=== PATIENT | male | born 1950 | race Caucasian/White ===

== ENCOUNTER 2017-04-21 19:14 | Emergency (ER) | payer MEDICARE, OTHER ==
[~2017-04-21] VITALS: Ht 160 cm; Wt 86.2 kg
[~2017-04-21 19:14] MED LIST: ABILIFY5 MG ORAL; AMLODIPINE BESY10 MG ORAL; ASPIRIN81 MG ORAL; ATORVASTATIN CA20 MG ORAL; CHLORPROPAMIDE250 MG PO; CITALOPRAM HBR20 M1 ORAL; HYTRIN2 MG PO; LEVOTHYROXINE100 MCG ORAL; LEXAPRO20 MG ORAL; METOPROLOL SUCC25 MG ORAL; METOPROLOL TART50 M1 ORAL; MIRTAZAPINE15 M3 ORAL; NITROSTAT0.4 M2 SL
[2017-04-21 19:30] VITALS: BP 133/63
--- NOTE | 2017-04-21 19:37 | Emergency Room Report ---
History of Present Illness General Chief Complaint: Male Urogenital Problems Source: Patient Present Illness HPI Patient present with complaints of burning with urination he also feels that he has not been able to control his urine over the past one to 2 days Denies any retention denies any bloating or fullness sensation Denies any back or flank pain denies any change in medications denies any fevers or chills Allergies: Coded Allergies: CODEINE (Verified Allergy, Unknown, 06/19/13) Patient History Past Medical History: see triage record Pertinent Family History: none Reviewed Nursing Documentation: PMH: Agreed, PSxH: Agreed Nursing Documentation-PMH Hx Hypertension: Yes Hx Diabetes: Yes - Insipidus Review of Systems All Other Systems: negative except mentioned in HPI Physical Exam Vital Signs Date Time Temp Pulse Resp B/P (MAP) Pulse Ox O2 Delivery O2 Flow Rate FiO2 04/21/17 19:20 99.5 100 16 133/63 99 Room Air Sp02 EP Interpretation: reviewed, normal General Appearance: well appearing, no apparent distress Head: normocephalic, atraumatic Eyes: bilateral eye PERRL, bilateral eye EOMI ENT: hearing grossly normal, normal pharynx, TMs + canals normal, uvula midline Neck: full range of motion, supple, no meningismus, no bony tend Respiratory: lungs clear, normal breath sounds, no rhonchi, no respiratory distress, no retraction, no accessory muscle use Cardiovascular #1: normal peripheral pulses, regular rate, rhythm, no edema, no gallop, no JVD, no murmur Gastrointestinal: normal bowel sounds, non tender, soft, no mass, no organomegaly, non-distended, no guarding, no hernia, no pulsatile mass, no rebound Genitourinary: no CVA tenderness Musculoskeletal: normal inspection Neurologic: oriented x3, responsive, blasting entryman III-XII nml as tested, motor strength/ tone normal, sensory intact Psychiatric: mood/affect normal Skin: normal color, no rash, warm/dry, palpation normal Lymphatic: normal inspection, no adenopathy Medical Decision Making Diagnostic Impression: Primary Impression: UTI (urinary tract infection) ER Course Given the patient's history examined presentation urine sample was obtained There is clear signs of significant infection given this finding patient was given IM injection of Rocephin Requires antibiotic coverage close followup with primary physician for reevaluation As this infection could progress to pyelonephritis and sepsis patient is time not showing any signs of that and is appropriate for initial conservative outpatient trial Labs Test 04/21/17 19:50 Urine Color Yellow Urine Appearance Cloudy Urine pH 5 (4.5-8.0) Urine Specific [place] 1.020 (1.005-1.035) Urine Protein 3+ (NEGATIVE) Urine Glucose (UA) Negative (NEGATIVE) Urine Ketones Negative (NEGATIVE) Urine Occult Blood 5+ (NEGATIVE) Urine Nitrite Positive (NEGATIVE) Urine Bilirubin Negative (NEGATIVE) Urine Urobilinogen Normal MG/DL (0.0-1.0) Urine Leukocyte Esterase 3+ (NEGATIVE) Urine RBC 5-10 /HPF (0 - 0) Urine WBC Tntc /HPF (0 - 0) Urine Squamous Epithelial Cells None /LPF (NONE/OCC) Urine Bacteria Many /HPF (NONE) Last Vital Signs Date Time Temp Pulse Resp B/P (MAP) Pulse Ox O2 Delivery O2 Flow Rate FiO2 04/21/17 19:20 99.5 100 16 133/63 99 Room Air Status: improved Disposition: HOME, SELF-CARE Condition: Improved Additional Instructions: Patient is provided with the discharge instructions notified to follow up with primary doctor in the next 2-3 days otherwise return to the er with any worsening symptoms. Please note that this report is being documented using Curbside technology. This can lead to erroneous entry secondary to incorrect interpretation by the dictating instrument. SHERINE SAUL D.O. Apr 21, 2017 19:37
[2017-04-21 20:23] LABS: APPEARANCE,URINE CLOUDY; KETONES,URINE NEGATIVE (NEGATIVE); LEUKOCYTE ESTERASE ,URINE 3+ (NEGATIVE); NITRITE,URINE POSITIVE (NEGATIVE); PH,URINE 5 (4.5-8.0); PROTEIN,URINE 3+ (NEGATIVE); UROBILINOGEN,URINE NORMAL MG/DL (0.0-1.0)
[2017-04-21 20:40] LABS: BACTERIA,URINE MANY /HPF; WBC,URINE TNTC /HPF (0 - 0)
[2017-04-21] MEDS ORDERED: KEFLEX500 MG ORAL (20:57)
[2017-04-21] MEDS ORDERED: Lidocaine 1% MPF 10mg/ml 5ml IM ONE (21:00)
[2017-04-21 21:25] VITALS: BP 128/59
== END 2017-04-21 21:25 | disposition home or self-care (01) ==
LOC: EMR 19:47
DX: N39.0 Urinary tract infection, site not specified (principal); I10 Essential (primary) hypertension; E23.2 Diabetes insipidus; Z88.6 Allergy status to analgesic agent
CPT/HCPCS: 81003; 87086; 87181; 96372; 99284; J0696

== ENCOUNTER 2017-05-10 09:37 | Inpatient (IN) | payer MEDICARE, OTHER ==
[~2017-05-10] VITALS: Ht 160 cm; Wt 85.7 kg
[~2017-05-10 09:37] MED LIST changes: +KEFLEX500 MG ORAL
[2017-05-10 10:00] VITALS: BP 147/54
[2017-05-10 10:53] LABS: BASOPHILS % (AUTO) 0.4 % (0.0-2.0); EOSINOPHILS % (AUTO) 0.4 % (0.0-3.0); LYMPHOCYTES % (AUTO) 11.1 % (20.0-45.0); MEAN CORPUSCULAR HEMOGLOBIN 28.1 PG (27.0-31.0); MEAN CORPUSCULAR HGB CONC 32.2 G/DL (32.0-36.0); MEAN CORPUSCULAR VOLUME 87 FL (80-99); MEAN PLATELET VOLUME 5.7 FL (6.5-10.1); MONOCYTES % (AUTO) 3.6 % (1.0-10.0); NEUTROPHILS % (AUTO) 84.5 % (45.0-75.0); PLATELET COUNT 250 K/UL (150-450); RED BLOOD COUNT 4.65 M/UL (4.70-6.10); WHITE BLOOD COUNT 10.6 K/UL (4.8-10.8)
[2017-05-10 10:58] VITALS: BP 138/53
[2017-05-10 10:59] LABS: ANION GAP 8 mmol/L (5-15); CALCIUM 8.9 MG/DL (8.5-10.1); CARBON DIOXIDE 26 MMOL/L (21-32); CHLORIDE 96 MMOL/L (98-107); CREATININE 1.2 MG/DL (0.55-1.30); GLOMERULAR FILTRATION RATE > 60 mL/min (>60); POTASSIUM 3.9 MMOL/L (3.5-5.1); SODIUM 130 MMOL/L (136-145)
[2017-05-10 11:06] LABS: APPEARANCE,URINE CLOUDY; KETONES,URINE NEGATIVE (NEGATIVE); LEUKOCYTE ESTERASE ,URINE 3+ (NEGATIVE); NITRITE,URINE POSITIVE (NEGATIVE); PH,URINE 5 (4.5-8.0); PROTEIN,URINE 3+ (NEGATIVE); UROBILINOGEN,URINE NORMAL MG/DL (0.0-1.0)
[2017-05-10 11:10] LABS: REFLEX LACTIC ACID YES OR NO YES
[2017-05-10 11:18] LABS: BACTERIA,URINE MANY /HPF; RBC,URINE 15-20 /HPF (0 - 0); SQUAMOUS EPITHELIAL CELL,UR OCCASIONAL /LPF (NONE/OCC); WBC,URINE TNTC /HPF (0 - 0)
[2017-05-10 11:21] LABS: ALANINE AMINOTRANSFERASE 29 U/L (12-78); ALBUMIN/GLOBULIN RATIO 0.9 (1.0-2.7); ASPARTATE AMINO TRANSFERASE 18 U/L (15-37); CKMB 1.6 NG/ML (0.0-3.6); TOTAL PROTEIN 7.4 G/DL (6.4-8.2)
[2017-05-10 11:48] LABS: ICTOTEST NEGATIVE
[2017-05-10] MEDS ORDERED: cefTRIAXone 1 GM in NS 55 ML IVPB ONE (12:30)
[2017-05-10 13:53] VITALS: BP 117/72
[2017-05-10] MEDS ORDERED: Albuterol/Ipratropium 3ml neb HHN PRN (14:15)
[2017-05-10] MEDS ORDERED: Miralax 17gm pkt ORAL PRN (14:15)
--- NOTE | 2017-05-10 14:16 | Consultation ---
History of Present Illness General Date patient seen: May 10, 2017 Chief Complaint: Male Urogenital Problems Reason for Consultation: inpatient management Present Illness HPI 66 year old male with hx of Depression, DM, HTN, Hypothyroid present to ER with CC of burning pain with urination and unable to empty my bladder x 1 day; patient is admitted ofr UTI and intractable pain. Allergies: Coded Allergies: CODEINE (Verified Allergy, Unknown, 06/19/13) GRAPEFRUIT (Verified Allergy, Unknown, 05/10/17) Medication History Scheduled Amlodipine Besylate* (Amlodipine Besylate*), 5 MG ORAL DAILY, (Reported) Aripiprazole* (Abilify*), 5 MG ORAL DAILY Aspirin* (Aspirin*), 81 MG ORAL DAILY, (Reported) Atorvastatin Calcium* (Atorvastatin Calcium*), 20 MG ORAL BEDTIME, (Reported) Cephalexin* (Keflex*), 500 MG ORAL Q6H Chlorpropamide (Chlorpropamide), 250 MG PO every other day, (Reported) Citalopram Hydrobromide* (Citalopram Hbr*), 10 MG ORAL DAILY, (Reported) Levothyroxine Sodium* (Levothyroxine Sodium*), 100 MCG ORAL DAILY, (Reported) Metoprolol Succinate* (Metoprolol Succinate*), 25 MG ORAL DAILY, (Reported) Mirtazapine* (Mirtazapine*), 15 MG ORAL BEDTIME, (Reported) Terazosin HCl (Terazosin HCl), 2 MG PO QHS, (Reported) Scheduled PRN Nitroglycerin (Nitrostat), 0.4 MG SL unknown PRN for chest pain, (Reported) Patient History Healthcare decision maker Resuscitation status Full Code Advanced Directive on File Past Medical/Surgical History Past Medical/Surgical History: (1) Diabetes (2) Hypothyroid Review of Systems Constitutional: Reports: no symptoms Eye: Reports: no symptoms ENT: Reports: no symptoms Physical Exam General Appearance: WD/WN Lines, tubes and drains: peripheral, PICC HEENT: normocephalic, anicteric Neck: non-tender, normal alignment, limited range of motion Respiratory/Chest: lungs clear Cardiovascular/Chest: normal peripheral pulses, normal rate Abdomen: normal bowel sounds, non tender Genitourinary/Rectal: normal genital exam Last 24 Hour Vital Signs Date Time Temp Pulse Resp B/P (MAP) Pulse Ox O2 Delivery O2 Flow Rate FiO2 05/10/17 13:53 97.2 98 20 117/72 99 Room Air 05/10/17 13:03 98.1 70 16 132/60 98 Room Air 05/10/17 10:58 98.1 69 14 138/53 97 Room Air 05/10/17 10:00 98.1 14 147/54 97 Room Air 05/10/17 09:44 98.1 78 14 147/54 97 Room Air Laboratory Tests Test 05/10/17 10:27 White Blood Count 10.6 K/UL (4.8-10.8) Red Blood Count 4.65 M/UL (4.70-6.10) L Hemoglobin 13.1 G/DL (14.2-18.0) L Hematocrit 40.6 % (42.0-52.0) L Mean Corpuscular Volume 87 FL (80-99) Mean Corpuscular Hemoglobin 28.1 PG (27.0-31.0) Mean Corpuscular Hemoglobin Concent 32.2 G/DL (32.0-36.0) Red Cell Distribution Width 12.0 % (11.6-14.8) Platelet Count 250 K/UL (150-450) Mean Platelet Volume 5.7 FL (6.5-10.1) L Neutrophils (%) (Auto) 84.5 % (45.0-75.0) H Lymphocytes (%) (Auto) 11.1 % (20.0-45.0) L Monocytes (%) (Auto) 3.6 % (1.0-10.0) Eosinophils (%) (Auto) 0.4 % (0.0-3.0) Basophils (%) (Auto) 0.4 % (0.0-2.0) Urine Color Jewell Urine Appearance Cloudy Urine pH 5 (4.5-8.0) Urine Specific [place] 1.025 (1.005-1.035) Urine Protein 3+ (NEGATIVE) H Urine Glucose (UA) Negative (NEGATIVE) Urine Ketones Negative (NEGATIVE) Urine Occult Blood 5+ (NEGATIVE) H Urine Nitrite Positive (NEGATIVE) H Urine Bilirubin Negative (NEGATIVE) Urine Ictotest Negative Urine Urobilinogen Normal MG/DL (0.0-1.0) Urine Leukocyte Esterase 3+ (NEGATIVE) H Urine RBC 15-20 /HPF (0 - 0) H Urine WBC Tntc /HPF (0 - 0) H Urine Squamous Epithelial Cells Occasional /LPF Urine Bacteria Many /HPF (NONE) H Sodium Level 130 MMOL/L (136-145) L Potassium Level 3.9 MMOL/L (3.5-5.1) Chloride Level 96 MMOL/L (98-107) L Carbon Dioxide Level 26 MMOL/L (21-32) Anion Gap 8 mmol/L (5-15) Blood Urea Nitrogen 18 mg/dL (7-18) Creatinine 1.2 MG/DL (0.55-1.30) Estimat Glomerular Filtration Rate > 60 mL/min (>60) Glucose Level 194 MG/DL (74-106) H Lactic Acid Level 2.10 mmol/L (0.66-2.22) Calcium Level 8.9 MG/DL (8.5-10.1) Total Bilirubin 0.9 MG/DL (0.2-1.0) Aspartate Amino Transf (AST/SGOT) 18 U/L (15-37) Alanine Aminotransferase (ALT/SGPT) 29 U/L (12-78) Alkaline Phosphatase 99 U/L (46-116) Total Creatine Kinase 60 U/L (26-308) Creatine Kinase MB 1.6 NG/ML (0.0-3.6) Creatine Kinase MB Relative Index 2.6 Total Protein 7.4 G/DL (6.4-8.2) Albumin 3.4 G/DL (3.4-5.0) Globulin 4.0 g/dL Albumin/Globulin Ratio 0.9 (1.0-2.7) L Height (Feet): 5 Height (Inches): 3.00 Weight (Pounds): 189 Assessment/Plan Problem List: (1) Sepsis ICD Codes: A41.9 - Sepsis, unspecified organism SNOMED: 95630031 (2) UTI (urinary tract infection) ICD Codes: N39.0 - Urinary tract infection, site not specified SNOMED: 73507747 (3) Hyponatremia ICD Codes: E87.1 - Hypo-osmolality and hyponatremia SNOMED: 97322621 (4) Diabetes ICD Codes: E11.9 - Type 2 diabetes mellitus without complications SNOMED: 59775311 Assessment/Plan urine cultures IV abx sliding scale check T3, T4 diabetic diet dvt prophylaxis ZARRABI,MIRALI May 10, 2017 14:16
[2017-05-10 17:20] VITALS: BP 150/63
[2017-05-10] MEDS: Cefepime HCl 2 GM in NS 110 ML IV SCH (17:25)
[2017-05-10 21:00] VITALS: BP 132/63
[2017-05-10] MEDS: Heparin 5000 units/ml inj SUBQ SCH (21:00)
[2017-05-10] MEDS: Terazosin 2mg cap ORAL SCH (22:03)
[2017-05-11] VITALS: BP 131/63
--- NOTE | 2017-05-11 00:30 | History and Physical Report ---
DATE OF ADMISSION: 05/10/2017 TIME SEEN: At 1 p.m. CONSULTANTS: 1. Chelsea Quigley M.D. 2. Kendall Duncan M.D. 3. Dr. Rodarte. CHIEF COMPLAINT: Fever, weakness, UTI, resistant to treatment, hyponatremia. BRIEF HISTORY: A 66-year-old male from home presents to [facility] today with refractory treatment to UTI. He was here about a week ago. He was given cephalexin without improvement. The patient continued to be tired and have fever, diagnosed with UTI, sepsis, and hyponatremia and admitted to medical floor for further treatment. Currently, calm in bed. No complaint. No chest pain or shortness of breath. No nausea, vomiting, or diarrhea. PAST MEDICAL HISTORY: Include diabetes insipidus, hypertension, hypothyroid, prostate issue. PAST SURGICAL HISTORY: Bypass. MEDICATIONS: Include Ceftriaxone and IV fluids. We will obtain other list of medications shortly. ALLERGIES: Codeine. SOCIAL HISTORY: No smoking or alcohol. No intravenous drug abuse. FAMILY HISTORY: Noncontributory. PHYSICAL EXAMINATION: GENERAL: Calm in bed, oriented x3, in no acute distress. VITAL SIGNS: Show temperature is 98 degrees, pulse 70, respirations 16, and blood pressure 132/60. CARDIOVASCULAR: No murmur. LUNGS: Distant and clear. ABDOMEN: Bowel sounds are positive. Nontender and nondistended. EXTREMITIES: No cyanosis, clubbing, or edema. NEUROLOGICAL: The patient moves all extremities slightly weak. LABORATORY DATA: Laboratory exam show hemoglobin 13.1, otherwise CBC is normal. BMP show sodium 130, chloride is 96, glucose 194. Urinalysis show 5+ occult blood, positive nitrite, and 3+ leukocyte esterase. ASSESSMENT: 1. Urinary tract infection. 2. Sepsis. 3. Hyponatremia. 4. Anemia. 5. Diabetes. 6. Hypertension. 7. Hypothyroid. 8. Prostate issue. PLAN: 1. Continue premedications. 2. OT, PT, and dietary evaluation. 3. CBC and BMP in the morning. 4. Antibiotics per Infectious Disease. 5. Resume home medications. 6. Dr. Quigley, Dr. Duncan, and Dr. Rodarte to consult. Garth Madrigal D.O. DR: Mulugeta JOB#: [id number] CC:
[2017-05-11 04:00] VITALS: BP 132/73
[2017-05-11 07:44] LABS: BASOPHILS % (AUTO) 0.3 % (0.0-2.0); EOSINOPHILS % (AUTO) 0.7 % (0.0-3.0); LYMPHOCYTES % (AUTO) 15.2 % (20.0-45.0); MEAN CORPUSCULAR HEMOGLOBIN 29.5 PG (27.0-31.0); MEAN CORPUSCULAR HGB CONC 34.5 G/DL (32.0-36.0); MEAN CORPUSCULAR VOLUME 85 FL (80-99); MEAN PLATELET VOLUME 6.6 FL (6.5-10.1); NEUTROPHILS % (AUTO) 77.8 % (45.0-75.0); PLATELET COUNT 251 K/UL (150-450); RED BLOOD COUNT 4.17 M/UL (4.70-6.10); RED CELL DISTRIBUTION WIDTH 12.1 % (11.6-14.8); WHITE BLOOD COUNT 9.4 K/UL (4.8-10.8)
[2017-05-11 07:58] LABS: ALANINE AMINOTRANSFERASE 26 U/L (12-78); ALBUMIN/GLOBULIN RATIO 0.8 (1.0-2.7); ANION GAP 7 mmol/L (5-15); ASPARTATE AMINO TRANSFERASE 18 U/L (15-37); CALCIUM 8.8 MG/DL (8.5-10.1); CARBON DIOXIDE 27 MMOL/L (21-32); CHLORIDE 98 MMOL/L (98-107); CREATININE 1.1 MG/DL (0.55-1.30); GLOMERULAR FILTRATION RATE > 60 mL/min (>60); POTASSIUM 3.9 MMOL/L (3.5-5.1); SODIUM 132 MMOL/L (136-145); TOTAL PROTEIN 6.8 G/DL (6.4-8.2)
[2017-05-11 08:00] VITALS: BP 107/54
[2017-05-11 08:06] LABS: BILIRUBIN,DIRECT 0.2 MG/DL (0.0-0.3)
--- NOTE | 2017-05-11 08:22 | General Progress Note ---
Assessment/Plan Problem List: (1) Sepsis ICD Codes: A41.9 - Sepsis, unspecified organism SNOMED: 28766493 (2) Hyponatremia ICD Codes: E87.1 - Hypo-osmolality and hyponatremia SNOMED: 89367398 (3) Diabetes ICD Codes: E11.9 - Type 2 diabetes mellitus without complications SNOMED: 83103282 (4) HTN (hypertension) ICD Codes: I10 - Essential (primary) hypertension SNOMED: 29828804 (5) Hypothyroid ICD Codes: E03.9 - Hypothyroidism, unspecified SNOMED: 31849242 (6) Anemia ICD Codes: D64.9 - Anemia, unspecified SNOMED: 418349597 (7) UTI (urinary tract infection) ICD Codes: N39.0 - Urinary tract infection, site not specified SNOMED: 01625869 Status: stable, progressing, tolerating diet Assessment/Plan ot pt diet bs control abx cbc bmp am Subjective Constitutional: Reports: weakness Allergies: Coded Allergies: CODEINE (Verified Allergy, Unknown, 06/19/13) GRAPEFRUIT (Verified Allergy, Unknown, 05/10/17) All Systems: reviewed and negative except above Subjective calm in bed Objective Last 24 Hour Vital Signs Date Time Temp Pulse Resp B/P (MAP) Pulse Ox O2 Delivery O2 Flow Rate FiO2 05/11/17 04:00 98.4 62 18 132/73 96 Room Air 05/11/17 00:00 99.1 72 18 131/63 96 Room Air 05/10/17 21:00 99.2 73 18 132/63 96 Room Air 05/10/17 19:49 71 20 Room Air 05/10/17 17:20 98.0 68 20 150/63 98 Room Air 05/10/17 13:53 97.2 98 20 117/72 99 Room Air 05/10/17 13:03 98.1 70 16 132/60 98 Room Air 05/10/17 10:58 98.1 69 14 138/53 97 Room Air 05/10/17 10:00 98.1 14 147/54 97 Room Air 05/10/17 09:44 98.1 78 14 147/54 97 Room Air Laboratory Tests 05/10/17 10:27: White Blood Count 10.6, Red Blood Count 4.65L, Hemoglobin 13.1L, Hematocrit 40.6L, Mean Corpuscular Volume 87, Mean Corpuscular Hemoglobin 28.1, Mean Corpuscular Hemoglobin Concent 32.2, Red Cell Distribution Width 12.0, Platelet Count 250, Mean Platelet Volume 5.7L, Neutrophils (%) (Auto) 84.5H, Lymphocytes (%) (Auto) 11.1L, Monocytes (%) (Auto) 3.6, Eosinophils (%) (Auto) 0.4, Basophils (%) (Auto) 0.4, Urine Color Jewell, Urine Appearance Cloudy, Urine pH 5 , Urine Specific [place] 1.025, Urine Protein 3+H, Urine Glucose (UA) Negative, Urine Ketones Negative, Urine Occult Blood 5+H, Urine Nitrite PositiveH, Urine Bilirubin Negative, Urine Ictotest Negative, Urine Urobilinogen Normal, Urine Leukocyte Esterase 3+H, Urine RBC 15-20H, Urine WBC TntcH, Urine Squamous Epithelial Cells Occasional, Urine Bacteria ManyH, Sodium Level 130L, Potassium Level 3.9, Chloride Level 96L, Carbon Dioxide Level 26, Anion Gap 8, Blood Urea Nitrogen 18, Creatinine 1.2, Estimat Glomerular Filtration Rate > 60, Glucose Level 194H, Lactic Acid Level 2.10, Calcium Level 8.9, Total Bilirubin 0.9, Aspartate Amino Transf (AST/SGOT) 18, Alanine Aminotransferase (ALT/SGPT) 29, Alkaline Phosphatase 99, Total Creatine Kinase 60, Creatine Kinase MB 1.6, Creatine Kinase MB Relative Index 2.6, Total Protein 7.4, Albumin 3.4, Globulin 4.0, Albumin/Globulin Ratio 0.9L 05/11/17 06:31: White Blood Count 9.4, Red Blood Count 4.17L, Hemoglobin 12.3L, Hematocrit 35.6L , Mean Corpuscular Volume 85, Mean Corpuscular Hemoglobin 29.5, Mean Corpuscular Hemoglobin Concent 34.5, Red Cell Distribution Width 12.1, Platelet Count 251, Mean Platelet Volume 6.6, Neutrophils (%) (Auto) 77.8H, Lymphocytes ( %) (Auto) 15.2L, Monocytes (%) (Auto) 6.0, Eosinophils (%) (Auto) 0.7, Basophils (%) (Auto) 0.3, Sodium Level 132L, Potassium Level 3.9, Chloride Level 98, Carbon Dioxide Level 27, Anion Gap 7, Blood Urea Nitrogen 10, Creatinine 1.1, Estimat Glomerular Filtration Rate > 60, Glucose Level 142H, Calcium Level 8.8, Total Bilirubin 1.3H, Aspartate Amino Transf (AST/SGOT) 18, Alanine Aminotransferase (ALT/SGPT) 26, Alkaline Phosphatase 84, Total Protein 6.8, Albumin 3.1L, Globulin 3.7, Albumin/Globulin Ratio 0.8L, Direct Bilirubin 0.2 Height (Feet): 5 Height (Inches): 3.00 Weight (Pounds): 189 General Appearance: lethargic EENT: normal ENT inspection Neck: normal alignment Cardiovascular: normal peripheral pulses, normal rate, regular rhythm Respiratory/Chest: chest wall non-tender, lungs clear, normal breath sounds Abdomen: normal bowel sounds, non tender, soft Extremities: normal inspection Edema: no edema noted Arm (L), no edema noted Arm (R), no edema noted Leg (L), no edema noted Leg (R), no edema noted Pedal (L), no edema noted Pedal (R), no edema noted Generalized Neurologic: motor weakness Skin: normal pigmentation, warm/dry BRANT HAZEL May 11, 2017 08:22
--- NOTE | 2017-05-11 08:43 | Pulmonology Progress Note ---
Assessment/Plan Problems: (1) Sepsis (2) UTI (urinary tract infection) (3) Hyponatremia (4) Diabetes Assessment/Plan asymptomatic check urine culture anemia w/u check Na in am dc planning soon. Subjective ROS Limited/Unobtainable: No Constitutional: Reports: no symptoms Respiratory: Reports: no symptoms Cardiovascular: Reports: no symptoms Allergies: Coded Allergies: CODEINE (Verified Allergy, Unknown, 06/19/13) GRAPEFRUIT (Verified Allergy, Unknown, 05/10/17) Objective Last 24 Hour Vital Signs Date Time Temp Pulse Resp B/P (MAP) Pulse Ox O2 Delivery O2 Flow Rate FiO2 05/11/17 08:15 71 20 Room Air 05/11/17 04:00 98.4 62 18 132/73 96 Room Air 05/11/17 00:00 99.1 72 18 131/63 96 Room Air 05/10/17 21:00 99.2 73 18 132/63 96 Room Air 05/10/17 19:49 71 20 Room Air 05/10/17 17:20 98.0 68 20 150/63 98 Room Air 05/10/17 13:53 97.2 98 20 117/72 99 Room Air 05/10/17 13:03 98.1 70 16 132/60 98 Room Air 05/10/17 10:58 98.1 69 14 138/53 97 Room Air 05/10/17 10:00 98.1 14 147/54 97 Room Air 05/10/17 09:44 98.1 78 14 147/54 97 Room Air General Appearance: WD/WN HEENT: normocephalic, anicteric Respiratory/Chest: chest wall non-tender, lungs clear Cardiovascular: normal peripheral pulses, regular rhythm Abdomen: normal bowel sounds, no organomegaly Extremities: no cyanosis Skin: no rash Laboratory Tests 05/10/17 10:27: White Blood Count 10.6, Red Blood Count 4.65L, Hemoglobin 13.1L, Hematocrit 40.6L, Mean Corpuscular Volume 87, Mean Corpuscular Hemoglobin 28.1, Mean Corpuscular Hemoglobin Concent 32.2, Red Cell Distribution Width 12.0, Platelet Count 250, Mean Platelet Volume 5.7L, Neutrophils (%) (Auto) 84.5H, Lymphocytes (%) (Auto) 11.1L, Monocytes (%) (Auto) 3.6, Eosinophils (%) (Auto) 0.4, Basophils (%) (Auto) 0.4, Urine Color Jewell, Urine Appearance Cloudy, Urine pH 5 , Urine Specific [place] 1.025, Urine Protein 3+H, Urine Glucose (UA) Negative, Urine Ketones Negative, Urine Occult Blood 5+H, Urine Nitrite PositiveH, Urine Bilirubin Negative, Urine Ictotest Negative, Urine Urobilinogen Normal, Urine Leukocyte Esterase 3+H, Urine RBC 15-20H, Urine WBC TntcH, Urine Squamous Epithelial Cells Occasional, Urine Bacteria ManyH, Sodium Level 130L, Potassium Level 3.9, Chloride Level 96L, Carbon Dioxide Level 26, Anion Gap 8, Blood Urea Nitrogen 18, Creatinine 1.2, Estimat Glomerular Filtration Rate > 60, Glucose Level 194H, Lactic Acid Level 2.10, Calcium Level 8.9, Total Bilirubin 0.9, Aspartate Amino Transf (AST/SGOT) 18, Alanine Aminotransferase (ALT/SGPT) 29, Alkaline Phosphatase 99, Total Creatine Kinase 60, Creatine Kinase MB 1.6, Creatine Kinase MB Relative Index 2.6, Total Protein 7.4, Albumin 3.4, Globulin 4.0, Albumin/Globulin Ratio 0.9L 05/11/17 06:31: White Blood Count 9.4, Red Blood Count 4.17L, Hemoglobin 12.3L, Hematocrit 35.6L , Mean Corpuscular Volume 85, Mean Corpuscular Hemoglobin 29.5, Mean Corpuscular Hemoglobin Concent 34.5, Red Cell Distribution Width 12.1, Platelet Count 251, Mean Platelet Volume 6.6, Neutrophils (%) (Auto) 77.8H, Lymphocytes ( %) (Auto) 15.2L, Monocytes (%) (Auto) 6.0, Eosinophils (%) (Auto) 0.7, Basophils (%) (Auto) 0.3, Sodium Level 132L, Potassium Level 3.9, Chloride Level 98, Carbon Dioxide Level 27, Anion Gap 7, Blood Urea Nitrogen 10, Creatinine 1.1, Estimat Glomerular Filtration Rate > 60, Glucose Level 142H, Calcium Level 8.8, Total Bilirubin 1.3H, Aspartate Amino Transf (AST/SGOT) 18, Alanine Aminotransferase (ALT/SGPT) 26, Alkaline Phosphatase 84, Total Protein 6.8, Albumin 3.1L, Globulin 3.7, Albumin/Globulin Ratio 0.8L, Direct Bilirubin 0.2 Current Medications Medications (Trade) Dose Ordered Sig/Tez Route PRN Reason Start Time Stop Time Status Last Admin Dose Admin Acetaminophen (Tylenol) 650 mg Q4H PRN ORAL fever 05/10/17 14:15 06/09/17 14:14 Albuterol/ Ipratropium (Albuterol/ Ipratropium) 3 ml Q4H PRN HHN Shortness of Breath 05/10/17 14:15 05/15/17 14:14 Amlodipine Besylate (Norvasc) 5 mg DAILY ORAL 05/11/17 09:00 06/10/17 08:59 Atorvastatin Calcium (Lipitor) 20 mg BEDTIME ORAL 05/10/17 21:00 06/09/17 20:59 05/10/17 22:03 Cefepime HCl 2 gm/ Sodium Chloride 110 ml @ 220 mls/hr DAILY@1700 IV 05/10/17 17:01 05/17/17 17:00 05/10/17 17:25 Heparin Sodium (Porcine) (Heparin 5000 units/ml) 5,000 units EVERY 12 HOURS SUBQ 05/10/17 21:00 06/09/17 20:59 Levothyroxine Sodium (Synthroid) 100 mcg ACBREAKFAST ORAL 05/11/17 06:30 06/10/17 06:29 05/11/17 05:44 Metoprolol Succinate (Toprol XL) 25 mg DAILY ORAL 05/11/17 09:00 06/10/17 08:59 Mirtazapine (Remeron) 15 mg BEDTIME ORAL 05/10/17 21:00 06/09/17 20:59 05/10/17 22:03 Ondansetron HCl (Zofran) 4 mg Q6H PRN IVP Nausea & Vomiting 05/10/17 14:15 06/09/17 14:14 Phenazopyridine HCl (Pyridium) 100 mg DAILYPRN PRN ORAL dysuria 05/10/17 14:15 06/09/17 14:14 05/10/17 17:23 Polyethylene Glycol (Miralax) 17 gm DAILYPRN PRN ORAL Constipation 05/10/17 14:15 06/09/17 14:14 Temazepam (Restoril) 15 mg HSPRN PRN ORAL Insomnia 05/10/17 14:15 05/17/17 14:14 Terazosin HCl (Hytrin) 2 mg QHS ORAL 05/10/17 21:00 06/09/17 20:59 05/10/17 22:03 Vancomycin HCl (Vanco rx to dose) 1 ea DAILY PRN MISC PRN RX TO DOSE PROTOCOL 05/10/17 15:45 06/09/17 15:44 Vancomycin HCl 1 gm/Dextrose 250 ml @ 166.636 mls/hr Q12HR@0600,1800 IVPB 05/10/17 18:00 05/15/17 17:59 05/11/17 05:44 AYSUH COUGHLIN May 11, 2017 08:43
[2017-05-11] MEDS: Metoprolol Succinate XL 25mg tab ORAL SCH (09:00)
[2017-05-11] MEDS ORDERED: NS 275ml ONE (09:39)
[2017-05-11] MEDS ORDERED: Tubing IV Secondary IV ONE (09:39)
[2017-05-11] MEDS: Heparin 5000 units/ml inj SUBQ SCH ×2 (09:44→20:41)
[2017-05-11 12:00] VITALS: BP 126/74
[2017-05-11 16:00] VITALS: BP 130/72
--- NOTE | 2017-05-11 16:54 | Emergency Room Report ---
History of Present Illness General Chief Complaint: Male Urogenital Problems Source: Patient Present Illness HPI Patient presents with complaints of suprapubic discomfort Painful urination Feels generally weak and malaise Patient was here recently with UTI Appears to have failed outpatient therapy he reports that he felt initially somewhat better However now the symptoms are coming back Denies any flank pain denies any neck pain or photophobia Allergies: Coded Allergies: CODEINE (Verified Allergy, Unknown, 06/19/13) GRAPEFRUIT (Verified Allergy, Unknown, 05/10/17) Patient History Past Medical History: see triage record Pertinent Family History: none Reviewed Nursing Documentation: PMH: Agreed, PSxH: Agreed Nursing Documentation-PMH Past Medical History: No History, Except For Hx Cardiac Problems: Yes Hx Hypertension: Yes Hx Pacemaker: No Hx Asthma: No Hx COPD: No Hx Diabetes: Yes - DIABETIC INSIPIDUS Hx Cancer: No Hx Gastrointestinal Problems: No Hx Dialysis: No History Of Psychiatric Problem: Yes - Depression Hx Neurological Problems: No Hx Cerebrovascular Accident: No Hx Seizures: No Review of Systems All Other Systems: negative except mentioned in HPI Physical Exam Vital Signs Date Time Temp Pulse Resp B/P (MAP) Pulse Ox O2 Delivery O2 Flow Rate FiO2 05/10/17 09:44 98.1 78 14 147/54 97 Room Air Sp02 EP Interpretation: reviewed, normal General Appearance: well appearing, no apparent distress Head: normocephalic, atraumatic Eyes: bilateral eye PERRL, bilateral eye EOMI ENT: hearing grossly normal, normal pharynx, TMs + canals normal, uvula midline Neck: full range of motion, supple, no meningismus, no bony tend Respiratory: lungs clear, normal breath sounds, no rhonchi, no respiratory distress, no retraction, no accessory muscle use Cardiovascular #1: normal peripheral pulses, regular rate, rhythm, no edema, no gallop, no JVD, no murmur Gastrointestinal: normal bowel sounds, soft, no mass, no organomegaly, non- distended, no guarding, no hernia, no pulsatile mass, no rebound, tenderness - Uncomfortable on palpation over the suprapubic and mid abdominal region Genitourinary: no CVA tenderness Musculoskeletal: normal inspection Neurologic: oriented x3, responsive, 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, motor strength/ tone normal, sensory intact Psychiatric: mood/affect normal Skin: normal color, no rash, warm/dry, palpation normal Lymphatic: normal inspection, no adenopathy Medical Decision Making Diagnostic Impression: Primary Impression: UTI (urinary tract infection) Additional Impression: sepsis ER Course Multiple differentials considered Included but not limited to sepsis, severe sepsis, UTI, pyelonephritis Patient's a urine sample shows significant infection Given the patient's failed outpatient therapy and general malaise patient will be initiated on IV antibiotics and admitted for further care Labs Test 05/10/17 10:27 05/11/17 06:31 White Blood Count 10.6 K/UL (4.8-10.8) 9.4 K/UL (4.8-10.8) Red Blood Count 4.65 M/UL (4.70-6.10) 4.17 M/UL (4.70-6.10) Hemoglobin 13.1 G/DL (14.2-18.0) 12.3 G/DL (14.2-18.0) Hematocrit 40.6 % (42.0-52.0) 35.6 % (42.0-52.0) Mean Corpuscular Volume 87 FL (80-99) 85 FL (80-99) Mean Corpuscular Hemoglobin 28.1 PG (27.0-31.0) 29.5 PG (27.0-31.0) Mean Corpuscular Hemoglobin Concent 32.2 G/DL (32.0-36.0) 34.5 G/DL (32.0-36.0) Red Cell Distribution Width 12.0 % (11.6-14.8) 12.1 % (11.6-14.8) Platelet Count 250 K/UL (150-450) 251 K/UL (150-450) Mean Platelet Volume 5.7 FL (6.5-10.1) 6.6 FL (6.5-10.1) Neutrophils (%) (Auto) 84.5 % (45.0-75.0) 77.8 % (45.0-75.0) Lymphocytes (%) (Auto) 11.1 % (20.0-45.0) 15.2 % (20.0-45.0) Monocytes (%) (Auto) 3.6 % (1.0-10.0) 6.0 % (1.0-10.0) Eosinophils (%) (Auto) 0.4 % (0.0-3.0) 0.7 % (0.0-3.0) Basophils (%) (Auto) 0.4 % (0.0-2.0) 0.3 % (0.0-2.0) Urine Color [place] Urine Appearance Cloudy Urine pH 5 (4.5-8.0) Urine Specific [place] 1.025 (1.005-1.035) Urine Protein 3+ (NEGATIVE) Urine Glucose (UA) Negative (NEGATIVE) Urine Ketones Negative (NEGATIVE) Urine Occult Blood 5+ (NEGATIVE) Urine Nitrite Positive (NEGATIVE) Urine Bilirubin Negative (NEGATIVE) Urine Ictotest Negative Urine Urobilinogen Normal MG/DL (0.0-1.0) Urine Leukocyte Esterase 3+ (NEGATIVE) Urine RBC 15-20 /HPF (0 - 0) Urine WBC Tntc /HPF (0 - 0) Urine Squamous Epithelial Cells Occasional /LPF Urine Bacteria Many /HPF (NONE) Sodium Level 130 MMOL/L (136-145) 132 MMOL/L (136-145) Potassium Level 3.9 MMOL/L (3.5-5.1) 3.9 MMOL/L (3.5-5.1) Chloride Level 96 MMOL/L (98-107) 98 MMOL/L (98-107) Carbon Dioxide Level 26 MMOL/L (21-32) 27 MMOL/L (21-32) Anion Gap 8 mmol/L (5-15) 7 mmol/L (5-15) Blood Urea Nitrogen 18 mg/dL (7-18) 10 mg/dL (7-18) Creatinine 1.2 MG/DL (0.55-1.30) 1.1 MG/DL (0.55-1.30) Estimat Glomerular Filtration Rate > 60 mL/min (>60) > 60 mL/min (>60) Glucose Level 194 MG/DL (74-106) 142 MG/DL (74-106) Lactic Acid Level 2.10 mmol/L (0.66-2.22) Calcium Level 8.9 MG/DL (8.5-10.1) 8.8 MG/DL (8.5-10.1) Total Bilirubin 0.9 MG/DL (0.2-1.0) 1.3 MG/DL (0.2-1.0) Aspartate Amino Transf (AST/SGOT) 18 U/L (15-37) 18 U/L (15-37) Alanine Aminotransferase (ALT/SGPT) 29 U/L (12-78) 26 U/L (12-78) Alkaline Phosphatase 99 U/L (46-116) 84 U/L (46-116) Total Creatine Kinase 60 U/L (26-308) Creatine Kinase MB 1.6 NG/ML (0.0-3.6) Creatine Kinase MB Relative Index 2.6 Total Protein 7.4 G/DL (6.4-8.2) 6.8 G/DL (6.4-8.2) Albumin 3.4 G/DL (3.4-5.0) 3.1 G/DL (3.4-5.0) Globulin 4.0 g/dL 3.7 g/dL Albumin/Globulin Ratio 0.9 (1.0-2.7) 0.8 (1.0-2.7) Osmolality 278 mOsm/kg (297-317) Direct Bilirubin 0.2 MG/DL (0.0-0.3) Rhythm Strip Diag. Results EP Interpretation: yes Rate: 77 Rhythm: NSR, no PVC's, no ectopy Last Vital Signs Date Time Temp Pulse Resp B/P (MAP) Pulse Ox O2 Delivery O2 Flow Rate FiO2 05/11/17 12:00 98.4 77 18 126/74 98 Room Air Status: improved Disposition: ADMITTED INPATIENT Condition: Serious Referrals: NON PHYSICIAN (PCP) SHERINE SAUL D.O. May 11, 2017 16:54
[2017-05-11] MEDS: Cefepime HCl 2 GM in NS 110 ML IV SCH (17:17)
[2017-05-11] MEDS: Terazosin 2mg cap ORAL SCH (20:35)
[2017-05-11 20:50] VITALS: BP 145/72
--- NOTE | 2017-05-11 21:00 | Consultation ---
DATE OF CONSULTATION: 05/11/2017 INFECTIOUS DISEASES CONSULTATION CONSULTING PHYSICIAN: Do French M.D. REFERRING PHYSICIAN: This consultation has been done on behalf of Dr. Jhonny Hodges. REASON FOR CONSULTATION: Urinary tract infection. HISTORY OF PRESENTING ILLNESS: This is a 66-year-old gentleman with history of diabetes, hypertension, hypothyroidism, coronary artery disease, status post coronary artery bypass graft, who came in because of burning in the urine as well as blood in the urine. He states that it has improved now and Infectious Diseases consultation has been obtained for urinary tract infection. PAST MEDICAL HISTORY: 1. History of diabetes. 2. History of hypertension. 3. History of hypothyroidism. 4. History of prostate problem. 5. Coronary artery disease, status post coronary artery bypass graft. MEDICATIONS: As an inpatient, he is on amlodipine, metoprolol, levothyroxine, atorvastatin, Remeron, Hytrin, subcutaneous heparin, vancomycin, cefepime, albuterol, Tylenol, MiraLAX, Zofran, Restoril, and Pyridium. ALLERGIES: 1. Codeine noted. 2. Grape fruit. SOCIAL HISTORY: No history of smoking, alcohol, or drug use. FAMILY HISTORY: Noncontributory. REVIEW OF SYSTEMS: RESPIRATORY: The patient denies any fever, chills, cough, shortness of breath or chest pain. CARDIAC: No chest pain. No palpitations. No dizziness. No syncope. GASTROINTESTINAL: No nausea, no vomiting, no abdominal pain or diarrhea. GENITOURINARY: He did complain of dysuria and hematuria, which is improving. PHYSICAL EXAMINATION: VITAL SIGNS: Temperature of 98.6, T-max of 99.2, pulse of 71, respiratory rate 20, blood pressure 107/54, and O2 saturation of 99%. HEENT: Pupils are equally reactive to light and accommodation. Mouth appears clean without thrush. NECK: Supple. No adenopathy. No JVD. CARDIOVASCULAR: Regular rate and rhythm. No murmurs. LUNGS: Clear to auscultation bilaterally. No crackles. No wheezes. ABDOMEN: Soft and nontender. No organomegaly. EXTREMITIES: No cyanosis, no clubbing, no edema. LABORATORY DATA: White count of 9.4, hemoglobin 12.3, hematocrit 35.6, MCV 85, and platelet count of 251,000 with neutrophils of 77%. Sodium 132, potassium 3.9, chloride 98, bicarbonate 27, BUN 10, creatinine 1.1, glucose 142, and calcium 8.8. Total bilirubin 1.3, direct bilirubin 0.2. AST 18, ALT 26, and alkaline phosphatase 84. Total protein 6.8 and albumin 3.1. CK of 60 and CK-MB 1.6. UA is showing too numerous to count white cells, LE 3+, and nitrite positive. Urine culture is showing gram-negative rods more than 100,000 colonies. ASSESSMENT: 1. This is a 66-year-old gentleman with history of diabetes and hypertension, who comes in with dysuria and hematuria and is found to have urinary tract infection with gram-negative rods. 2. Diabetes. 3. Hypertension. 4. Coronary artery disease, status post coronary artery bypass graft. PLAN: 1. Continue IV vancomycin and cefepime for now. 2. We will follow up cultures and adjust antibiotics accordingly. I would like to thank, Dr. Garth Madrigal for this consultation. Do French M.D. DR: Elva JOB#: [id number] CC: Garth Madrigal D.O.
[2017-05-12 00:35] VITALS: BP 117/72
[2017-05-12 04:44] VITALS: BP 135/66
[2017-05-12 05:04] LABS: BASOPHILS % (AUTO) 0.4 % (0.0-2.0); EOSINOPHILS % (AUTO) 0.7 % (0.0-3.0); LYMPHOCYTES % (AUTO) 16.3 % (20.0-45.0); MEAN CORPUSCULAR HEMOGLOBIN 29.2 PG (27.0-31.0); MEAN CORPUSCULAR HGB CONC 33.5 G/DL (32.0-36.0); MEAN CORPUSCULAR VOLUME 87 FL (80-99); MEAN PLATELET VOLUME 6.2 FL (6.5-10.1); MONOCYTES % (AUTO) 6.7 % (1.0-10.0); NEUTROPHILS % (AUTO) 75.8 % (45.0-75.0); PLATELET COUNT 288 K/UL (150-450); RED BLOOD COUNT 4.81 M/UL (4.70-6.10); RED CELL DISTRIBUTION WIDTH 12.3 % (11.6-14.8); WHITE BLOOD COUNT 9.6 K/UL (4.8-10.8)
[2017-05-12 05:40] LABS: INR 0.9 (0.9-1.1); PROTHROMBIN TIME 9.7 SEC (9.30-11.50)
[2017-05-12 05:58] LABS: ANION GAP 11 mmol/L (5-15); CALCIUM 9.7 MG/DL (8.5-10.1); CARBON DIOXIDE 24 MMOL/L (21-32); CHLORIDE 104 MMOL/L (98-107); CREATININE 1.2 MG/DL (0.55-1.30); GLOMERULAR FILTRATION RATE > 60 mL/min (>60); POTASSIUM 4.3 MMOL/L (3.5-5.1); SODIUM 139 MMOL/L (136-145)
[2017-05-12 06:45] LABS: FREE T3 2.1 pg/mL (2.3-4.2); THYROID STIMULATING HORMONE 3.273 uiU/mL (0.360-3.740)
[2017-05-12 07:30] LABS: IRON 50 ug/dL (50-175); TOTAL IRON BINDING CAPACITY 336 ug/dL (250-450)
[2017-05-12 07:36] LABS: LACTATE DEHYDROGENASE 210 U/L (81-234); URIC ACID 3.9 MG/DL (2.6-7.2)
[2017-05-12 08:00] VITALS: BP 141/60
[2017-05-12 08:06] LABS: ERYTHROCYTE SEDIMENTATION RATE 61 MM/HR (0-20)
--- NOTE | 2017-05-12 08:46 | General Progress Note ---
Assessment/Plan Problem List: (1) Sepsis ICD Codes: A41.9 - Sepsis, unspecified organism SNOMED: 53818070 (2) Hyponatremia ICD Codes: E87.1 - Hypo-osmolality and hyponatremia SNOMED: 83585787 (3) Diabetes ICD Codes: E11.9 - Type 2 diabetes mellitus without complications SNOMED: 07599964 (4) HTN (hypertension) ICD Codes: I10 - Essential (primary) hypertension SNOMED: 82043101 (5) Hypothyroid ICD Codes: E03.9 - Hypothyroidism, unspecified SNOMED: 19903344 (6) Anemia ICD Codes: D64.9 - Anemia, unspecified SNOMED: 905008176 (7) UTI (urinary tract infection) ICD Codes: N39.0 - Urinary tract infection, site not specified SNOMED: 97787628 Status: stable, progressing, tolerating diet Assessment/Plan ot pt diet bs control abx cbc bmp am dc plan w hh Subjective Constitutional: Reports: weakness Allergies: Coded Allergies: CODEINE (Verified Allergy, Unknown, 06/19/13) GRAPEFRUIT (Verified Allergy, Unknown, 05/10/17) All Systems: reviewed and negative except above Subjective calm in bed Objective Last 24 Hour Vital Signs Date Time Temp Pulse Resp B/P (MAP) Pulse Ox O2 Delivery O2 Flow Rate FiO2 05/12/17 07:30 86 20 Room Air 05/12/17 04:44 98.0 80 19 135/66 96 Room Air 05/12/17 00:35 97.6 65 19 117/72 98 Room Air 05/11/17 22:06 72 20 Room Air 05/11/17 20:50 97.4 70 21 145/72 99 Room Air 05/11/17 16:00 98.9 76 20 130/72 99 Room Air 05/11/17 12:00 98.4 77 18 126/74 98 Room Air 05/11/17 09:00 71 107/54 05/11/17 09:00 71 107/54 Laboratory Tests 05/12/17 04:00: White Blood Count 9.6, Red Blood Count 4.81, Hemoglobin 14.0L, Hematocrit 41.8L , Mean Corpuscular Volume 87, Mean Corpuscular Hemoglobin 29.2, Mean Corpuscular Hemoglobin Concent 33.5, Red Cell Distribution Width 12.3, Platelet Count 288, Mean Platelet Volume 6.2L, Neutrophils (%) (Auto) 75.8H, Lymphocytes (%) (Auto) 16.3L, Monocytes (%) (Auto) 6.7, Eosinophils (%) (Auto) 0.7, Basophils (%) (Auto) 0.4, Erythrocyte Sedimentation Rate 61H, Reticulocyte Count [Pending], Prothrombin Time 9.7, Prothromb Time International Ratio 0.9, Activated Partial Thromboplast Time 30, Sodium Level 139, Potassium Level 4.3, Chloride Level 104, Carbon Dioxide Level 24, Anion Gap 11, Blood Urea Nitrogen 15, Creatinine 1.2, Estimat Glomerular Filtration Rate > 60, Glucose Level 134H , Uric Acid 3.9, Calcium Level 9.7, Iron Level 50, Total Iron Binding Capacity 336, Percent Iron Saturation 15, Unsaturated Iron Binding 286, Lactate Dehydrogenase 210, Vitamin B12 Level 186L, Folate 19.0H, Thyroid Stimulating Hormone (TSH) 3.273, Free Thyroxine 1.50H, Free Triiodothyronine 2.1L, Vancomycin Level Trough 11.9 Height (Feet): 5 Height (Inches): 3.00 Weight (Pounds): 189 General Appearance: alert EENT: normal ENT inspection Neck: normal alignment Cardiovascular: normal peripheral pulses, normal rate, regular rhythm Respiratory/Chest: chest wall non-tender, lungs clear, normal breath sounds Abdomen: normal bowel sounds, non tender, soft Extremities: normal inspection Edema: no edema noted Arm (L), no edema noted Arm (R), no edema noted Leg (L), no edema noted Leg (R), no edema noted Pedal (L), no edema noted Pedal (R), no edema noted Generalized Neurologic: responsive, motor weakness Skin: normal pigmentation, warm/dry BRANT HAZEL May 12, 2017 08:46
[2017-05-12] MEDS: Metoprolol Succinate XL 25mg tab ORAL SCH (09:08)
[2017-05-12] MEDS: Heparin 5000 units/ml inj SUBQ SCH ×2 (09:09→20:34)
--- NOTE | 2017-05-12 10:43 | Pulmonology Progress Note ---
Assessment/Plan Problems: (1) Sepsis (2) UTI (urinary tract infection) (3) Hyponatremia (4) Diabetes Assessment/Plan asymptomatic check urine culture anemia w/u Na better Urine has Ecoli dc planning soon. Subjective ROS Limited/Unobtainable: No Constitutional: Reports: no symptoms HEENT: Repors: no symptoms Respiratory: Reports: no symptoms Allergies: Coded Allergies: CODEINE (Verified Allergy, Unknown, 06/19/13) GRAPEFRUIT (Verified Allergy, Unknown, 05/10/17) Objective Last 24 Hour Vital Signs Date Time Temp Pulse Resp B/P (MAP) Pulse Ox O2 Delivery O2 Flow Rate FiO2 05/12/17 09:08 83 141/60 05/12/17 09:07 83 141/60 05/12/17 08:00 97.0 83 20 141/60 98 Room Air 05/12/17 07:30 86 20 Room Air 05/12/17 04:44 98.0 80 19 135/66 96 Room Air 05/12/17 00:35 97.6 65 19 117/72 98 Room Air 05/11/17 22:06 72 20 Room Air 05/11/17 20:50 97.4 70 21 145/72 99 Room Air 05/11/17 16:00 98.9 76 20 130/72 99 Room Air 05/11/17 12:00 98.4 77 18 126/74 98 Room Air Intake and Output 05/12/17 05/13/17 19:00 07:00 Intake Total 240 ml Balance 240 ml Intake Oral 240 ml General Appearance: WD/WN HEENT: normocephalic, atraumatic Respiratory/Chest: chest wall non-tender, lungs clear Cardiovascular: normal peripheral pulses, regular rhythm Abdomen: soft, non tender, no organomegaly Extremities: no cyanosis, no clubbing Skin: no rash Microbiology Date/Time Source Procedure Growth Status 05/10/17 16:25 Blood Blood Culture - Preliminary NO GROWTH AFTER 24 HOURS Resulted 05/10/17 16:10 Blood Blood Culture - Preliminary NO GROWTH AFTER 24 HOURS Resulted 05/10/17 10:27 Blood Blood Culture - Preliminary NO GROWTH AFTER 24 HOURS Resulted 05/10/17 10:27 Blood Blood Culture - Preliminary NO GROWTH AFTER 24 HOURS Resulted 05/10/17 10:27 Urine,Clean Catch Urine Culture - Final Escherichia Coli Complete Laboratory Tests 05/12/17 04:00: White Blood Count 9.6, Red Blood Count 4.81, Hemoglobin 14.0L, Hematocrit 41.8L , Mean Corpuscular Volume 87, Mean Corpuscular Hemoglobin 29.2, Mean Corpuscular Hemoglobin Concent 33.5, Red Cell Distribution Width 12.3, Platelet Count 288, Mean Platelet Volume 6.2L, Neutrophils (%) (Auto) 75.8H, Lymphocytes (%) (Auto) 16.3L, Monocytes (%) (Auto) 6.7, Eosinophils (%) (Auto) 0.7, Basophils (%) (Auto) 0.4, Erythrocyte Sedimentation Rate 61H, Reticulocyte Count [Pending], Prothrombin Time 9.7, Prothromb Time International Ratio 0.9, Activated Partial Thromboplast Time 30, Sodium Level 139, Potassium Level 4.3, Chloride Level 104, Carbon Dioxide Level 24, Anion Gap 11, Blood Urea Nitrogen 15, Creatinine 1.2, Estimat Glomerular Filtration Rate > 60, Glucose Level 134H , Uric Acid 3.9, Calcium Level 9.7, Iron Level 50, Total Iron Binding Capacity 336, Percent Iron Saturation 15, Unsaturated Iron Binding 286, Lactate Dehydrogenase 210, Vitamin B12 Level 186L, Folate 19.0H, Thyroid Stimulating Hormone (TSH) 3.273, Free Thyroxine 1.50H, Free Triiodothyronine 2.1L, Vancomycin Level Trough 11.9 Current Medications Medications (Trade) Dose Ordered Sig/Tez Route PRN Reason Start Time Stop Time Status Last Admin Dose Admin Acetaminophen (Tylenol) 650 mg Q4H PRN ORAL fever 05/10/17 14:15 06/09/17 14:14 Albuterol/ Ipratropium (Albuterol/ Ipratropium) 3 ml Q4H PRN HHN Shortness of Breath 05/10/17 14:15 05/15/17 14:14 Amlodipine Besylate (Norvasc) 5 mg DAILY ORAL 05/11/17 09:00 06/10/17 08:59 05/12/17 09:07 Atorvastatin Calcium (Lipitor) 20 mg BEDTIME ORAL 05/10/17 21:00 06/09/17 20:59 05/11/17 20:35 Cefepime HCl 2 gm/ Sodium Chloride 110 ml @ 220 mls/hr DAILY@1700 IV 05/10/17 17:01 05/17/17 17:00 05/11/17 17:17 Heparin Sodium (Porcine) (Heparin 5000 units/ml) 5,000 units EVERY 12 HOURS SUBQ 05/10/17 21:00 06/09/17 20:59 05/12/17 09:09 Levothyroxine Sodium (Synthroid) 100 mcg ACBREAKFAST ORAL 05/11/17 06:30 06/10/17 06:29 05/12/17 06:11 Metoprolol Succinate (Toprol XL) 25 mg DAILY ORAL 05/11/17 09:00 06/10/17 08:59 05/12/17 09:08 Mirtazapine (Remeron) 15 mg BEDTIME ORAL 05/10/17 21:00 06/09/17 20:59 05/11/17 20:35 Ondansetron HCl (Zofran) 4 mg Q6H PRN IVP Nausea & Vomiting 05/10/17 14:15 06/09/17 14:14 Phenazopyridine HCl (Pyridium) 100 mg DAILYPRN PRN ORAL dysuria 05/10/17 14:15 06/09/17 14:14 05/10/17 17:23 Polyethylene Glycol (Miralax) 17 gm DAILYPRN PRN ORAL Constipation 05/10/17 14:15 06/09/17 14:14 Temazepam (Restoril) 15 mg HSPRN PRN ORAL Insomnia 05/10/17 14:15 05/17/17 14:14 Terazosin HCl (Hytrin) 2 mg QHS ORAL 05/10/17 21:00 06/09/17 20:59 05/11/17 20:35 Vancomycin HCl (Vanco rx to dose) 1 ea DAILY PRN MISC PRN RX TO DOSE PROTOCOL 05/10/17 15:45 06/09/17 15:44 Vancomycin HCl 1 gm/Dextrose 250 ml @ 166.636 mls/hr Q12HR@0600,1800 IVPB 05/10/17 18:00 05/15/17 17:59 05/12/17 06:38 AYUSH COUGHLIN May 12, 2017 10:43
--- NOTE | 2017-05-12 10:53 | Infectious Diseases Prog Note ---
Assessment/Plan Assessment/Plan A: E. coli UTI Diabetes insipidus Hyponatremia corrected Hypothyroidism P: change antibiotic to Rocephin Subjective ROS Limited/Unobtainable: No Constitutional: Reports: no symptoms Respiratory: Reports: no symptoms Cardiovascular: Reports: no symptoms Gastrointestinal/Abdominal: Reports: no symptoms Genitourinary: Reports: frequency Musculoskeletal: Reports: no symptoms Allergies: Coded Allergies: CODEINE (Verified Allergy, Unknown, 06/19/13) GRAPEFRUIT (Verified Allergy, Unknown, 05/10/17) Objective Vital Signs Last 24 Hour Vital Signs Date Time Temp Pulse Resp B/P (MAP) Pulse Ox O2 Delivery O2 Flow Rate FiO2 05/12/17 09:08 83 141/60 05/12/17 09:07 83 141/60 05/12/17 08:00 97.0 83 20 141/60 98 Room Air 05/12/17 07:30 86 20 Room Air 05/12/17 04:44 98.0 80 19 135/66 96 Room Air 05/12/17 00:35 97.6 65 19 117/72 98 Room Air 05/11/17 22:06 72 20 Room Air 05/11/17 20:50 97.4 70 21 145/72 99 Room Air 05/11/17 16:00 98.9 76 20 130/72 99 Room Air 05/11/17 12:00 98.4 77 18 126/74 98 Room Air Height (Feet): 5 Height (Inches): 3.00 Weight (Pounds): 189 General Appearance: no acute distress HEENT: mucous membranes moist Respiratory/Chest: lungs clear Cardiovascular: normal rate Abdomen: soft, non tender Extremities: no edema Neurologic/Psychiatric: alert, oriented x 3, responsive Microbiology Date/Time Source Procedure Growth Status 05/10/17 16:25 Blood Blood Culture - Preliminary NO GROWTH AFTER 24 HOURS Resulted 05/10/17 16:10 Blood Blood Culture - Preliminary NO GROWTH AFTER 24 HOURS Resulted 05/10/17 10:27 Blood Blood Culture - Preliminary NO GROWTH AFTER 24 HOURS Resulted 05/10/17 10:27 Blood Blood Culture - Preliminary NO GROWTH AFTER 24 HOURS Resulted 05/10/17 10:27 Urine,Clean Catch Urine Culture - Final Escherichia Coli Complete Laboratory Tests Test 05/12/17 04:00 White Blood Count 9.6 K/UL (4.8-10.8) Red Blood Count 4.81 M/UL (4.70-6.10) Hemoglobin 14.0 G/DL (14.2-18.0) L Hematocrit 41.8 % (42.0-52.0) L Mean Corpuscular Volume 87 FL (80-99) Mean Corpuscular Hemoglobin 29.2 PG (27.0-31.0) Mean Corpuscular Hemoglobin Concent 33.5 G/DL (32.0-36.0) Red Cell Distribution Width 12.3 % (11.6-14.8) Platelet Count 288 K/UL (150-450) Mean Platelet Volume 6.2 FL (6.5-10.1) L Neutrophils (%) (Auto) 75.8 % (45.0-75.0) H Lymphocytes (%) (Auto) 16.3 % (20.0-45.0) L Monocytes (%) (Auto) 6.7 % (1.0-10.0) Eosinophils (%) (Auto) 0.7 % (0.0-3.0) Basophils (%) (Auto) 0.4 % (0.0-2.0) Erythrocyte Sedimentation Rate 61 MM/HR (0-20) H Reticulocyte Count Pending Prothrombin Time 9.7 SEC (9.30-11.50) Prothromb Time International Ratio 0.9 (0.9-1.1) Activated Partial Thromboplast Time 30 SEC (23-33) Sodium Level 139 MMOL/L (136-145) Potassium Level 4.3 MMOL/L (3.5-5.1) Chloride Level 104 MMOL/L (98-107) Carbon Dioxide Level 24 MMOL/L (21-32) Anion Gap 11 mmol/L (5-15) Blood Urea Nitrogen 15 mg/dL (7-18) Creatinine 1.2 MG/DL (0.55-1.30) Estimat Glomerular Filtration Rate > 60 mL/min (>60) Glucose Level 134 MG/DL (74-106) H Uric Acid 3.9 MG/DL (2.6-7.2) Calcium Level 9.7 MG/DL (8.5-10.1) Iron Level 50 ug/dL (50-175) Total Iron Binding Capacity 336 ug/dL (250-450) Percent Iron Saturation 15 % (15-50) Unsaturated Iron Binding 286 ug/dL (112-346) Lactate Dehydrogenase 210 U/L (81-234) Vitamin B12 Level 186 PG/ML (193-986) L Folate 19.0 NG/ML (3.1-17.5) H Thyroid Stimulating Hormone (TSH) 3.273 uiU/mL (0.360-3.740) Free Thyroxine 1.50 NG/DL (0.10-1.46) H Free Triiodothyronine 2.1 pg/mL (2.3-4.2) L Vancomycin Level Trough 11.9 ug/mL (5.0-12.0) Current Medications Medications (Trade) Dose Ordered Sig/Tez Route PRN Reason Start Time Stop Time Status Last Admin Dose Admin Acetaminophen (Tylenol) 650 mg Q4H PRN ORAL fever 05/10/17 14:15 06/09/17 14:14 Albuterol/ Ipratropium (Albuterol/ Ipratropium) 3 ml Q4H PRN HHN Shortness of Breath 05/10/17 14:15 05/15/17 14:14 Amlodipine Besylate (Norvasc) 5 mg DAILY ORAL 05/11/17 09:00 06/10/17 08:59 05/12/17 09:07 Atorvastatin Calcium (Lipitor) 20 mg BEDTIME ORAL 05/10/17 21:00 06/09/17 20:59 05/11/17 20:35 Cefepime HCl 2 gm/ Sodium Chloride 110 ml @ 220 mls/hr DAILY@1700 IV 05/10/17 17:01 05/17/17 17:00 05/11/17 17:17 Heparin Sodium (Porcine) (Heparin 5000 units/ml) 5,000 units EVERY 12 HOURS SUBQ 05/10/17 21:00 06/09/17 20:59 05/12/17 09:09 Levothyroxine Sodium (Synthroid) 100 mcg ACBREAKFAST ORAL 05/11/17 06:30 06/10/17 06:29 05/12/17 06:11 Metoprolol Succinate (Toprol XL) 25 mg DAILY ORAL 05/11/17 09:00 06/10/17 08:59 05/12/17 09:08 Mirtazapine (Remeron) 15 mg BEDTIME ORAL 05/10/17 21:00 06/09/17 20:59 05/11/17 20:35 Ondansetron HCl (Zofran) 4 mg Q6H PRN IVP Nausea & Vomiting 05/10/17 14:15 06/09/17 14:14 Phenazopyridine HCl (Pyridium) 100 mg DAILYPRN PRN ORAL dysuria 05/10/17 14:15 06/09/17 14:14 05/10/17 17:23 Polyethylene Glycol (Miralax) 17 gm DAILYPRN PRN ORAL Constipation 05/10/17 14:15 06/09/17 14:14 Temazepam (Restoril) 15 mg HSPRN PRN ORAL Insomnia 05/10/17 14:15 05/17/17 14:14 Terazosin HCl (Hytrin) 2 mg QHS ORAL 05/10/17 21:00 06/09/17 20:59 05/11/17 20:35 Vancomycin HCl (Vanco rx to dose) 1 ea DAILY PRN MISC PRN RX TO DOSE PROTOCOL 05/10/17 15:45 06/09/17 15:44 Vancomycin HCl 1 gm/Dextrose 250 ml @ 166.636 mls/hr Q12HR@0600,1800 IVPB 05/10/17 18:00 05/15/17 17:59 05/12/17 06:38 LUIGI BRAVO May 12, 2017 10:53
[2017-05-12 11:29] LABS: PATH BLOOD SMEAR/OMC SENT TO PATHOLOGIST; RETICULOCYTE COUNT 0.7 % (0.0-2.0)
[2017-05-12 12:00] VITALS: BP 131/64
[2017-05-12] MEDS: cefTRIAXone 1 GM in D5W 55 ML IVPB SCH (12:30)
[2017-05-12 16:00] VITALS: BP 118/79
[2017-05-12 20:08] VITALS: BP 110/62
[2017-05-12] MEDS: Terazosin 2mg cap ORAL SCH (20:34)
--- NOTE | 2017-05-12 23:45 | Consultation ---
DATE OF CONSULTATION: 05/12/2017 ENDOCRINOLOGY CONSULTATION CONSULTING PHYSICIAN: Tristian Hancock M.D. REFERRING PHYSICIAN: Garth Madrigal D.O. REASON FOR CONSULTATION: Hypothyroidism. HISTORY OF PRESENT ILLNESS: The patient is a 66-year-old male with a history of diabetes, hypertension, hypothyroidism, coronary artery disease, status post CABG, who came with burning in the urine as well as blood in the urine. He has been admitted for the treatment of urinary tract infection. Thyroid function test was obtained. TSH is normal. Free T4 elevated. Therefore, Endocrinology was consulted. PAST MEDICAL HISTORY: 1. Type 2 diabetes. 2. Hypertension. 3. Hypothyroidism. 4. Coronary artery disease. 5. Prostate problem. PAST SURGICAL HISTORY: CABG. MEDICATIONS: Reviewed and reconciled. Levothyroxine 100 mcg daily. ALLERGIES: Codeine SOCIAL HISTORY: No smoking, alcohol, or drug use. FAMILY HISTORY: Noncontributory. REVIEW OF SYSTEMS: As per HPI. PHYSICAL EXAMINATION: GENERAL: The patient is awake. VITAL SIGNS: Blood pressure is 141/60, pulse 83, temperature 97, and respiratory rate 20. HEENT: Pupils are equal and reactive to light. Sclerae are anicteric. NECK: No JVD. HEART: Regular. LUNGS: Clear. ABDOMEN: Positive bowel sounds. EXTREMITIES: No clubbing, cyanosis, or edema. LABORATORY DATA: Sodium 139, potassium 4.3, chloride 105, bicarbonate 24, BUN 15, creatinine 1.2, and glucose of 134. TSH of 3.2, free T4 1.5, and free T3 of 2.1. Folate of 19. Cortisol level is pending. DIAGNOSES: 1. Urinary tract infection. 2. Hypothyroidism with abnormal thyroid function test. DISCUSSION: The TSH is normal and this is the most important test for hypothyroidism. The patient is on levothyroxine as an outpatient, the dosage is 100 mcg, he should continue with the same dose. An elevated T4 and a low free T3 are most likely because of the partial noncompliance with medication and then resuming the medication. The dose should remain the same and I will stay with the same dosage. Followup thyroid function test as an outpatient in three to four weeks. Thank you, Dr. Madrigal, for the courtesy of this consultation. Tristian Hancock M.D. DR: Gaudencio JOB#: [id number] CC: [email or web address]
[2017-05-13 04:00] VITALS: BP 123/70
[2017-05-13 08:00] VITALS: BP 118/74
[2017-05-13 08:03] LABS: BASOPHILS % (AUTO) 0.2 % (0.0-2.0); EOSINOPHILS % (AUTO) 2.3 % (0.0-3.0); LYMPHOCYTES % (AUTO) 24.7 % (20.0-45.0); MEAN CORPUSCULAR HGB CONC 33.3 G/DL (32.0-36.0); MEAN CORPUSCULAR VOLUME 87 FL (80-99); MEAN PLATELET VOLUME 6.5 FL (6.5-10.1); MONOCYTES % (AUTO) 7.9 % (1.0-10.0); NEUTROPHILS % (AUTO) 64.9 % (45.0-75.0); PLATELET COUNT 251 K/UL (150-450); RED BLOOD COUNT 4.07 M/UL (4.70-6.10); RED CELL DISTRIBUTION WIDTH 12.4 % (11.6-14.8); WHITE BLOOD COUNT 6.6 K/UL (4.8-10.8)
[2017-05-13 08:20] LABS: ANION GAP 8 mmol/L (5-15); CALCIUM 8.9 MG/DL (8.5-10.1); CARBON DIOXIDE 26 MMOL/L (21-32); CHLORIDE 105 MMOL/L (98-107); CREATININE 1.2 MG/DL (0.55-1.30); GLOMERULAR FILTRATION RATE > 60 mL/min (>60); POTASSIUM 3.9 MMOL/L (3.5-5.1); SODIUM 139 MMOL/L (136-145)
[2017-05-13] MEDS: Metoprolol Succinate XL 25mg tab ORAL SCH (08:50)
[2017-05-13] MEDS: Heparin 5000 units/ml inj SUBQ SCH ×2 (08:53→20:31)
[2017-05-13 12:00] VITALS: BP 125/61
--- NOTE | 2017-05-13 12:43 | Pulmonology Progress Note ---
Assessment/Plan Problems: (1) Sepsis (2) UTI (urinary tract infection) (3) Hyponatremia (4) Diabetes Assessment/Plan difficulty with urination Dr. Melendez from Urology notified check urine culture anemia w/u Na better Urine has Ecoli dc planning soon. Subjective ROS Limited/Unobtainable: No Interval Events: not able to fully void Allergies: Coded Allergies: CODEINE (Verified Allergy, Unknown, 06/19/13) GRAPEFRUIT (Verified Allergy, Unknown, 05/10/17) Objective Last 24 Hour Vital Signs Date Time Temp Pulse Resp B/P (MAP) Pulse Ox O2 Delivery O2 Flow Rate FiO2 05/13/17 08:50 80 118/74 05/13/17 08:50 80 118/74 05/13/17 08:00 97.6 80 20 118/74 97 Room Air 05/13/17 07:58 78 20 Room Air 05/13/17 04:00 97.7 69 18 123/70 97 Room Air 05/12/17 20:08 97.7 69 19 110/62 98 Room Air 05/12/17 19:00 85 20 Room Air 05/12/17 16:00 97.7 91 20 118/79 98 Room Air Intake and Output 05/13/17 05/14/17 19:00 07:00 Intake Total 360 ml Balance 360 ml Intake Oral 360 ml General Appearance: WD/WN HEENT: normocephalic, anicteric Respiratory/Chest: chest wall non-tender, lungs clear Cardiovascular: normal peripheral pulses, normal rate Abdomen: normal bowel sounds, soft, non tender Genitourinary: normal external genitalia Extremities: no clubbing Skin: no ulcers Neurologic/Psychiatric: environmental health sanitarian II-XII grossly normal Lymphatic: no neck adenopathy Microbiology Date/Time Source Procedure Growth Status 05/10/17 16:25 Blood Blood Culture - Preliminary NO GROWTH AFTER 48 HOURS Resulted 05/10/17 16:10 Blood Blood Culture - Preliminary NO GROWTH AFTER 48 HOURS Resulted Laboratory Tests 05/12/17 13:45: Stool Occult Blood Negative 05/13/17 06:35: White Blood Count 6.6, Red Blood Count 4.07L, Hemoglobin 11.8L, Hematocrit 35.4L , Mean Corpuscular Volume 87, Mean Corpuscular Hemoglobin 29.0, Mean Corpuscular Hemoglobin Concent 33.3, Red Cell Distribution Width 12.4, Platelet Count 251, Mean Platelet Volume 6.5, Neutrophils (%) (Auto) 64.9, Lymphocytes (% ) (Auto) 24.7, Monocytes (%) (Auto) 7.9, Eosinophils (%) (Auto) 2.3, Basophils ( %) (Auto) 0.2, Sodium Level 139, Potassium Level 3.9, Chloride Level 105, Carbon Dioxide Level 26, Anion Gap 8, Blood Urea Nitrogen 15, Creatinine 1.2, Estimat Glomerular Filtration Rate > 60, Glucose Level 98, Calcium Level 8.9 Current Medications Medications (Trade) Dose Ordered Sig/Tez Route PRN Reason Start Time Stop Time Status Last Admin Dose Admin Acetaminophen (Tylenol) 650 mg Q4H PRN ORAL fever 05/10/17 14:15 06/09/17 14:14 Albuterol/ Ipratropium (Albuterol/ Ipratropium) 3 ml Q4H PRN HHN Shortness of Breath 05/10/17 14:15 05/15/17 14:14 Amlodipine Besylate (Norvasc) 5 mg DAILY ORAL 05/11/17 09:00 06/10/17 08:59 05/13/17 08:50 Atorvastatin Calcium (Lipitor) 20 mg BEDTIME ORAL 05/10/17 21:00 06/09/17 20:59 05/12/17 20:34 Ceftriaxone Sodium 1 gm/ Dextrose 55 ml @ 110 mls/hr Q24H IVPB 05/12/17 12:00 05/19/17 11:59 05/12/17 12:30 Heparin Sodium (Porcine) (Heparin 5000 units/ml) 5,000 units EVERY 12 HOURS SUBQ 05/10/17 21:00 06/09/17 20:59 05/13/17 08:53 Levothyroxine Sodium (Synthroid) 100 mcg ACBREAKFAST ORAL 05/11/17 06:30 06/10/17 06:29 05/13/17 06:03 Metoprolol Succinate (Toprol XL) 25 mg DAILY ORAL 05/11/17 09:00 06/10/17 08:59 05/13/17 08:50 Mirtazapine (Remeron) 15 mg BEDTIME ORAL 05/10/17 21:00 06/09/17 20:59 05/12/17 20:34 Ondansetron HCl (Zofran) 4 mg Q6H PRN IVP Nausea & Vomiting 05/10/17 14:15 06/09/17 14:14 Phenazopyridine HCl (Pyridium) 100 mg DAILYPRN PRN ORAL dysuria 05/10/17 14:15 06/09/17 14:14 05/10/17 17:23 Polyethylene Glycol (Miralax) 17 gm DAILYPRN PRN ORAL Constipation 05/10/17 14:15 06/09/17 14:14 Temazepam (Restoril) 15 mg HSPRN PRN ORAL Insomnia 05/10/17 14:15 05/17/17 14:14 Terazosin HCl (Hytrin) 2 mg QHS ORAL 05/10/17 21:00 06/09/17 20:59 05/12/17 20:34 AYUSH COUGHLIN May 13, 2017 12:43
[2017-05-13] MEDS: cefTRIAXone 1 GM in D5W 55 ML IVPB SCH (12:49)
--- NOTE | 2017-05-13 13:06 | Infectious Diseases Prog Note ---
Assessment/Plan Assessment/Plan A: E. coli UTI BPH Diabetes insipidus Hyponatremia corrected Hypothyroidism P: continue Rocephin Waiting urologic evaluation Subjective ROS Limited/Unobtainable: No Constitutional: Reports: no symptoms Respiratory: Reports: no symptoms Cardiovascular: Reports: no symptoms Genitourinary: Reports: dysuria, other - bladder dosen't empty completely Allergies: Coded Allergies: CODEINE (Verified Allergy, Unknown, 06/19/13) GRAPEFRUIT (Verified Allergy, Unknown, 05/10/17) Objective Vital Signs Last 24 Hour Vital Signs Date Time Temp Pulse Resp B/P (MAP) Pulse Ox O2 Delivery O2 Flow Rate FiO2 05/13/17 08:50 80 118/74 05/13/17 08:50 80 118/74 05/13/17 08:00 97.6 80 20 118/74 97 Room Air 05/13/17 07:58 78 20 Room Air 05/13/17 04:00 97.7 69 18 123/70 97 Room Air 05/12/17 20:08 97.7 69 19 110/62 98 Room Air 05/12/17 19:00 85 20 Room Air 05/12/17 16:00 97.7 91 20 118/79 98 Room Air Height (Feet): 5 Height (Inches): 3.00 Weight (Pounds): 189 General Appearance: no acute distress HEENT: mucous membranes moist Respiratory/Chest: lungs clear Abdomen: soft, non tender Extremities: no edema Neurologic/Psychiatric: alert, oriented x 3, responsive Microbiology Date/Time Source Procedure Growth Status 05/10/17 16:25 Blood Blood Culture - Preliminary NO GROWTH AFTER 48 HOURS Resulted 05/10/17 16:10 Blood Blood Culture - Preliminary NO GROWTH AFTER 48 HOURS Resulted Laboratory Tests Test 05/12/17 13:45 05/13/17 06:35 Stool Occult Blood Negative (NEGATIVE) White Blood Count 6.6 K/UL (4.8-10.8) Red Blood Count 4.07 M/UL (4.70-6.10) L Hemoglobin 11.8 G/DL (14.2-18.0) L Hematocrit 35.4 % (42.0-52.0) L Mean Corpuscular Volume 87 FL (80-99) Mean Corpuscular Hemoglobin 29.0 PG (27.0-31.0) Mean Corpuscular Hemoglobin Concent 33.3 G/DL (32.0-36.0) Red Cell Distribution Width 12.4 % (11.6-14.8) Platelet Count 251 K/UL (150-450) Mean Platelet Volume 6.5 FL (6.5-10.1) Neutrophils (%) (Auto) 64.9 % (45.0-75.0) Lymphocytes (%) (Auto) 24.7 % (20.0-45.0) Monocytes (%) (Auto) 7.9 % (1.0-10.0) Eosinophils (%) (Auto) 2.3 % (0.0-3.0) Basophils (%) (Auto) 0.2 % (0.0-2.0) Sodium Level 139 MMOL/L (136-145) Potassium Level 3.9 MMOL/L (3.5-5.1) Chloride Level 105 MMOL/L (98-107) Carbon Dioxide Level 26 MMOL/L (21-32) Anion Gap 8 mmol/L (5-15) Blood Urea Nitrogen 15 mg/dL (7-18) Creatinine 1.2 MG/DL (0.55-1.30) Estimat Glomerular Filtration Rate > 60 mL/min (>60) Glucose Level 98 MG/DL (74-106) Calcium Level 8.9 MG/DL (8.5-10.1) Current Medications Medications (Trade) Dose Ordered Sig/Tez Route PRN Reason Start Time Stop Time Status Last Admin Dose Admin Acetaminophen (Tylenol) 650 mg Q4H PRN ORAL fever 05/10/17 14:15 06/09/17 14:14 Albuterol/ Ipratropium (Albuterol/ Ipratropium) 3 ml Q4H PRN HHN Shortness of Breath 05/10/17 14:15 05/15/17 14:14 Amlodipine Besylate (Norvasc) 5 mg DAILY ORAL 05/11/17 09:00 06/10/17 08:59 05/13/17 08:50 Atorvastatin Calcium (Lipitor) 20 mg BEDTIME ORAL 05/10/17 21:00 06/09/17 20:59 05/12/17 20:34 Ceftriaxone Sodium 1 gm/ Dextrose 55 ml @ 110 mls/hr Q24H IVPB 05/12/17 12:00 05/19/17 11:59 05/13/17 12:49 Heparin Sodium (Porcine) (Heparin 5000 units/ml) 5,000 units EVERY 12 HOURS SUBQ 05/10/17 21:00 06/09/17 20:59 05/13/17 08:53 Levothyroxine Sodium (Synthroid) 100 mcg ACBREAKFAST ORAL 05/11/17 06:30 06/10/17 06:29 05/13/17 06:03 Metoprolol Succinate (Toprol XL) 25 mg DAILY ORAL 05/11/17 09:00 06/10/17 08:59 05/13/17 08:50 Mirtazapine (Remeron) 15 mg BEDTIME ORAL 05/10/17 21:00 06/09/17 20:59 05/12/17 20:34 Ondansetron HCl (Zofran) 4 mg Q6H PRN IVP Nausea & Vomiting 05/10/17 14:15 06/09/17 14:14 Phenazopyridine HCl (Pyridium) 100 mg DAILYPRN PRN ORAL dysuria 05/10/17 14:15 06/09/17 14:14 05/10/17 17:23 Polyethylene Glycol (Miralax) 17 gm DAILYPRN PRN ORAL Constipation 05/10/17 14:15 06/09/17 14:14 Temazepam (Restoril) 15 mg HSPRN PRN ORAL Insomnia 05/10/17 14:15 05/17/17 14:14 Terazosin HCl (Hytrin) 2 mg QHS ORAL 05/10/17 21:00 06/09/17 20:59 05/12/17 20:34 LUIGI BRAVO May 13, 2017 13:06
--- NOTE | 2017-05-13 13:11 | General Progress Note ---
Assessment/Plan Problem List: (1) Sepsis ICD Codes: A41.9 - Sepsis, unspecified organism SNOMED: 01809836 (2) Hyponatremia ICD Codes: E87.1 - Hypo-osmolality and hyponatremia SNOMED: 35440180 (3) Diabetes ICD Codes: E11.9 - Type 2 diabetes mellitus without complications SNOMED: 58789454 (4) HTN (hypertension) ICD Codes: I10 - Essential (primary) hypertension SNOMED: 68238420 (5) Hypothyroid ICD Codes: E03.9 - Hypothyroidism, unspecified SNOMED: 38881510 (6) Anemia ICD Codes: D64.9 - Anemia, unspecified SNOMED: 352487683 (7) UTI (urinary tract infection) ICD Codes: N39.0 - Urinary tract infection, site not specified SNOMED: 69140507 Status: progressing Assessment/Plan ot pt diet bs control abx cbc bmp am uro eval dc plan w hh Subjective Constitutional: Reports: weakness Allergies: Coded Allergies: CODEINE (Verified Allergy, Unknown, 06/19/13) GRAPEFRUIT (Verified Allergy, Unknown, 05/10/17) All Systems: reviewed and negative except above Subjective calm in bed cant urintae, request uro eval Objective Last 24 Hour Vital Signs Date Time Temp Pulse Resp B/P (MAP) Pulse Ox O2 Delivery O2 Flow Rate FiO2 05/13/17 08:50 80 118/74 05/13/17 08:50 80 118/74 05/13/17 08:00 97.6 80 20 118/74 97 Room Air 05/13/17 07:58 78 20 Room Air 05/13/17 04:00 97.7 69 18 123/70 97 Room Air 05/12/17 20:08 97.7 69 19 110/62 98 Room Air 05/12/17 19:00 85 20 Room Air 05/12/17 16:00 97.7 91 20 118/79 98 Room Air Intake and Output 05/13/17 05/14/17 19:00 07:00 Intake Total 360 ml Balance 360 ml Intake Oral 360 ml Laboratory Tests 05/12/17 13:45: Stool Occult Blood Negative 05/13/17 06:35: White Blood Count 6.6, Red Blood Count 4.07L, Hemoglobin 11.8L, Hematocrit 35.4L , Mean Corpuscular Volume 87, Mean Corpuscular Hemoglobin 29.0, Mean Corpuscular Hemoglobin Concent 33.3, Red Cell Distribution Width 12.4, Platelet Count 251, Mean Platelet Volume 6.5, Neutrophils (%) (Auto) 64.9, Lymphocytes (% ) (Auto) 24.7, Monocytes (%) (Auto) 7.9, Eosinophils (%) (Auto) 2.3, Basophils ( %) (Auto) 0.2, Sodium Level 139, Potassium Level 3.9, Chloride Level 105, Carbon Dioxide Level 26, Anion Gap 8, Blood Urea Nitrogen 15, Creatinine 1.2, Estimat Glomerular Filtration Rate > 60, Glucose Level 98, Calcium Level 8.9 Height (Feet): 5 Height (Inches): 3.00 Weight (Pounds): 189 General Appearance: alert EENT: normal ENT inspection Neck: normal alignment Cardiovascular: normal peripheral pulses, normal rate, regular rhythm Respiratory/Chest: chest wall non-tender, lungs clear, normal breath sounds Abdomen: normal bowel sounds, non tender, soft Extremities: normal inspection Edema: no edema noted Arm (L), no edema noted Arm (R), no edema noted Leg (L), no edema noted Leg (R), no edema noted Pedal (L), no edema noted Pedal (R), no edema noted Generalized Neurologic: responsive, motor weakness Skin: normal pigmentation, warm/dry BRANT HAZEL May 13, 2017 13:10
[2017-05-13 16:00] VITALS: BP 126/69
[2017-05-13 20:00] VITALS: BP 133/62
[2017-05-13] MEDS: Terazosin 2mg cap ORAL SCH (20:31)
--- NOTE | 2017-05-13 23:31 | Consultation ---
DATE OF CONSULTATION: 05/13/2017 UROLOGY CONSULTATION ATTENDING PHYSICIAN/CONSULTING PHYSICIAN: Garth Madrigal D.O. CHIEF COMPLAINT/HISTORY OF PRESENT ILLNESS: I was asked by Dr. Madrigal to evaluate this very pleasant 66-year-old gentleman regarding history of sensation of incomplete emptying and nocturia. Briefly, the patient has a history of multiple medical issues. He presented to the hospital with dysuria and evidence of urinary tract infection. He reports a baseline history of nocturia approximately 2 to 3 times at night and daytime frequency of 10 times. His force of stream is moderate and he has a sensation of incomplete emptying of his bladder. The patient reports straining to void at times and notes the dysuria as described above. He has no history of previous urinary tract infections or stones or prostate issues other than BPH to his knowledge. He is maintained on terazosin 4 mg at bedtime for bloating symptoms from presumed BPH. PAST MEDICAL HISTORY: 1. Likely BPH. 2. Diabetes insipidus. 3. Hypertension. 4. Hypothyroidism. 5. Hypercholesterolemia. 6. Coronary artery disease. 7. Swollen jaw. PAST SURGICAL HISTORY: 1. Coronary artery bypass graft. 2. Jaw surgery as a child. MEDICATIONS: Please see chart for current medications administration details. ALLERGIES: Codeine and grape fruit. SOCIAL HISTORY: Unremarkable. No tobacco, alcohol or drug use. FAMILY HISTORY: Noncontributory. REVIEW OF SYSTEMS: A 12-system review of systems essentially unremarkable outside what was described above. PHYSICAL EXAMINATION: GENERAL: The patient is an older gentleman, awake, alert, oriented x4, pleasant, no obvious distress. HEENT: NCAT. EOMI. NECK: Supple. Full range of motion. Oropharynx clear. CHEST: Within normal limits. ABDOMEN: Soft, nontender, and nondistended. Mild obese. EXTREMITIES: Normal perfused. No cyanosis, clubbing or edema. BACK: No CVA tenderness to percussion. NEUROLOGIC: Grossly nonfocal. GENITOURINARY: Reveals a circumcised male phallus. No discharge, lesions or curvature. There are bilateral descended testes and cord structures with no masses or tenderness to palpation. LABORATORY AND DIAGNOSTIC DATA: White blood cell count 6.6, hematocrit 35.4, and platelets 261. PT 9.7, INR 0.9, and PTT 30. Urinalysis, specific gravity 1.025, pH 5.0, dip test notable for 3+ protein, 5+ occult blood, and positive nitrites. Microanalysis with 15 to 20 red blood cells per high-power field, too numerous to count white blood cells per high-power field, and many bacteria seen. Sodium 139, potassium 3.9, chloride 105, bicarbonate 26, BUN 15, creatinine 1.2, and glucose 98. Calcium 8.9. Urine culture with 100,000 colonies of E. coli, resistant to ampicillin, gentamicin and Bactrim. Blood cultures negative and final. ASSESSMENT AND PLAN: In summary, this is a 66-year-old gentleman with a history of urinary tract infection with dysuria secondary to same. He presents to the hospital with the same and has a history of nocturia 2 to 3 times at night, daytime frequency and weakened force of stream with sensation of incompletely emptying his bladder despite being on terazosin 4 mg at bedtime. Physical exam reveals no significant abnormalities. Laboratory data is notable for evidence of urinary tract infection and hematuria likely secondary to same. There is no relevant diagnostic imaging. The patient is receiving ceftriaxone for antibiotic coverage, which should treat his infection. Additionally, he is on 2 mg of terazosin at bedtime here in the hospital, but nothing more to help him urinate. He is also receiving Pyridium for pain control. I am going to start the patient on some Flomax at bedtime and stop his terazosin. I have discussed these findings today with him at the bedside. Once his infection is cleared and he is improved and discharged, he will follow up with me in the office for further evaluation and to improve his urinary symptoms and control in an effort to both prevent further infections and improve his symptoms. He verbalized understanding this and wishes to follow with me. Thank you for allowing me to participate in the care of this nice gentleman. Please do not hesitate to contact me for any questions that you further have regarding his care. I will be happy to see him with you. Sander Melendez M.D. DR: ALEX JOB#: [id number] CC:
[2017-05-14] VITALS: BP 138/72
[2017-05-14 04:00] VITALS: BP 134/67
[2017-05-14 07:38] LABS: BASOPHILS % (AUTO) 0.4 % (0.0-2.0); EOSINOPHILS % (AUTO) 2.4 % (0.0-3.0); LYMPHOCYTES % (AUTO) 23.2 % (20.0-45.0); MEAN CORPUSCULAR HEMOGLOBIN 29.8 PG (27.0-31.0); MEAN CORPUSCULAR HGB CONC 34.6 G/DL (32.0-36.0); MEAN CORPUSCULAR VOLUME 86 FL (80-99); MEAN PLATELET VOLUME 6.2 FL (6.5-10.1); MONOCYTES % (AUTO) 6.9 % (1.0-10.0); NEUTROPHILS % (AUTO) 67.1 % (45.0-75.0); PLATELET COUNT 273 K/UL (150-450); RED CELL DISTRIBUTION WIDTH 12.3 % (11.6-14.8); WHITE BLOOD COUNT 5.9 K/UL (4.8-10.8)
[2017-05-14 08:18] LABS: ANION GAP 6 mmol/L (5-15); CALCIUM 8.7 MG/DL (8.5-10.1); CARBON DIOXIDE 28 MMOL/L (21-32); CHLORIDE 100 MMOL/L (98-107); CREATININE 1.1 MG/DL (0.55-1.30); GLOMERULAR FILTRATION RATE > 60 mL/min (>60); SODIUM 134 MMOL/L (136-145)
[2017-05-14 08:25] VITALS: BP 132/69
[2017-05-14] MEDS: Metoprolol Succinate XL 25mg tab ORAL SCH (08:33)
[2017-05-14] MEDS: Heparin 5000 units/ml inj SUBQ SCH (08:35)
[2017-05-14 11:32] VITALS: BP 130/63
[2017-05-14] MEDS: cefTRIAXone 1 GM in D5W 55 ML IVPB SCH (11:50)
--- NOTE | 2017-05-14 13:10 | Infectious Diseases Prog Note ---
Assessment/Plan Assessment/Plan A: E. coli UTI s/p RX BPH Diabetes insipidus Hyponatremia corrected Hypothyroidism P: discontinue Rocephin agree with discharge to home Subjective ROS Limited/Unobtainable: No Constitutional: Reports: no symptoms Respiratory: Reports: no symptoms Cardiovascular: Reports: no symptoms Gastrointestinal/Abdominal: Reports: no symptoms Genitourinary: Reports: dysuria, nocturia Allergies: Coded Allergies: CODEINE (Verified Allergy, Unknown, 06/19/13) GRAPEFRUIT (Verified Allergy, Unknown, 05/10/17) Objective Vital Signs Last 24 Hour Vital Signs Date Time Temp Pulse Resp B/P (MAP) Pulse Ox O2 Delivery O2 Flow Rate FiO2 05/14/17 11:32 97.6 68 20 130/63 99 Room Air 05/14/17 08:33 77 132/69 05/14/17 08:33 77 132/69 05/14/17 08:25 96.7 77 20 132/69 97 Room Air 05/14/17 07:01 78 18 Room Air 05/14/17 04:00 98.0 73 19 134/67 97 Room Air 05/14/17 00:00 97.3 66 18 138/72 97 Room Air 05/13/17 20:00 97.4 72 18 133/62 98 Room Air 05/13/17 16:00 97.8 73 19 126/69 99 Room Air Height (Feet): 5 Height (Inches): 3.00 Weight (Pounds): 189 General Appearance: no acute distress HEENT: mucous membranes moist Respiratory/Chest: lungs clear Cardiovascular: normal rate Abdomen: soft, non tender Extremities: no edema Neurologic/Psychiatric: alert, oriented x 3, responsive Laboratory Tests Test 05/14/17 07:15 White Blood Count 5.9 K/UL (4.8-10.8) Red Blood Count 4.30 M/UL (4.70-6.10) L Hemoglobin 12.8 G/DL (14.2-18.0) L Hematocrit 37.1 % (42.0-52.0) L Mean Corpuscular Volume 86 FL (80-99) Mean Corpuscular Hemoglobin 29.8 PG (27.0-31.0) Mean Corpuscular Hemoglobin Concent 34.6 G/DL (32.0-36.0) Red Cell Distribution Width 12.3 % (11.6-14.8) Platelet Count 273 K/UL (150-450) Mean Platelet Volume 6.2 FL (6.5-10.1) L Neutrophils (%) (Auto) 67.1 % (45.0-75.0) Lymphocytes (%) (Auto) 23.2 % (20.0-45.0) Monocytes (%) (Auto) 6.9 % (1.0-10.0) Eosinophils (%) (Auto) 2.4 % (0.0-3.0) Basophils (%) (Auto) 0.4 % (0.0-2.0) Sodium Level 134 MMOL/L (136-145) L Potassium Level 4.0 MMOL/L (3.5-5.1) Chloride Level 100 MMOL/L (98-107) Carbon Dioxide Level 28 MMOL/L (21-32) Anion Gap 6 mmol/L (5-15) Blood Urea Nitrogen 18 mg/dL (7-18) Creatinine 1.1 MG/DL (0.55-1.30) Estimat Glomerular Filtration Rate > 60 mL/min (>60) Glucose Level 103 MG/DL (74-106) Calcium Level 8.7 MG/DL (8.5-10.1) Current Medications Medications (Trade) Dose Ordered Sig/Tez Route PRN Reason Start Time Stop Time Status Last Admin Dose Admin Acetaminophen (Tylenol) 650 mg Q4H PRN ORAL fever 05/10/17 14:15 06/09/17 14:14 Albuterol/ Ipratropium (Albuterol/ Ipratropium) 3 ml Q4H PRN HHN Shortness of Breath 05/10/17 14:15 05/15/17 14:14 Amlodipine Besylate (Norvasc) 5 mg DAILY ORAL 05/11/17 09:00 06/10/17 08:59 05/14/17 08:33 Atorvastatin Calcium (Lipitor) 20 mg BEDTIME ORAL 05/10/17 21:00 06/09/17 20:59 05/13/17 20:32 Ceftriaxone Sodium 1 gm/ Dextrose 55 ml @ 110 mls/hr Q24H IVPB 05/12/17 12:00 05/19/17 11:59 05/14/17 11:50 Finasteride (Proscar) 5 mg DAILY ORAL 05/14/17 09:00 06/13/17 08:59 05/14/17 08:33 Heparin Sodium (Porcine) (Heparin 5000 units/ml) 5,000 units EVERY 12 HOURS SUBQ 05/10/17 21:00 06/09/17 20:59 05/14/17 08:35 Levothyroxine Sodium (Synthroid) 100 mcg ACBREAKFAST ORAL 05/11/17 06:30 06/10/17 06:29 05/14/17 06:05 Metoprolol Succinate (Toprol XL) 25 mg DAILY ORAL 05/11/17 09:00 06/10/17 08:59 05/14/17 08:33 Mirtazapine (Remeron) 15 mg BEDTIME ORAL 05/10/17 21:00 06/09/17 20:59 05/13/17 20:32 Ondansetron HCl (Zofran) 4 mg Q6H PRN IVP Nausea & Vomiting 05/10/17 14:15 06/09/17 14:14 Phenazopyridine HCl (Pyridium) 100 mg DAILYPRN PRN ORAL dysuria 05/10/17 14:15 06/09/17 14:14 05/10/17 17:23 Polyethylene Glycol (Miralax) 17 gm DAILYPRN PRN ORAL Constipation 05/10/17 14:15 06/09/17 14:14 Tamsulosin HCl (Flomax) 0.4 mg BEDTIME ORAL 05/14/17 21:00 06/13/17 20:59 Temazepam (Restoril) 15 mg HSPRN PRN ORAL Insomnia 05/10/17 14:15 05/17/17 14:14 LUIGI BRAVO May 14, 2017 13:10
--- NOTE | 2017-05-14 14:42 | Pulmonology Progress Note ---
Assessment/Plan Problems: (1) Sepsis (2) UTI (urinary tract infection) (3) Hyponatremia (4) Diabetes Assessment/Plan difficulty with urination Dr. Melendez from Urology recommended Flomax check urine culture anemia w/u Na better Urine has Ecoli dc planning soon. Subjective ROS Limited/Unobtainable: No Constitutional: Reports: no symptoms HEENT: Repors: no symptoms Respiratory: Reports: no symptoms Cardiovascular: Reports: no symptoms Allergies: Coded Allergies: CODEINE (Verified Allergy, Unknown, 06/19/13) GRAPEFRUIT (Verified Allergy, Unknown, 05/10/17) Objective Last 24 Hour Vital Signs Date Time Temp Pulse Resp B/P (MAP) Pulse Ox O2 Delivery O2 Flow Rate FiO2 05/14/17 11:32 97.6 68 20 130/63 99 Room Air 05/14/17 08:33 77 132/69 05/14/17 08:33 77 132/69 05/14/17 08:25 96.7 77 20 132/69 97 Room Air 05/14/17 07:01 78 18 Room Air 05/14/17 04:00 98.0 73 19 134/67 97 Room Air 05/14/17 00:00 97.3 66 18 138/72 97 Room Air 05/13/17 20:00 97.4 72 18 133/62 98 Room Air 05/13/17 16:00 97.8 73 19 126/69 99 Room Air Intake and Output 05/14/17 05/15/17 19:00 07:00 Intake Total 875 ml Balance 875 ml Intake Oral 820 ml IV Total 55 ml # Voids 3 General Appearance: WD/WN HEENT: normocephalic, atraumatic Respiratory/Chest: chest wall non-tender, normal breath sounds Cardiovascular: normal peripheral pulses, normal rate Abdomen: normal bowel sounds, no organomegaly Laboratory Tests 05/14/17 07:15: White Blood Count 5.9, Red Blood Count 4.30L, Hemoglobin 12.8L, Hematocrit 37.1L , Mean Corpuscular Volume 86, Mean Corpuscular Hemoglobin 29.8, Mean Corpuscular Hemoglobin Concent 34.6, Red Cell Distribution Width 12.3, Platelet Count 273, Mean Platelet Volume 6.2L, Neutrophils (%) (Auto) 67.1, Lymphocytes ( %) (Auto) 23.2, Monocytes (%) (Auto) 6.9, Eosinophils (%) (Auto) 2.4, Basophils (%) (Auto) 0.4, Sodium Level 134L, Potassium Level 4.0, Chloride Level 100, Carbon Dioxide Level 28, Anion Gap 6, Blood Urea Nitrogen 18, Creatinine 1.1, Estimat Glomerular Filtration Rate > 60, Glucose Level 103, Calcium Level 8.7 Current Medications Medications (Trade) Dose Ordered Sig/Tez Route PRN Reason Start Time Stop Time Status Last Admin Dose Admin Acetaminophen (Tylenol) 650 mg Q4H PRN ORAL fever 05/10/17 14:15 06/09/17 14:14 Albuterol/ Ipratropium (Albuterol/ Ipratropium) 3 ml Q4H PRN HHN Shortness of Breath 05/10/17 14:15 05/15/17 14:14 Amlodipine Besylate (Norvasc) 5 mg DAILY ORAL 05/11/17 09:00 06/10/17 08:59 05/14/17 08:33 Atorvastatin Calcium (Lipitor) 20 mg BEDTIME ORAL 05/10/17 21:00 06/09/17 20:59 05/13/17 20:32 Finasteride (Proscar) 5 mg DAILY ORAL 05/14/17 09:00 06/13/17 08:59 05/14/17 08:33 Heparin Sodium (Porcine) (Heparin 5000 units/ml) 5,000 units EVERY 12 HOURS SUBQ 05/10/17 21:00 06/09/17 20:59 05/14/17 08:35 Levothyroxine Sodium (Synthroid) 100 mcg ACBREAKFAST ORAL 05/11/17 06:30 06/10/17 06:29 05/14/17 06:05 Metoprolol Succinate (Toprol XL) 25 mg DAILY ORAL 05/11/17 09:00 06/10/17 08:59 05/14/17 08:33 Mirtazapine (Remeron) 15 mg BEDTIME ORAL 05/10/17 21:00 06/09/17 20:59 05/13/17 20:32 Ondansetron HCl (Zofran) 4 mg Q6H PRN IVP Nausea & Vomiting 05/10/17 14:15 06/09/17 14:14 Phenazopyridine HCl (Pyridium) 100 mg DAILYPRN PRN ORAL dysuria 05/10/17 14:15 06/09/17 14:14 05/10/17 17:23 Polyethylene Glycol (Miralax) 17 gm DAILYPRN PRN ORAL Constipation 05/10/17 14:15 06/09/17 14:14 Tamsulosin HCl (Flomax) 0.4 mg BEDTIME ORAL 05/14/17 21:00 06/13/17 20:59 Temazepam (Restoril) 15 mg HSPRN PRN ORAL Insomnia 05/10/17 14:15 05/17/17 14:14 AYUSH COUGHLIN May 14, 2017 14:42
--- NOTE | 2017-05-14 15:08 | General Progress Note ---
Assessment/Plan Problem List: (1) Sepsis ICD Codes: A41.9 - Sepsis, unspecified organism SNOMED: 23390913 (2) Hyponatremia ICD Codes: E87.1 - Hypo-osmolality and hyponatremia SNOMED: 45342128 (3) Diabetes ICD Codes: E11.9 - Type 2 diabetes mellitus without complications SNOMED: 48052193 (4) HTN (hypertension) ICD Codes: I10 - Essential (primary) hypertension SNOMED: 03671684 (5) Hypothyroid ICD Codes: E03.9 - Hypothyroidism, unspecified SNOMED: 54388128 (6) Anemia ICD Codes: D64.9 - Anemia, unspecified SNOMED: 962727543 (7) UTI (urinary tract infection) ICD Codes: N39.0 - Urinary tract infection, site not specified SNOMED: 68464174 Status: stable, progressing, tolerating diet Assessment/Plan ot pt diet bs control abx dc w hh Subjective Constitutional: Reports: weakness Allergies: Coded Allergies: CODEINE (Verified Allergy, Unknown, 06/19/13) GRAPEFRUIT (Verified Allergy, Unknown, 05/10/17) All Systems: reviewed and negative except above Subjective calm in bed Objective Last 24 Hour Vital Signs Date Time Temp Pulse Resp B/P (MAP) Pulse Ox O2 Delivery O2 Flow Rate FiO2 05/14/17 11:32 97.6 68 20 130/63 99 Room Air 05/14/17 08:33 77 132/69 05/14/17 08:33 77 132/69 05/14/17 08:25 96.7 77 20 132/69 97 Room Air 05/14/17 07:01 78 18 Room Air 05/14/17 04:00 98.0 73 19 134/67 97 Room Air 05/14/17 00:00 97.3 66 18 138/72 97 Room Air 05/13/17 20:00 97.4 72 18 133/62 98 Room Air 05/13/17 16:00 97.8 73 19 126/69 99 Room Air Intake and Output 05/14/17 05/15/17 19:00 07:00 Intake Total 875 ml Balance 875 ml Intake Oral 820 ml IV Total 55 ml # Voids 3 Laboratory Tests 05/14/17 07:15: White Blood Count 5.9, Red Blood Count 4.30L, Hemoglobin 12.8L, Hematocrit 37.1L , Mean Corpuscular Volume 86, Mean Corpuscular Hemoglobin 29.8, Mean Corpuscular Hemoglobin Concent 34.6, Red Cell Distribution Width 12.3, Platelet Count 273, Mean Platelet Volume 6.2L, Neutrophils (%) (Auto) 67.1, Lymphocytes ( %) (Auto) 23.2, Monocytes (%) (Auto) 6.9, Eosinophils (%) (Auto) 2.4, Basophils (%) (Auto) 0.4, Sodium Level 134L, Potassium Level 4.0, Chloride Level 100, Carbon Dioxide Level 28, Anion Gap 6, Blood Urea Nitrogen 18, Creatinine 1.1, Estimat Glomerular Filtration Rate > 60, Glucose Level 103, Calcium Level 8.7 Height (Feet): 5 Height (Inches): 3.00 Weight (Pounds): 189 General Appearance: alert EENT: normal ENT inspection Neck: normal alignment Cardiovascular: normal peripheral pulses, normal rate, regular rhythm Respiratory/Chest: chest wall non-tender, lungs clear, normal breath sounds Abdomen: normal bowel sounds, non tender, soft Extremities: normal inspection Edema: no edema noted Arm (L), no edema noted Arm (R), no edema noted Leg (L), no edema noted Leg (R), no edema noted Pedal (L), no edema noted Pedal (R), no edema noted Generalized Neurologic: responsive, motor weakness Skin: normal pigmentation, warm/dry BRANT HAZEL May 14, 2017 15:08
[2017-05-14 15:34] VITALS: BP 118/65
[2017-05-14 20:24] VITALS: BP 129/76
[2017-05-14] MEDS ORDERED: Tamsulosin 0.4mg cap ORAL SCH (21:00)
--- NOTE | 2017-05-16 13:46 | Discharge Summary ---
Discharge Summary Hospital Course Date of Admission May 10, 2017 at 10:15 Date of Discharge May 14, 2017 at 20:50 Admitting Diagnosis uti, sepsis HPI Vic Marks is a 66 year old male who was admitted on May 10, 2017 at 10:15 for Urinary Tract Infection,Sepsis Hospital Course [id number] Discharge Discharge Disposition Patient was discharged to Home with Discharge Diagnoses: Jayla Balderas NP May 16, 2017 13:46
--- NOTE | 2017-05-16 22:30 | Discharge Summary 2 SIG ---
DATE OF ADMISSION: 05/10/2017 DATE OF DISCHARGE: 05/14/2017 CONSULTANTS: 1. Jhonny Hodges M.D. 2. Chelsea Quigley M.D. 3. Sander Melendez M.D. 4. Tristian Hancock M.D. BRIEF HOSPITAL COURSE: The patient is a 66-year-old male with history of depression, diabetes mellitus, hypertension, hypothyroidism, presented to the ER complaining of burning pain on urination and inability to empty the bladder. On evaluation at ED, urinalysis showed 3+ leukocyte esterase, positive nitrite, urine WBC too many to count, and urine RBC 15 to 20. He has failed outpatient therapy and had continuing symptoms. He was admitted for urinary tract infection and was started on IV vancomycin and cefepime empirically. Thyroid function was checked. TSH was normal, however, T3 and T4 were abnormal. Dr. Hancock was consulted. He was continued on his levothyroxine at 100 mcg daily. Elevated T4 and low free T3 likely because of partial noncompliance with resumption of medication. He was recommended to repeat thyroid function tests in three to four weeks. He was initially hyponatremic on arrival to ED, sodium level 130. He was given IV bolus, sodium level improved. Urine culture showed growth of E. coli. Blood culture did not isolate any growth. He had nocturia and had incomplete emptying of bladder despite being on terazosin. Physical exam revealed no significant abnormalities. Terazosin was discontinued and was given Flomax. He was eventually discharged home to complete antibiotic treatment. FINAL DIAGNOSES: 1. Urinary tract infection with Escherichia coli. 2. Hypothyroidism. 3. Hyponatremia. 4. Hypertension. 5. Diabetes mellitus. 6. Benign prostatic hypertrophy. DISPOSITION: The patient was discharged home with home health. DISCHARGE MEDICATIONS: Refer list. FOLLOWUP: The patient was advised to follow up as an outpatient within a week. Garth Madrigal D.O. I have been assigned to dictate discharge summary on this account and I was not involved in the patient's management. Jayla Balderas N.P. DR: Jose JOB#: [id number] CC: [email or web address]
--- NOTE | 2017-05-19 16:13 | Cardiology Report ---
APPROVED REPORT EKG Measurement Heart [id number] Sinus rhythm with 1st degree AV block T wave abnormality, consider lateral ischemia Abnormal ECG
--- NOTE | 2017-05-20 09:27 | IOP Physician Progress Note ---
IOP Physician Progress Note Problem: depression Description of Symptoms: The patient was recently in the hosptial having had two episodes of UTI, possibly related to BPH. But he is handling this fairly well. Diagnosis [place] I: Schizoaffective disorder [place]: II deferred [place]: III BPH with recent UTI, status p quadruple bypass, hyperthyroidism, high cholesterol, high BP [place]: IV sensitive to stressors [place]: V 31-40 Progress Since Last Eval: The Patient is about the same. Current Med Management: There are no plans to change. Home Meds: Active Scripts Cephalexin* (KEFLEX*) 500 Mg Capsule, 500 MG ORAL Q6H, #40 CAP 0 Refills Prov:SHERINE SAUL D.O. 04/21/17 Aripiprazole* (ABILIFY*) 5 Mg Tablet, 5 MG ORAL DAILY, #30 TAB 0 Refills Prov:REBEKA IBANEZ MD 06/19/13 Reported Medications Mirtazapine* (MIRTAZAPINE*) 15 Mg Tablet, 15 MG ORAL BEDTIME, TAB 11/17/14 Atorvastatin Calcium* (ATORVASTATIN CALCIUM*) 20 Mg Tablet, 20 MG ORAL BEDTIME, TAB 03/25/14 Nitroglycerin (Nitrostat) 0.4 Mg Tab.subl, 0.4 MG SL unknown Y for chest pain, TAB 03/25/14 Terazosin HCl (Terazosin HCl) 2 Mg Cap, 2 MG PO QHS, CAP 0 Refills 03/25/14 Aspirin* (ASPIRIN*) 81 Mg Tab.chew, 81 MG ORAL DAILY, TAB 11/04/13 Metoprolol Succinate* (METOPROLOL SUCCINATE*) 25 Mg Tab.er.24h, 25 MG ORAL DAILY , TAB 11/04/13 Citalopram Hydrobromide* (CITALOPRAM HBR*) 20 Mg Tablet, 10 MG ORAL DAILY, TAB 10/28/13 Chlorpropamide (CHLORPROPAMIDE) 250 Mg Tablet, 250 MG PO every other day, TAB 07/17/13 Levothyroxine Sodium* (LEVOTHYROXINE SODIUM*) 100 Mcg Tablet, 100 MCG ORAL DAILY , TAB Take in the morning on an empty stomach, at least 30 minutes before food. 07/17/13 Amlodipine Besylate* (AMLODIPINE BESYLATE*) 10 Mg Tablet, 5 MG ORAL DAILY, TAB 07/17/13 Appearance: well groomed Affect: constricted Mood: depressed Thought Process: no abnormalities Thought Content: no abnormalities Suicidal/Homicidal Ideations: not present Risk Assessment: low risk at this time Cognition: no abnormalities Accomplishments before DC: Yola patient needs to learn to handle stressors more effectively Comments The physical problems are being managed; he is to see a nurse tomorrow-, who will make a home visit. GLORIA GOLDBERG May 20, 2017 09:27
== END 2017-05-14 20:50 | disposition home health service (06) | DRG 872 ==
LOC: EMR 10:06 → 3E 10:15 → EDBEDREQ 10:46
DX: A41.9 Sepsis, unspecified organism (principal); E23.2 Diabetes insipidus; N39.0 Urinary tract infection, site not specified; E87.1 Hypo-osmolality and hyponatremia; I10 Essential (primary) hypertension; B96.20 Unspecified Escherichia coli [E. coli] as the cause of diseases classified elsewhere; E11.9 Type 2 diabetes mellitus without complications; E03.9 Hypothyroidism, unspecified; Z88.6 Allergy status to analgesic agent; N40.1 Benign prostatic hyperplasia with lower urinary tract symptoms; R39.14 Feeling of incomplete bladder emptying; R35.1 Nocturia; Z95.1 Presence of aortocoronary bypass graft; I25.10 Atherosclerotic heart disease of native coronary artery without angina pectoris; Z91.14 Patient's other noncompliance with medication regimen; E78.00 Pure hypercholesterolemia, unspecified
CPT/HCPCS: 36415; 80048; 80053; 80202; 81003; 82248; 82270; 82533; 82550; 82553; 82607; 82746; 82962; 83540; 83550; 83605; 83615; 83930; 83935; 84300; 84439; 84443; 84481; 84550; 85025; 85044; 85060; 85610; 85651; 85730; 87040; 87086; 87181; 93005; 94664; 99285

== ENCOUNTER 2019-02-02 10:50 | Inpatient (IN) | payer MEDICARE, OTHER ==
[~2019-02-02] VITALS: Ht 160 cm; Wt 87.5 kg
[~2019-02-02 10:50] MED LIST changes: +AMLODIPINE BESYL5 MG ORAL; +ATORVASTATIN CA10 MG ORAL; +CITALOPRAM HBR10 M1 ORAL; +DESMOPRESS10 MCG/0.4 NS; +DESMOPRESSIN A0.2 MG PO; +FLONASE ALLERG9.9 ML NS; +FLUTICASONE PRO16 G1 NASAL; +HYTRIN10 MG PO; +TERAZOSIN HCL2 MG PO; +ZYRTEC10 MG ORAL
[2019-02-02 11:03] VITALS: BP 134/57
--- NOTE | 2019-02-02 11:08 | NUR ---
ED Nurse Note: Patient walked in to ER c/o chest pain 7/10 for last 4 days. pt aao x4 and ambulatory. skin clean and intact. calm and cooperative. pt is in gown and on cardiac rehab nurse. pt reported that pt was resting when chest pain started and it radiates between Rt and Lt chest and bursing sensation.
[2019-02-02 11:14] LABS: BASOPHILS % (AUTO) 0.4 % (0.0-2.0); EOSINOPHILS % (AUTO) 1.2 % (0.0-3.0); HEMATOCRIT 40.1 % (42.0-52.0); HEMOGLOBIN 13.2 G/DL (14.2-18.0); LYMPHOCYTES % (AUTO) 22.4 % (20.0-45.0); MEAN CORPUSCULAR VOLUME 85 FL (80-99); MONOCYTES % (AUTO) 6.8 % (1.0-10.0); NEUTROPHILS % (AUTO) 69.2 % (45.0-75.0); PLATELET COUNT 199 K/UL (150-450); RED BLOOD COUNT 4.73 M/UL (4.70-6.10); WHITE BLOOD COUNT 6.5 K/UL (4.8-10.8)
[2019-02-02] MEDS ORDERED: Aspirin Baby 81mg ORAL ONE (11:15)
[2019-02-02] MEDS ORDERED: FLUTICASONE PRO16 G1 NASAL (11:15)
--- NOTE | 2019-02-02 11:16 | Emergency Room Report ---
History of Present Illness General Chief Complaint: Chest Pain Source: Patient Present Illness HPI Patient is a 68-year-old male presented after increased left-sided chest discomfort. This was intermittent in nature. Patient reports having a bypass surgery approximately 5 years ago. Patient presented after onset of chest discomfort during rest , nonradiating, moderate intensity, no associated exacerbating factors no change in leg swelling, no orthopnea denies being smoker hypertension Allergies: Coded Allergies: CODEINE (Verified Allergy, Unknown, 06/19/13) GRAPEFRUIT (Verified Allergy, Unknown, 05/10/17) Patient History Past Medical History: see triage record Reviewed Nursing Documentation: PMH: Agreed; PSxH: Agreed Nursing Documentation-PMH Hx Cardiac Problems: Yes Hx Hypertension: Yes Hx Pacemaker: No Hx Asthma: No Hx COPD: No Hx Diabetes: Yes - DIABETIC INSIPIDUS Hx Cancer: No Hx Gastrointestinal Problems: No Hx Dialysis: No Hx Neurological Problems: No Hx Cerebrovascular Accident: No Hx Seizures: No Review of Systems All Other Systems: negative except mentioned in HPI Physical Exam Vital Signs Date Time Temp Pulse Resp B/P (MAP) Pulse Ox O2 Delivery O2 Flow Rate FiO2 02/02/19 10:57 98.8 70 16 134/57 (82) 95 Room Air Sp02 EP Interpretation: reviewed, normal General Appearance: normal inspection, well appearing, no apparent distress, alert, obese, Chronically Ill Head: atraumatic ENT: normal ENT inspection, hearing grossly normal, normal voice Neck: normal inspection, full range of motion, supple, no bony tend Respiratory: normal inspection, lungs clear, normal breath sounds, no respiratory distress, no retraction, no wheezing, other - sternotomy scar Cardiovascular #1: regular rate, rhythm, no edema Gastrointestinal: normal inspection, normal bowel sounds, non tender, soft, no guarding, no hernia Genitourinary: no CVA tenderness Musculoskeletal: normal inspection, back normal, normal range of motion Neurologic: normal inspection, alert, oriented x3, responsive, visual effects artist III-XII nml as tested, speech normal Psychiatric: normal inspection, judgement/insight normal, mood/affect normal Medical Decision Making Diagnostic Impression: Primary Impression: ACS (acute coronary syndrome) Additional Impression: HTN (hypertension) ER Course Patient presented for chest pain. Differential diagnosis included but was not limited to ACS, pneumonia, pulmonary embolism, pancreatitis among others. Patient is noted to have some onset of chest discomfort during rest. Prior to pretty significant cardiac history and has had prior CABG. Patient does not appear to be in any distress. He was given aspirin empirically. EKG interpreted by me showed normal sinus rhythm with a rate of [address] or T wave changes. Chest x-ray 1 view read by radiology showed no acute disease with evidence of prior sternotomy and mild cardiomegaly.Dr. Garth Madrigal was contacted for inpatient management due to prior admission. Labs Test 02/02/19 11:00 02/02/19 11:59 White Blood Count 6.5 K/UL (4.8-10.8) Red Blood Count 4.73 M/UL (4.70-6.10) Hemoglobin 13.2 G/DL (14.2-18.0) Hematocrit 40.1 % (42.0-52.0) Mean Corpuscular Volume 85 FL (80-99) Mean Corpuscular Hemoglobin 27.8 PG (27.0-31.0) Mean Corpuscular Hemoglobin Concent 32.8 G/DL (32.0-36.0) Red Cell Distribution Width 12.0 % (11.6-14.8) Platelet Count 199 K/UL (150-450) Mean Platelet Volume 6.1 FL (6.5-10.1) Neutrophils (%) (Auto) 69.2 % (45.0-75.0) Lymphocytes (%) (Auto) 22.4 % (20.0-45.0) Monocytes (%) (Auto) 6.8 % (1.0-10.0) Eosinophils (%) (Auto) 1.2 % (0.0-3.0) Basophils (%) (Auto) 0.4 % (0.0-2.0) D-Dimer 1.51 mg/L FEU (0.00-0.49) Sodium Level 137 MMOL/L (136-145) Potassium Level 4.2 MMOL/L (3.5-5.1) Chloride Level 101 MMOL/L (98-107) Carbon Dioxide Level 30 MMOL/L (21-32) Anion Gap 7 mmol/L (5-15) Blood Urea Nitrogen 21 mg/dL (7-18) Creatinine 1.3 MG/DL (0.55-1.30) Estimat Glomerular Filtration Rate 54.7 mL/min (>60) Glucose Level 119 MG/DL (74-106) Calcium Level 9.2 MG/DL (8.5-10.1) Total Bilirubin 0.5 MG/DL (0.2-1.0) Aspartate Amino Transf (AST/SGOT) 18 U/L (15-37) Alanine Aminotransferase (ALT/SGPT) 20 U/L (12-78) Alkaline Phosphatase 96 U/L (46-116) Total Creatine Kinase 84 U/L (26-308) Creatine Kinase MB 1.9 NG/ML (0.0-3.6) Creatine Kinase MB Relative Index 2.2 Troponin I 0.000 ng/mL (0.000-0.056) Pro-B-Type Natriuretic Peptide 169 pg/mL (0-125) Total Protein 7.5 G/DL (6.4-8.2) Albumin 3.6 G/DL (3.4-5.0) Globulin 3.9 g/dL Albumin/Globulin Ratio 0.9 (1.0-2.7) Lipase 564 U/L (73-393) Urine Opiates Screen Negative (NEGATIVE) Urine Barbiturates Screen Negative (NEGATIVE) Phencyclidine (PCP) Screen Negative (NEGATIVE) Urine Amphetamines Screen Negative (NEGATIVE) Urine Benzodiazepines Screen Negative (NEGATIVE) Urine Cocaine Screen Negative (NEGATIVE) Urine Marijuana (THC) Screen Negative (NEGATIVE) Last Vital Signs Date Time Temp Pulse Resp B/P (MAP) Pulse Ox O2 Delivery O2 Flow Rate FiO2 02/02/19 11:03 70 16 Room Air 02/02/19 11:03 98.8 134/57 95 Status: improved Disposition: HOME, SELF-CARE Condition: Stable Vic Collins MD Feb 02, 2019 11:16
[2019-02-02 11:24] LABS: ANION GAP 7 mmol/L (5-15); BLOOD UREA NITROGEN 21 mg/dL (7-18); CALCIUM 9.2 MG/DL (8.5-10.1); CARBON DIOXIDE 30 MMOL/L (21-32); CHLORIDE 101 MMOL/L (98-107); CREATININE 1.3 MG/DL (0.55-1.30); POTASSIUM 4.2 MMOL/L (3.5-5.1); SODIUM 137 MMOL/L (136-145)
[2019-02-02 11:36] LABS: ALANINE AMINOTRANSFERASE 20 U/L (12-78); ALBUMIN 3.6 G/DL (3.4-5.0); ALBUMIN/GLOBULIN RATIO 0.9 (1.0-2.7); ALKALINE PHOSPHATASE 96 U/L (46-116); ASPARTATE AMINO TRANSFERASE 18 U/L (15-37); BILIRUBIN,TOTAL 0.5 MG/DL (0.2-1.0); CKMB 1.9 NG/ML (0.0-3.6); CREATINE KINASE 84 U/L (26-308)
--- NOTE | 2019-02-02 11:41 | NUR ---
ED Nurse Note: x-ray at bedside.
--- NOTE | 2019-02-02 12:04 | NUR ---
ED Nurse Note: admitting doctor Dr. Madrigal at bedside.
--- NOTE | 2019-02-02 12:12 | Diagnostic Imaging Report ---
Indication: Chest pain Comparison: None A single view chest radiograph was obtained. Findings: No definite infiltrate or pulmonary vascular congestion identified. The heart is enlarged. The aorta is mildly enlarged consistent with atherosclerotic vascular disease. The bones are osteopenic. Impression: No acute disease
--- NOTE | 2019-02-02 12:34 | NUR ---
ED Nurse Note: Report given to ANYA Antonio @ tele. No bed available at this time.
[2019-02-02] MEDS ORDERED: Enoxaparin 80mg Inj SUBQ ONE (12:45)
--- NOTE | 2019-02-02 12:45 | NUR ---
ED Nurse Note: Called Telemetry unit and bed was ready. pt left unit with 1 RN and 1 cmm technician in stable condition.
--- NOTE | 2019-02-02 13:15 | NUR ---
NURSE NOTES: Verbal report from Laura/ ED . received pt from ER via jozef. Pt in stable condition V/s WNL BP 131/56, hr59, O2 100%, T98.2. Pt on hall monitor no signs of Cardiac or respiratory distress. Belonging checked with pt. Pt has $54, glasses, and android ph with him. Bed is locked and in lowest position. Call light within in reach. Showed pt around his room and how to use call light. No complaints of pain at this time. Medication was taken to pharmacy by ER.
--- NOTE | 2019-02-02 13:17 | Cardiac Electrophysiology PN ---
Subjective Subjective Cardiology consult dictated [id number] Objective Last 24 Hour Vital Signs Date Time Temp Pulse Resp B/P (MAP) Pulse Ox O2 Delivery O2 Flow Rate FiO2 02/02/19 11:03 70 16 Room Air 02/02/19 11:03 98.8 89 16 134/57 95 Room Air 02/02/19 10:57 98.8 70 16 134/57 (82) 95 Room Air Laboratory Tests Test 02/02/19 11:00 02/02/19 11:59 White Blood Count 6.5 K/UL (4.8-10.8) Red Blood Count 4.73 M/UL (4.70-6.10) Hemoglobin 13.2 G/DL (14.2-18.0) L Hematocrit 40.1 % (42.0-52.0) L Mean Corpuscular Volume 85 FL (80-99) Mean Corpuscular Hemoglobin 27.8 PG (27.0-31.0) Mean Corpuscular Hemoglobin Concent 32.8 G/DL (32.0-36.0) Red Cell Distribution Width 12.0 % (11.6-14.8) Platelet Count 199 K/UL (150-450) Mean Platelet Volume 6.1 FL (6.5-10.1) L Neutrophils (%) (Auto) 69.2 % (45.0-75.0) Lymphocytes (%) (Auto) 22.4 % (20.0-45.0) Monocytes (%) (Auto) 6.8 % (1.0-10.0) Eosinophils (%) (Auto) 1.2 % (0.0-3.0) Basophils (%) (Auto) 0.4 % (0.0-2.0) D-Dimer 1.51 mg/L FEU (0.00-0.49) H Sodium Level 137 MMOL/L (136-145) Potassium Level 4.2 MMOL/L (3.5-5.1) Chloride Level 101 MMOL/L (98-107) Carbon Dioxide Level 30 MMOL/L (21-32) Anion Gap 7 mmol/L (5-15) Blood Urea Nitrogen 21 mg/dL (7-18) H Creatinine 1.3 MG/DL (0.55-1.30) Estimat Glomerular Filtration Rate 54.7 mL/min (>60) Glucose Level 119 MG/DL (74-106) H Calcium Level 9.2 MG/DL (8.5-10.1) Total Bilirubin 0.5 MG/DL (0.2-1.0) Aspartate Amino Transf (AST/SGOT) 18 U/L (15-37) Alanine Aminotransferase (ALT/SGPT) 20 U/L (12-78) Alkaline Phosphatase 96 U/L (46-116) Total Creatine Kinase 84 U/L (26-308) Creatine Kinase MB 1.9 NG/ML (0.0-3.6) Creatine Kinase MB Relative Index 2.2 Troponin I 0.000 ng/mL (0.000-0.056) Pro-B-Type Natriuretic Peptide 169 pg/mL (0-125) H Total Protein 7.5 G/DL (6.4-8.2) Albumin 3.6 G/DL (3.4-5.0) Globulin 3.9 g/dL Albumin/Globulin Ratio 0.9 (1.0-2.7) L Lipase 564 U/L (73-393) H Urine Opiates Screen Negative (NEGATIVE) Urine Barbiturates Screen Negative (NEGATIVE) Phencyclidine (PCP) Screen Negative (NEGATIVE) Urine Amphetamines Screen Negative (NEGATIVE) Urine Benzodiazepines Screen Negative (NEGATIVE) Urine Cocaine Screen Negative (NEGATIVE) Urine Marijuana (THC) Screen Negative (NEGATIVE) Henrique Braun MD Feb 02, 2019 13:17
[2019-02-02] MEDS ORDERED: Lexiscan 0.4mg/5ml syringe IV PRN (13:30)
--- NOTE | 2019-02-02 15:00 | GI Initial Consult Note ---
History of Present Illness General Date patient seen: Feb 02, 2019 Time patient seen: 14:50 Reason for Hospitalization: Chest Pain Referring physician: BRANT HAZEL Reason for Consultation: PANCREATITIS Present Illness HPI Patient is a 68-year-old male presented after increased left-sided chest discomfort. This was intermittent in nature. Patient reports having a bypass surgery approximately 5 years ago. Patient presented after onset of chest discomfort during rest , nonradiating, moderate intensity, no associated exacerbating factors no change in leg swelling, no orthopnea denies being smoker hypertension GI consulted for reported chest pain and pancreatitis. Patient seen, awake alert and oriented x4 no apparent distress. Patient has complaint of severe left-sided chest pain which radiates to the right side. The patient stated his pain has been ongoing for the past few days. Denies any abdominal pain, denies any nausea vomiting constipation or diarrhea. He reports having similar type of pain approximately 5 years ago in which she required to have a cardiac bypass surgery. The abdomen is soft, appears bloated tympany in the upper quadrants. Bowel sounds positive for all 4 quadrants. States he had a colonoscopy prior with possible colonic polyps and is due for one this year. Pertinent lab results no leukocytosis, no anemia, lipase of 549. Home Meds Active Scripts Aripiprazole* (ABILIFY*) 5 Mg Tablet, 5 MG ORAL DAILY, #30 TAB 0 Refills Prov:REBEKA IBANEZ MD 06/19/13 Reported Medications Fluticasone Propionate* (FLUTICASONE PROPIONATE*) 16 Gm Mau[place].susp, 1 SPRAY NASAL DAILY, EA 02/02/19 Terazosin HCl (Terazosin HCl) 10 Mg Capsule, 10 MG PO QHS 12/01/18 Citalopram Hydrobromide* (CITALOPRAM HBR*) 10 Mg Tablet, 10 MG ORAL DAILY 09/01/18 Amlodipine Besylate* (AMLODIPINE BESYLATE*) 5 Mg Tablet, 5 MG ORAL DAILY 09/01/18 Fluticasone Propionate* (FLUTICASONE PROPIONATE*) 16 Gm Mauk.susp, 1 SPRAY NASAL QHS 06/09/18 Desmopressin (Nonrefrigerated) (Desmopressin 10 Mcg/0.1 ml Spr) 10 Mcg/0.1 Ml Mauk.pump, 10 MCG NS Q12H 06/09/18 Cetirizine Hcl* (ZYRTEC*) 10 Mg Tablet, 10 MG ORAL DAILY PRN for Itching 06/09/18 Atorvastatin Calcium* (LIPITOR*) 10 Mg Tablet, 10 MG ORAL BEDTIME 06/09/18 Mirtazapine* (MIRTAZAPINE*) 15 Mg Tablet, 15 MG ORAL BEDTIME, TAB 11/17/14 Aspirin* (ASPIRIN*) 81 Mg Tab.chew, 81 MG ORAL DAILY, TAB 11/04/13 Metoprolol Succinate* (METOPROLOL SUCCINATE*) 25 Mg Tab.er.24h, 25 MG ORAL DAILY , TAB 11/04/13 Levothyroxine Sodium* (LEVOTHYROXINE SODIUM*) 100 Mcg Tablet, 100 MCG ORAL DAILY , TAB Take in the morning on an empty stomach, at least 30 minutes before food. 07/17/13 Med list reviewed/reconciled: Yes Allergies: Coded Allergies: CODEINE (Verified Allergy, Unknown, 06/19/13) GRAPEFRUIT (Verified Allergy, Unknown, 05/10/17) Patient History Limited by: medical condition History Provided By: Patient, Medical Record PM Narrative Hx Cardiac Problems: Yes Hx Hypertension: Yes Hx Pacemaker: No Hx Asthma: No Hx COPD: No Hx Diabetes: Yes - DIABETIC INSIPIDUS Hx Cancer: No Hx Gastrointestinal Problems: No Hx Dialysis: No Hx Neurological Problems: No Hx Cerebrovascular Accident: No Hx Seizures: No Social History: Denies: smoking, alcohol use, drug use, other Review of Systems All Other Systems: negative except mentioned in HPI Physical Exam Vital Signs Date Time Temp Pulse Resp B/P (MAP) Pulse Ox O2 Delivery O2 Flow Rate FiO2 02/02/19 10:57 98.8 70 16 134/57 (82) 95 Room Air Sp02 EP Interpretation: reviewed, normal Labs Laboratory Tests Test 02/02/19 11:00 02/02/19 11:59 White Blood Count 6.5 K/UL (4.8-10.8) Red Blood Count 4.73 M/UL (4.70-6.10) Hemoglobin 13.2 G/DL (14.2-18.0) L Hematocrit 40.1 % (42.0-52.0) L Mean Corpuscular Volume 85 FL (80-99) Mean Corpuscular Hemoglobin 27.8 PG (27.0-31.0) Mean Corpuscular Hemoglobin Concent 32.8 G/DL (32.0-36.0) Red Cell Distribution Width 12.0 % (11.6-14.8) Platelet Count 199 K/UL (150-450) Mean Platelet Volume 6.1 FL (6.5-10.1) L Neutrophils (%) (Auto) 69.2 % (45.0-75.0) Lymphocytes (%) (Auto) 22.4 % (20.0-45.0) Monocytes (%) (Auto) 6.8 % (1.0-10.0) Eosinophils (%) (Auto) 1.2 % (0.0-3.0) Basophils (%) (Auto) 0.4 % (0.0-2.0) D-Dimer 1.51 mg/L FEU (0.00-0.49) H Sodium Level 137 MMOL/L (136-145) Potassium Level 4.2 MMOL/L (3.5-5.1) Chloride Level 101 MMOL/L (98-107) Carbon Dioxide Level 30 MMOL/L (21-32) Anion Gap 7 mmol/L (5-15) Blood Urea Nitrogen 21 mg/dL (7-18) H Creatinine 1.3 MG/DL (0.55-1.30) Estimat Glomerular Filtration Rate 54.7 mL/min (>60) Glucose Level 119 MG/DL (74-106) H Calcium Level 9.2 MG/DL (8.5-10.1) Total Bilirubin 0.5 MG/DL (0.2-1.0) Aspartate Amino Transf (AST/SGOT) 18 U/L (15-37) Alanine Aminotransferase (ALT/SGPT) 20 U/L (12-78) Alkaline Phosphatase 96 U/L (46-116) Total Creatine Kinase 84 U/L (26-308) Creatine Kinase MB 1.9 NG/ML (0.0-3.6) Creatine Kinase MB Relative Index 2.2 Troponin I 0.000 ng/mL (0.000-0.056) Pro-B-Type Natriuretic Peptide 169 pg/mL (0-125) H Total Protein 7.5 G/DL (6.4-8.2) Albumin 3.6 G/DL (3.4-5.0) Globulin 3.9 g/dL Albumin/Globulin Ratio 0.9 (1.0-2.7) L Lipase 564 U/L (73-393) H Urine Opiates Screen Negative (NEGATIVE) Urine Barbiturates Screen Negative (NEGATIVE) Phencyclidine (PCP) Screen Negative (NEGATIVE) Urine Amphetamines Screen Negative (NEGATIVE) Urine Benzodiazepines Screen Negative (NEGATIVE) Urine Cocaine Screen Negative (NEGATIVE) Urine Marijuana (THC) Screen Negative (NEGATIVE) General Appearance: well appearing, no apparent distress, alert Head: normocephalic EENT: PERRL/EOMI, normal ENT inspection Neck: supple Respiratory: normal breath sounds, no respiratory distress Cardiovascular: normal rate Gastrointestinal: normal inspection, non tender, soft, normal bowel sounds, non -distended, other Rectal: deferred Genitourinary: deferred Musculoskeletal: normal inspection, back normal Neurologic: normal inspection, alert, oriented x3, responsive Psychiatric: normal inspection, judgement/insight normal, memory normal Skin: normal inspection, normal color, no rash, warm/dry, palpation normal, well hydrated Lymphatic: normal inspection, no adenopathy Current Medications Current Medications Medications (Trade) Dose Ordered Sig/Tez Route PRN Reason Start Time Stop Time Status Last Admin Dose Admin Aripiprazole (Abilify) 5 mg DAILY ORAL 02/03/19 09:00 03/05/19 08:59 Citalopram Hydrobromide (celeXA) 10 mg DAILY ORAL 02/03/19 09:00 03/05/19 08:59 Mirtazapine (Remeron) 15 mg BEDTIME ORAL 02/02/19 21:00 03/04/19 20:59 Regadenoson (Lexiscan) 0.4 mg ONCE PRN IV CARDIOLOGY 02/02/19 13:30 02/04/19 13:29 GI: Plan Problems: (1) Pancreatitis (2) ACS (acute coronary syndrome) (3) Anemia (4) Diabetes Plan Follow-up cardiac recommendations We will consider endoscopy if patient has persistent pain and cardiac work-up negative Maintain n.p.o. plus IV fluids at this time given elevated lipase levels Obtain lipid panel Trend lipase levels next line ppi zofran prn pain mgmt outpatient colonoscopy Discussed with Dr. Herrera. Thank you for this patient referral, we will follow. The patient was seen and examined at bedside and all new and available data was reviewed in the patients chart. I agree with the above findings, impression and plan. (Patient seen earlier today. Signature stamp does not reflect patient encounter time.). - MD [facility] ALTAMIRANO Feb 02, 2019 15:00
[2019-02-02] MEDS ORDERED: Albuterol/Ipratropium 3ml neb HHN PRN (17:45)
[2019-02-02] MEDS ORDERED: Enalaprilat 1.25mg/ml Inj IV PRN (17:45)
[2019-02-02] MEDS ORDERED: dilTIAZem HCl 25mg/5ml Inj IV PRN (17:45)
[2019-02-02] MEDS ORDERED: Miralax 17gm pkt ORAL PRN (17:45)
[2019-02-02] MEDS ORDERED: Nitroglycerin Subl 0.4mg tab SL PRN (17:45)
--- NOTE | 2019-02-02 18:15 | History and Physical Report ---
DATE OF ADMISSION: 02/02/2019 CONSULTANTS: 1. Henrique Braun M.D. 2. Chelsea Quigley M.D. CHIEF COMPLAINT: Chest pain, ACS. BRIEF HISTORY: This is a 68-year-old male, who lives at home, presents with substernal chest pain, pressure like since this morning. No loss of consciousness. No nausea, vomiting, or diarrhea. No dizziness. Intermittent. No radiation. The patient came to [facility], diagnosed with chest pain, ACS, and some edema and being admitted to telemetry for further care. Currently, calm, in the ER [facility]. No complaint. REVIEW OF SYSTEMS: Slight chest pain. Slight short of breath. No nausea, vomiting, or diarrhea. PAST MEDICAL HISTORY: Hypertension, diabetes, insipidus, and possible psych history. PAST SURGICAL HISTORY: CABG. MEDICATIONS: Includes just aspirin for now. ALLERGIES: Codeine. SOCIAL HISTORY: No smoking. No alcohol. No intravenous drug abuse. FAMILY HISTORY: Noncontributory. PHYSICAL EXAMINATION: GENERAL: Calm in bed, oriented x3, in no acute distress. VITAL SIGNS: Show temperature is 98 degrees, pulse 70, respirations 16, and blood pressure 134/57. CARDIOVASCULAR: No murmurs. LUNGS: Distant and clear. ABDOMEN: Bowel sounds positive, nontender, and nondistended. EXTREMITIES: No cyanosis. No edema. Midline scar in chest well-healed. NEUROLOGIC: The patient moves all extremities, slightly weak. LABORATORY AND DIAGNOSTIC DATA: Labs, at this time, show hemoglobin and hematocrit are 13 and 40. BUN 21 and glucose 119. Troponin 0.00. BNP is 169. Lipase 564. D-dimer 1.5. Toxicology is negative. ASSESSMENT: 1. Chest pain. 2. ACS. 3. Edema. 4. Psych history. 5. Elevated lipase. 6. Hypertension. 7. Diabetes. 8. Insipidus. PLAN: 1. Resume home medications. 2. Blood pressure and pain control. 3. Dietary followup. 4. We will add Dr. Herrera for evaluation. We will continue to ____ GI. We will continue to follow the patient. 5. PT, OT, and dietary evaluation. 6. CBC and BMP in the morning. Garth Madrigal D.O. DR: MANNY JOB#: [id number] CC:
--- NOTE | 2019-02-02 19:30 | NUR ---
HAND-OFF: Report given to Milly. endorse pt NPO after midnight no coffee, chocolate or tea products. first part of the test was done earlier today. Second and tird part of Lexiscan will be done tomorrow.
--- NOTE | 2019-02-02 19:55 | NUR ---
NURSE NOTES: Received pt from ANYA Antonio. Pt awake, alert, and talkative. Bed in lowest position. Call light within reach. Will continue to monitor.
[2019-02-02 20:00] VITALS: BP 127/63
[2019-02-02] MEDS: Heparin 5000 units/ml inj SUBQ SCH (21:00)
--- NOTE | 2019-02-02 21:15 | Consultation ---
DATE OF CONSULTATION: 02/02/2019 CARDIOLOGY CONSULTATION CONSULTING PHYSICIAN: Henrique Braun M.D. REFERRING PHYSICIAN: Garth Madrigal D.O. REASON FOR CONSULTATION: Chest pain in the patient with history of coronary artery bypass graft. HISTORY OF PRESENT ILLNESS: The patient is a 68-year-old gentleman with history of hypertension and coronary artery disease with history of coronary artery bypass graft 5 years ago, as well as diabetes insipidus and psychiatric disorder, who presented to the emergency room complaining of chest pain. The pain was left-sided and pressure-like. 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 The pain was nonradiating and was moderate. The patient also has noticed increased swelling in his legs. Cardiology consultation was obtained for further evaluation and management. REVIEW OF SYSTEMS: Review of systems was negative other than what is mentioned in the history of present illness. PAST MEDICAL HISTORY: As mentioned above. MEDICATIONS: Per reconciliation. ALLERGIES: He is allergic to codeine and grapefruit. PHYSICAL EXAMINATION: VITAL SIGNS: Show blood pressure of 134/57, pulse 70, respirations 18, and temperature 98.8. HEAD AND NECK: Showed no JVD. LUNGS: Clear. CARDIOVASCULAR: Shows regular S1 and S2 with no gallop or murmur. ABDOMEN: Soft and nontender. EXTREMITIES: Have no pitting edema. LABORATORY AND DIAGNOSTIC DATA: His EKG showed sinus rhythm with a first-degree AV block and no acute ST-T wave abnormalities. His labs show white count of 6.5, hemoglobin 13, hematocrit of 40, and platelet count is 199,000. Sodium is 137, potassium 4.2, BUN of 21, creatinine 1.3, and glucose of 119. The first troponin is negative. ASSESSMENT AND PLAN: 1. Atypical chest pain in the patient with history of coronary artery bypass graft. EKG is nonischemic. The first troponin is negative. To completely rule out PA protocol, I will repeat the echocardiogram and EKG. If all negative, we will proceed with stress test for further evaluation and management. In the meantime, resume the patient's aspirin 81 mg daily and Lipitor 10 mg daily and Toprol-XL 25 mg daily. 2. Hypertension. Continue Toprol-XL 25 and amlodipine 5 mg daily. 3. Benign prostatic hypertrophy. On terazosin. 4. Hypothyroidism. On Synthroid. 5. Diabetes insipidus. The patient is on desmopressin 10 mcg every 12 hours. 6. Depression. On citalopram and Abilify. Thank you very much, Dr. Madrigal, for allowing me to participate in the care of this patient. Please do not hesitate to contact me for any questions regarding my evaluation. Henrique Braun M.D. DR: JOSE E JOB#: [id number] CC:
--- NOTE | 2019-02-02 22:31 | NUR ---
NURSE NOTES: Called and left a message with Dr. Quigley regarding pts request to continue home meds. Awaiting call back.
[2019-02-02] MEDS ORDERED: Desmopressin (DDAVP) Inj IV SCH (22:45)
[2019-02-02] MEDS: Flonase Nasal Inhaler 16gm NASAL SCH (23:15)
[2019-02-02] MEDS: Desmopressin Nasal 5ml NASAL SCH (23:30)
--- NOTE | 2019-02-03 02:00 | Consultation ---
DATE OF CONSULTATION: HISTORY OF PRESENT ILLNESS: The patient is 68-year-old male patient who is admitted to the hospital secondary to chest pain, but he also has overlying history of bipolar 2 and so because of that recently his mood lability has worsened secondary to the stress of his medical illness. That is why his attending has requested daily psychiatric consultation for this patient to get him restarted on his psychotropic meds. The patient told me "I have bipolar and mood swings and need to be back on psychotropic medications." That was the chief complaint on interview today. chief complaint, that is what it was on interview today. MEDICAL HISTORY: He is status post cardiac bypass surgery about 5 years prior. No insidious chest pain. It was moderate intensity, nonradiating. The patient was concerned and that is why he went to the ER for that reason. As far as his medical history, he has a history of possible hypertension. ALLERGIES: He has allergies to codeine. As far as this patient's psychotropic medications on admission, he is on Abilify 5 mg a day, Celexa 10 mg a day, Remeron 15 mg p.o. q.h.s. SOCIAL HISTORY: He is denying use of any drug or alcohol use at this time. PAIN ASSESSMENT: 09/07 pain. FAMILY PSYCH HISTORY: Denies. SOCIAL HISTORY: He lives in a private residence. Financially supported by [employer] and Medicare. PSYCHIATRIC HISTORY: History of bipolar disease, [facility]. STRENGTHS: He is motivated to get better. He is healthy. WEAKNESSES: He is impulsive and no support system. MENTAL STATUS EXAMINATION: This is a 68-year-old male. Appearance is disheveled. Attitude, irritable and agitated, affect restricted. Mood depressed and anxious. Motor activity, psychomotor agitation. Attention span is poor because he cannot do serial 7's or spell world backwards. Intellect is good. He knows the last four presidents and current events. Appearance is fair. Attitude is calm. Affect, guarded and restricted. Speech is normal volume and tone. Insight is good. He knows he is in the hospital. Judgment is good. He is able to make medical decisions for himself. He denies suicidal or homicidal thoughts. Short-term memory 3/3 word recall after 5 minutes delay with good short-term memory. Long-term memory is intact based on his knowledge of long-term events in his life such as the high school that he went to. DIAGNOSIS: Bipolar 2. PLAN: I am going to start this patient on Abilify 5 mg a day, Celexa 10 mg daily, also Remeron 15 mg at bedtime. Twenty minutes of cognitive behavioral therapy to help him identify his automatic negative thoughts and convert those negative thoughts to more positive thoughts to reduce depression, anxiety, and mood lability. . Chart reviewed and discussed with staff. Seen and assessed at bedside. Chapincito Treadwell M.D. DR: Aleenag JOB#: [id number] CC:
[2019-02-03 03:07] LABS: BASOPHILS % (AUTO) 1.1 % (0.0-2.0); EOSINOPHILS % (AUTO) 1.7 % (0.0-3.0); HEMATOCRIT 38.6 % (42.0-52.0); HEMOGLOBIN 12.9 G/DL (14.2-18.0); MEAN CORPUSCULAR VOLUME 83 FL (80-99); MONOCYTES % (AUTO) 7.5 % (1.0-10.0); NEUTROPHILS % (AUTO) 61.7 % (45.0-75.0); PLATELET COUNT 202 K/UL (150-450); RED BLOOD COUNT 4.64 M/UL (4.70-6.10); RED CELL DISTRIBUTION WIDTH 12.6 % (11.6-14.8)
[2019-02-03 03:22] LABS: ANION GAP 3 mmol/L (5-15); BLOOD UREA NITROGEN 17 mg/dL (7-18); CALCIUM 9.2 MG/DL (8.5-10.1); CARBON DIOXIDE 31 MMOL/L (21-32); CHLORIDE 103 MMOL/L (98-107); CHOLESTEROL 111 MG/DL (< 200); CREATININE 1.1 MG/DL (0.55-1.30); HDL CHOLESTEROL 46 MG/DL (40-60); POTASSIUM 4.1 MMOL/L (3.5-5.1); SODIUM 137 MMOL/L (136-145); TRIGLYCERIDES 71 MG/DL (30-150)
[2019-02-03 04:00] VITALS: BP 123/51
--- NOTE | 2019-02-03 05:45 | Consultation ---
DATE OF CONSULTATION: 02/02/2019 PSYCHOTHERAPY CONSULTATION PROGRESS NOTE TREATING ATTENDING PHYSICIAN: Garth Madirgal D.O. HISTORY OF PRESENT ILLNESS: This is a 68-year-old male patient who lives independently in [place], [place]. The patient was brought into the hospital for chest pain, acute coronary syndrome. The patient has a history of depression and anxiety, and for these reasons, he was referred for psychotherapeutic services. The patient states that he attends an outpatient treatment where he receives medications for his depression. He denies any suicidal or homicidal thoughts of ideation. Denies any auditory or visual hallucinations. He states that his medications have been working well for him. He does have episodes of anxiety and restlessness; however, he states he takes medication for that as well. He states often he has episodes of insomnia and difficulty with sleeping; however, again his medications he states has been helpful to him. At this time, he remains very cooperative, stable, and has no significant triggers. PAST MEDICAL HISTORY: Includes history of hypertension, diabetes. ALLERGIES: The patient has allergy to codeine. SUBSTANCE ABUSE HISTORY: There is no indication of alcohol use, illicit substance use, or history of smoking cigarettes. PSYCHIATRIC HISTORY: The patient states he has a history of depression and anxiety and has been treated with psychotropic medications in the past. SOCIAL HISTORY: The patient is a single 68-year-old male, financially sustained through [facility]. He lives independently. MENTAL STATUS EXAMINATION: The patient is alert and oriented to person, place, time and situation. Mood is depressed. Affect is blunted. Thought process, disorganized. Thought content, linear. Fair attention and concentration. Fair insight, judgment, and impulse control. I ASSESSED THIS PATIENT AND PROVIDED THE PATIENT WITH: 1. Reality orientation, which focuses on improving cognitive function of the patient who is confused and disorganized. Oriented to person, place, time, and situation. 2. Provided the patient with supportive psychotherapy, which would provide the patient means to positive coping skills addressing the patient's feelings of helplessness, hopelessness, encouraging the patient to participate in treatment milieu. medication management. This clinician has reviewed the patient's chart. Discussed treatment with treatment team. 3. Major depressive disorder, moderate, recurrent, without psychotic features and generalized anxiety disorder. This clinician has reviewed the patient's chart. Discussed treatment with treatment team. Plan is to maintain medication compliance, assist with positive coping skills, stabilizing the thoughts and behavior. Psychotherapy provided to this patient, 50 minutes. This clinician has reviewed the patient's chart. Discussed treatment with treatment team. Faizan Morrow PsyD. DR: Catia JOB#: [id number] CC:
--- NOTE | 2019-02-03 07:31 | NUR ---
NURSE NOTES: Report received from ANYA Atkins. Patient AOx4. In RA. Denies any pain or SOB. R AC 20g IV patent, SL. NPO for stress test. Bed on lowest position, side rails upx2, brakes engaged. Call light within easy reach.
[2019-02-03 08:00] VITALS: BP 111/57
[2019-02-03] MEDS ORDERED: Flonase Nasal Inhaler 16gm NASAL SCH (09:00)
[2019-02-03] MEDS: Heparin 5000 units/ml inj SUBQ SCH ×2 (09:00→21:50)
[2019-02-03] MEDS: Metoprolol Succinate XL 25mg tab ORAL SCH (09:08)
[2019-02-03] MEDS: Citalopram Hydrobromide 10mg Tab ORAL SCH (09:08)
[2019-02-03] MEDS: Aspirin Baby 81mg ORAL SCH (09:08)
[2019-02-03] MEDS: Desmopressin Nasal 5ml NASAL SCH ×2 (09:08→18:04)
[2019-02-03] MEDS: Flonase Nasal Inhaler 16gm NASAL SCH (09:09)
--- NOTE | 2019-02-03 10:43 | GI Progress Note ---
Assessment/Plan Problems: (1) ACS (acute coronary syndrome) ICD Codes: I24.9 - Acute ischemic heart disease, unspecified SNOMED: 292974915 (2) Diabetes ICD Codes: E11.9 - Type 2 diabetes mellitus without complications SNOMED: 19408135 (3) Anemia ICD Codes: D64.9 - Anemia, unspecified SNOMED: 497024967 (4) Pancreatitis ICD Codes: K85.90 - Acute pancreatitis without necrosis or infection, unspecified SNOMED: 65752601 Status: unchanged Status Narrative Discussed with Dr. Herrera. Assessment/Plan Follow-up cardiac recommendations We will consider endoscopy if patient has persistent pain and cardiac work-up negative pancreatitis resolved, lipid panel r/o hyperglycemia, negative PPI zofran prn pain mgmt outpatient colonoscopy The patient was seen and examined at bedside and all new and available data was reviewed in the patients chart. I agree with the above findings, impression and plan. (Patient seen earlier today. Signature stamp does not reflect patient encounter time.). - Fan Herrera MD Subjective Gastrointestinal/Abdominal: Reports: no symptoms Objective Last 24 Hour Vital Signs Date Time Temp Pulse Resp B/P (MAP) Pulse Ox O2 Delivery O2 Flow Rate FiO2 02/03/19 09:08 61 111/57 02/03/19 09:08 61 111/57 02/03/19 08:00 97.9 61 18 111/57 (75) 98 02/03/19 04:00 97.8 56 18 123/51 (75) 98 02/03/19 04:00 55 02/03/19 00:00 58 02/02/19 21:00 Room Air 02/02/19 20:22 88 20 97 Room Air 21 02/02/19 20:00 58 02/02/19 20:00 97.9 59 19 127/63 (84) 98 02/02/19 16:59 Room Air 02/02/19 16:00 57 02/02/19 12:45 97.9 89 16 140/58 98 Room Air 02/02/19 11:03 70 16 Room Air 02/02/19 11:03 98.8 89 16 134/57 95 Room Air 02/02/19 10:57 98.8 70 16 134/57 (82) 95 Room Air Intake and Output 02/02/19 02/03/19 19:00 07:00 Intake Total 0 ml Output Total 0 ml Balance 0 ml Intake Oral 0 ml Output Urine Total 0 ml # Voids 1 4 # Bowel Movements 1 Laboratory Tests Test 02/02/19 11:00 02/02/19 11:59 02/02/19 18:42 02/03/19 02:58 White Blood Count 6.5 K/UL (4.8-10.8) 6.0 K/UL (4.8-10.8) Red Blood Count 4.73 M/UL (4.70-6.10) 4.64 M/UL (4.70-6.10) L Hemoglobin 13.2 G/DL (14.2-18.0) L 12.9 G/DL (14.2-18.0) L Hematocrit 40.1 % (42.0-52.0) L 38.6 % (42.0-52.0) L Mean Corpuscular Volume 85 FL (80-99) 83 FL (80-99) Mean Corpuscular Hemoglobin 27.8 PG (27.0-31.0) 27.7 PG (27.0-31.0) Mean Corpuscular Hemoglobin Concent 32.8 G/DL (32.0-36.0) 33.3 G/DL (32.0-36.0) Red Cell Distribution Width 12.0 % (11.6-14.8) 12.6 % (11.6-14.8) Platelet Count 199 K/UL (150-450) 202 K/UL (150-450) Mean Platelet Volume 6.1 FL (6.5-10.1) L 6.2 FL (6.5-10.1) L Neutrophils (%) (Auto) 69.2 % (45.0-75.0) 61.7 % (45.0-75.0) Lymphocytes (%) (Auto) 22.4 % (20.0-45.0) 28.0 % (20.0-45.0) Monocytes (%) (Auto) 6.8 % (1.0-10.0) 7.5 % (1.0-10.0) Eosinophils (%) (Auto) 1.2 % (0.0-3.0) 1.7 % (0.0-3.0) Basophils (%) (Auto) 0.4 % (0.0-2.0) 1.1 % (0.0-2.0) D-Dimer 1.51 mg/L FEU (0.00-0.49) H Sodium Level 137 MMOL/L (136-145) 137 MMOL/L (136-145) Potassium Level 4.2 MMOL/L (3.5-5.1) 4.1 MMOL/L (3.5-5.1) Chloride Level 101 MMOL/L (98-107) 103 MMOL/L (98-107) Carbon Dioxide Level 30 MMOL/L (21-32) 31 MMOL/L (21-32) Anion Gap 7 mmol/L (5-15) 3 mmol/L (5-15) L Blood Urea Nitrogen 21 mg/dL (7-18) H 17 mg/dL (7-18) Creatinine 1.3 MG/DL (0.55-1.30) 1.1 MG/DL (0.55-1.30) Estimat Glomerular Filtration Rate 54.7 mL/min (>60) > 60 mL/min (>60) Glucose Level 119 MG/DL (74-106) H 102 MG/DL (74-106) Calcium Level 9.2 MG/DL (8.5-10.1) 9.2 MG/DL (8.5-10.1) Total Bilirubin 0.5 MG/DL (0.2-1.0) Aspartate Amino Transf (AST/SGOT) 18 U/L (15-37) Alanine Aminotransferase (ALT/SGPT) 20 U/L (12-78) Alkaline Phosphatase 96 U/L (46-116) Total Creatine Kinase 84 U/L (26-308) Creatine Kinase MB 1.9 NG/ML (0.0-3.6) Creatine Kinase MB Relative Index 2.2 Troponin I 0.000 ng/mL (0.000-0.056) 0.023 ng/mL (0.000-0.056) 0.016 ng/mL (0.000-0.056) Pro-B-Type Natriuretic Peptide 169 pg/mL (0-125) H Total Protein 7.5 G/DL (6.4-8.2) Albumin 3.6 G/DL (3.4-5.0) Globulin 3.9 g/dL Albumin/Globulin Ratio 0.9 (1.0-2.7) L Lipase 564 U/L (73-393) H 120 U/L (73-393) Urine Opiates Screen Negative (NEGATIVE) Urine Barbiturates Screen Negative (NEGATIVE) Phencyclidine (PCP) Screen Negative (NEGATIVE) Urine Amphetamines Screen Negative (NEGATIVE) Urine Benzodiazepines Screen Negative (NEGATIVE) Urine Cocaine Screen Negative (NEGATIVE) Urine Marijuana (THC) Screen Negative (NEGATIVE) Prothrombin Time 10.5 SEC (9.30-11.50) Prothromb Time International Ratio 1.0 (0.9-1.1) Activated Partial Thromboplast Time 30 SEC (23-33) C-Reactive Protein, Quantitative 1.7 mg/dL (0.00-0.90) H Triglycerides Level 71 MG/DL (30-150) Cholesterol Level 111 MG/DL (< 200) LDL Cholesterol 52 mg/dL (<100) HDL Cholesterol 46 MG/DL (40-60) Cholesterol/HDL Ratio 2.4 (3.3-4.4) L Thyroid Stimulating Hormone (TSH) 3.020 uiU/mL (0.358-3.740) Free Thyroxine 1.22 NG/DL (0.76-1.46) Height (Feet): 5 Height (Inches): 3.00 Weight (Pounds): 189 General Appearance: WD/WN, no apparent distress, alert Cardiovascular: normal rate Respiratory/Chest: normal breath sounds, no respiratory distress Abdominal Exam: normal bowel sounds, non tender, soft Extremities: normal range of motion, non-tender Tom Ochoa NP Feb 03, 2019 10:43
--- NOTE | 2019-02-03 11:51 | Cardiac Electrophysiology PN ---
Assessment/Plan Assessment/Plan 1. Atypical chest pain in the patient with history of coronary artery bypass graft. EKG is nonischemic. Ruled out for ID . Had stress test and results pending. On aspirin 81 mg daily,Lipitor 10 mg daily and Toprol-XL 25 mg daily. 2. Hypertension. Continue Toprol-XL 25 and amlodipine 5 mg daily. 3. Benign prostatic hypertrophy. On terazosin. 4. Hypothyroidism. On Synthroid. 5. Diabetes insipidus. The patient is on desmopressin 10 mcg every 12 hours. 6. Depression. On citalopram and Abilify. PAULO RN DC if stress test nonischemic Subjective Subjective Had nuclear stress test today. Objective Last 24 Hour Vital Signs Date Time Temp Pulse Resp B/P (MAP) Pulse Ox O2 Delivery O2 Flow Rate FiO2 02/03/19 09:08 61 111/57 02/03/19 09:08 61 111/57 02/03/19 08:00 66 02/03/19 08:00 97.9 61 18 111/57 (75) 98 02/03/19 04:00 97.8 56 18 123/51 (75) 98 02/03/19 04:00 55 02/03/19 00:00 58 02/02/19 21:00 Room Air 02/02/19 20:22 88 20 97 Room Air 21 02/02/19 20:00 58 02/02/19 20:00 97.9 59 19 127/63 (84) 98 02/02/19 16:59 Room Air 02/02/19 16:00 57 02/02/19 12:45 97.9 89 16 140/58 98 Room Air Intake and Output 02/02/19 02/03/19 19:00 07:00 Intake Total 0 ml Output Total 0 ml Balance 0 ml Intake Oral 0 ml Output Urine Total 0 ml # Voids 1 4 # Bowel Movements 1 Laboratory Tests Test 02/02/19 11:59 02/02/19 18:42 02/03/19 02:58 Urine Opiates Screen Negative (NEGATIVE) Urine Barbiturates Screen Negative (NEGATIVE) Phencyclidine (PCP) Screen Negative (NEGATIVE) Urine Amphetamines Screen Negative (NEGATIVE) Urine Benzodiazepines Screen Negative (NEGATIVE) Urine Cocaine Screen Negative (NEGATIVE) Urine Marijuana (THC) Screen Negative (NEGATIVE) Troponin I 0.023 ng/mL (0.000-0.056) 0.016 ng/mL (0.000-0.056) White Blood Count 6.0 K/UL (4.8-10.8) Red Blood Count 4.64 M/UL (4.70-6.10) L Hemoglobin 12.9 G/DL (14.2-18.0) L Hematocrit 38.6 % (42.0-52.0) L Mean Corpuscular Volume 83 FL (80-99) Mean Corpuscular Hemoglobin 27.7 PG (27.0-31.0) Mean Corpuscular Hemoglobin Concent 33.3 G/DL (32.0-36.0) Red Cell Distribution Width 12.6 % (11.6-14.8) Platelet Count 202 K/UL (150-450) Mean Platelet Volume 6.2 FL (6.5-10.1) L Neutrophils (%) (Auto) 61.7 % (45.0-75.0) Lymphocytes (%) (Auto) 28.0 % (20.0-45.0) Monocytes (%) (Auto) 7.5 % (1.0-10.0) Eosinophils (%) (Auto) 1.7 % (0.0-3.0) Basophils (%) (Auto) 1.1 % (0.0-2.0) Prothrombin Time 10.5 SEC (9.30-11.50) Prothromb Time International Ratio 1.0 (0.9-1.1) Activated Partial Thromboplast Time 30 SEC (23-33) Sodium Level 137 MMOL/L (136-145) Potassium Level 4.1 MMOL/L (3.5-5.1) Chloride Level 103 MMOL/L (98-107) Carbon Dioxide Level 31 MMOL/L (21-32) Anion Gap 3 mmol/L (5-15) L Blood Urea Nitrogen 17 mg/dL (7-18) Creatinine 1.1 MG/DL (0.55-1.30) Estimat Glomerular Filtration Rate > 60 mL/min (>60) Glucose Level 102 MG/DL (74-106) Calcium Level 9.2 MG/DL (8.5-10.1) C-Reactive Protein, Quantitative 1.7 mg/dL (0.00-0.90) H Triglycerides Level 71 MG/DL (30-150) Cholesterol Level 111 MG/DL (< 200) LDL Cholesterol 52 mg/dL (<100) HDL Cholesterol 46 MG/DL (40-60) Cholesterol/HDL Ratio 2.4 (3.3-4.4) L Lipase 120 U/L (73-393) Thyroid Stimulating Hormone (TSH) 3.020 uiU/mL (0.358-3.740) Free Thyroxine 1.22 NG/DL (0.76-1.46) Objective HEAD AND NECK: Showed no JVD. LUNGS: Clear. CARDIOVASCULAR: Shows regular S1 and S2 with no gallop or murmur. ABDOMEN: Soft and nontender. EXTREMITIES: Have no pitting edema. Henrique Braun MD Feb 03, 2019 11:51
[2019-02-03 12:00] VITALS: BP 101/58
--- NOTE | 2019-02-03 12:07 | NUR ---
P.T NOTE P.T EVALUATION COMPLETED. PATIENT IS ALERT, 0 X 4 AND COOPERATIVE. PATIENT DENIED C/O PAIN PAIN. PATIENT IS CURRENTLY BASELINE INDEPENDENT THEREFORE SKILLED P.T SERVICE IS NOT NEEDED AT THIS TIME. ENCOURAGED PATIENT OOB ACTIVITIES VS BEDREST DURING STAY UNLESS OTHERWISE ORDERED. D/C P.T SERVICES. THANK YOU FOR THIS REFERRAL.
--- NOTE | 2019-02-03 13:06 | General Progress Note ---
Assessment/Plan Problem List: (1) Edema ICD Codes: R60.9 - Edema, unspecified SNOMED: 083270905, 972396865 (2) Chest pain ICD Codes: R07.9 - Chest pain, unspecified SNOMED: 84512046 (3) HTN (hypertension) ICD Codes: I10 - Essential (primary) hypertension SNOMED: 03501860 (4) Diabetes ICD Codes: E11.9 - Type 2 diabetes mellitus without complications SNOMED: 65639835 (5) ACS (acute coronary syndrome) ICD Codes: I24.9 - Acute ischemic heart disease, unspecified SNOMED: 527880487 (6) Pancreatitis ICD Codes: K85.90 - Acute pancreatitis without necrosis or infection, unspecified SNOMED: 23337045 Status: unchanged Assessment/Plan: pain control abx cardio f/u cbc bmp am Subjective Constitutional: Reports: weakness Allergies: Coded Allergies: CODEINE (Verified Allergy, Unknown, 06/19/13) GRAPEFRUIT (Verified Allergy, Unknown, 05/10/17) All Systems: reviewed and negative except above Subjective sl cp Objective Last 24 Hour Vital Signs Date Time Temp Pulse Resp B/P (MAP) Pulse Ox O2 Delivery O2 Flow Rate FiO2 02/03/19 12:00 98.1 66 18 101/58 (72) 98 02/03/19 12:00 67 02/03/19 09:08 61 111/57 02/03/19 09:08 61 111/57 02/03/19 09:00 Room Air 02/03/19 08:00 66 02/03/19 08:00 97.9 61 18 111/57 (75) 98 02/03/19 04:00 97.8 56 18 123/51 (75) 98 02/03/19 04:00 55 02/03/19 00:00 58 02/02/19 21:00 Room Air 02/02/19 20:22 88 20 97 Room Air 21 02/02/19 20:00 58 02/02/19 20:00 97.9 59 19 127/63 (84) 98 02/02/19 16:59 Room Air 02/02/19 16:00 57 Intake and Output 02/02/19 02/03/19 18:59 06:59 Intake Total 0 ml Output Total 0 ml Balance 0 ml Intake Oral 0 ml Output Urine Total 0 ml # Voids 1 4 # Bowel Movements 1 Laboratory Tests 02/02/19 18:42: Troponin I 0.023 02/03/19 02:58: Troponin I 0.016, White Blood Count 6.0, Red Blood Count 4.64L, Hemoglobin 12.9L , Hematocrit 38.6L, Mean Corpuscular Volume 83, Mean Corpuscular Hemoglobin 27.7 , Mean Corpuscular Hemoglobin Concent 33.3, Red Cell Distribution Width 12.6, Platelet Count 202, Mean Platelet Volume 6.2L, Neutrophils (%) (Auto) 61.7, Lymphocytes (%) (Auto) 28.0, Monocytes (%) (Auto) 7.5, Eosinophils (%) (Auto) 1.7, Basophils (%) (Auto) 1.1, Prothrombin Time 10.5, Prothromb Time International Ratio 1.0, Activated Partial Thromboplast Time 30, Sodium Level 137, Potassium Level 4.1, Chloride Level 103, Carbon Dioxide Level 31, Anion Gap 3L, Blood Urea Nitrogen 17, Creatinine 1.1, Estimat Glomerular Filtration Rate > 60, Glucose Level 102, Calcium Level 9.2, C-Reactive Protein, Quantitative 1.7H, Triglycerides Level 71, Cholesterol Level 111, LDL Cholesterol 52, HDL Cholesterol 46, Cholesterol/HDL Ratio 2.4L, Lipase 120, Thyroid Stimulating Hormone (TSH) 3.020, Free Thyroxine 1.22 Height (Feet): 5 Height (Inches): 3.00 Weight (Pounds): 189 General Appearance: lethargic EENT: normal ENT inspection Neck: normal alignment Cardiovascular: normal peripheral pulses, normal rate, regular rhythm Respiratory/Chest: chest wall non-tender, lungs clear, normal breath sounds Abdomen: normal bowel sounds, non tender, soft Extremities: normal inspection Edema: no edema noted Arm (L), no edema noted Arm (R), no edema noted Leg (L), no edema noted Leg (R), no edema noted Pedal (L), no edema noted Pedal (R), no edema noted Generalized Neurologic: responsive, motor weakness Skin: normal pigmentation, warm/dry Garth Madrigal DO Feb 03, 2019 13:05
--- NOTE | 2019-02-03 14:13 | Diagnostic Imaging Report ---
Indication: chest pain Technique: The study was conducted under the supervision of a industrial twisting machine operator. lexiscan (regadenoson) infusion over 10 seconds followed by intravenous administration of 31.8 mCi of technetium 99m Myoview was performed. Three plane SPECT imaging of the heart was then performed. A resting study was performed as part of the one-day protocol with 11 mCi of technetium 99m myoview injected intravenously at that time. Three plane SPECT imaging of the heart was obtained. Comparison: None Clinical data: 1. Clinical response: Non ischemic 2. Electrocardiographic response: Non ischemic Findings: The myocardial perfusion scan demonstrates no fixed or reversible perfusion defects. LVEF estimated at 84%, which is overestimated. IMPRESSION: Negative myocardial perfusion scan
--- NOTE | 2019-02-03 14:58 | Consultation ---
History of Present Illness General Date patient seen: Feb 03, 2019 Chief Complaint: Chest Pain Referring physician: BRANT HAZEL Reason for Consultation: PANCREATITIS Present Illness HPI 68-year-old male with hx of CABG, CAD, DM, HTN presented to Er with CC of left-sided chest discomfort. Patient presented after onset of chest discomfort during rest , nonradiating, moderate intensity, no associated exacerbating factors. Because of his previous CABG and CAD, pt is at high risk for acute LA. Therefore he is admitted to telemetry for further management. Allergies: Coded Allergies: CODEINE (Verified Allergy, Unknown, 06/19/13) GRAPEFRUIT (Verified Allergy, Unknown, 05/10/17) Medication History Scheduled Amlodipine Besylate* (Amlodipine Besylate*), 5 MG ORAL DAILY, (Reported) Aripiprazole* (Abilify*), 5 MG ORAL DAILY Aspirin* (Aspirin*), 81 MG ORAL DAILY, (Reported) Atorvastatin Calcium* (Lipitor*), 10 MG ORAL BEDTIME, (Reported) Citalopram Hydrobromide* (Citalopram Hbr*), 10 MG ORAL DAILY, (Reported) Desmopressin (Nonrefrigerated) (Desmopressin 10 Mcg/0.1 ml Spr), 10 MCG NS Q12H, (Reported) Fluticasone Propionate* (Fluticasone Propionate*), 1 SPRAY NASAL QHS, (Reported) Fluticasone Propionate* (Fluticasone Propionate*), 1 SPRAY NASAL DAILY, ( Reported) Levothyroxine Sodium* (Levothyroxine Sodium*), 100 MCG ORAL DAILY, (Reported) Metoprolol Succinate* (Metoprolol Succinate*), 25 MG ORAL DAILY, (Reported) Mirtazapine* (Mirtazapine*), 15 MG ORAL BEDTIME, (Reported) Terazosin HCl (Terazosin HCl), 10 MG PO QHS, (Reported) Scheduled PRN Cetirizine Hcl* (Zyrtec*), 10 MG ORAL DAILY PRN for Itching, (Reported) Patient History Healthcare decision maker Resuscitation status Advanced Directive on File Past Medical/Surgical History Past Medical/Surgical History: (1) Hx of CABG (2) Diabetes (3) Pancreatitis (4) HTN (hypertension) Review of Systems All Other Systems: negative except mentioned in HPI Physical Exam General Appearance: WD/WN Lines, tubes and drains: peripheral HEENT: normocephalic, atraumatic Neck: non-tender, normal alignment Respiratory/Chest: chest wall non-tender, lungs clear Breasts: no masses Cardiovascular/Chest: normal peripheral pulses Abdomen: normal bowel sounds Last 24 Hour Vital Signs Date Time Temp Pulse Resp B/P (MAP) Pulse Ox O2 Delivery O2 Flow Rate FiO2 02/03/19 13:50 83 20 97 Room Air 21 02/03/19 12:00 98.1 66 18 101/58 (72) 98 02/03/19 12:00 67 02/03/19 09:08 61 111/57 02/03/19 09:08 61 111/57 02/03/19 09:00 Room Air 02/03/19 08:00 66 02/03/19 08:00 97.9 61 18 111/57 (75) 98 02/03/19 04:00 97.8 56 18 123/51 (75) 98 02/03/19 04:00 55 02/03/19 00:00 58 02/02/19 21:00 Room Air 02/02/19 20:22 88 20 97 Room Air 21 02/02/19 20:00 58 02/02/19 20:00 97.9 59 19 127/63 (84) 98 02/02/19 16:59 Room Air 02/02/19 16:00 57 Intake and Output 02/02/19 02/03/19 18:59 06:59 Intake Total 0 ml Output Total 0 ml Balance 0 ml Intake Oral 0 ml Output Urine Total 0 ml # Voids 1 4 # Bowel Movements 1 Laboratory Tests Test 02/02/19 18:42 02/03/19 02:58 Troponin I 0.023 ng/mL (0.000-0.056) 0.016 ng/mL (0.000-0.056) White Blood Count 6.0 K/UL (4.8-10.8) Red Blood Count 4.64 M/UL (4.70-6.10) L Hemoglobin 12.9 G/DL (14.2-18.0) L Hematocrit 38.6 % (42.0-52.0) L Mean Corpuscular Volume 83 FL (80-99) Mean Corpuscular Hemoglobin 27.7 PG (27.0-31.0) Mean Corpuscular Hemoglobin Concent 33.3 G/DL (32.0-36.0) Red Cell Distribution Width 12.6 % (11.6-14.8) Platelet Count 202 K/UL (150-450) Mean Platelet Volume 6.2 FL (6.5-10.1) L Neutrophils (%) (Auto) 61.7 % (45.0-75.0) Lymphocytes (%) (Auto) 28.0 % (20.0-45.0) Monocytes (%) (Auto) 7.5 % (1.0-10.0) Eosinophils (%) (Auto) 1.7 % (0.0-3.0) Basophils (%) (Auto) 1.1 % (0.0-2.0) Prothrombin Time 10.5 SEC (9.30-11.50) Prothromb Time International Ratio 1.0 (0.9-1.1) Activated Partial Thromboplast Time 30 SEC (23-33) Sodium Level 137 MMOL/L (136-145) Potassium Level 4.1 MMOL/L (3.5-5.1) Chloride Level 103 MMOL/L (98-107) Carbon Dioxide Level 31 MMOL/L (21-32) Anion Gap 3 mmol/L (5-15) L Blood Urea Nitrogen 17 mg/dL (7-18) Creatinine 1.1 MG/DL (0.55-1.30) Estimat Glomerular Filtration Rate > 60 mL/min (>60) Glucose Level 102 MG/DL (74-106) Calcium Level 9.2 MG/DL (8.5-10.1) C-Reactive Protein, Quantitative 1.7 mg/dL (0.00-0.90) H Triglycerides Level 71 MG/DL (30-150) Cholesterol Level 111 MG/DL (< 200) LDL Cholesterol 52 mg/dL (<100) HDL Cholesterol 46 MG/DL (40-60) Cholesterol/HDL Ratio 2.4 (3.3-4.4) L Lipase 120 U/L (73-393) Thyroid Stimulating Hormone (TSH) 3.020 uiU/mL (0.358-3.740) Free Thyroxine 1.22 NG/DL (0.76-1.46) Height (Feet): 5 Height (Inches): 3.00 Weight (Pounds): 189 Medications Current Medications Medications (Trade) Dose Ordered Sig/Tez Route PRN Reason Start Time Stop Time Status Last Admin Dose Admin Acetaminophen (Tylenol) 650 mg Q4H PRN ORAL FEVER 02/02/19 17:45 03/04/19 17:44 Albuterol/ Ipratropium (Albuterol/ Ipratropium) 3 ml Q4H PRN HHN Shortness of Breath 02/02/19 17:45 02/07/19 17:44 Amlodipine Besylate (Norvasc) 5 mg DAILY ORAL 02/03/19 09:00 03/05/19 08:59 02/03/19 09:08 Aripiprazole (Abilify) 5 mg DAILY ORAL 02/03/19 09:00 03/05/19 08:59 02/03/19 09:08 Aspirin (ASA) 162 mg DAILY ORAL 02/03/19 09:00 03/05/19 08:59 02/03/19 09:08 Atorvastatin Calcium (Lipitor) 10 mg BEDTIME ORAL 02/02/19 23:15 03/04/19 23:14 02/02/19 23:27 Citalopram Hydrobromide (celeXA) 10 mg DAILY ORAL 02/03/19 09:00 03/05/19 08:59 02/03/19 09:08 Desmopressin Acetate (Ddavp) 1 spray TWICE A DAY NASAL 02/02/19 23:30 03/04/19 23:29 02/03/19 09:08 Diltiazem HCl (Cardizem) 10 mg Q1H PRN IV heart rate more than 120, 02/02/19 17:45 03/04/19 17:44 Enalaprilat (Vasotec) 2.5 mg Q6H PRN IV sbp more than 160 02/02/19 17:45 03/04/19 17:44 Fluticasone Propionate (Flonase) 1 spray DAILY NASAL 02/02/19 23:15 03/04/19 23:14 02/03/19 09:09 Heparin Sodium (Porcine) (Heparin 5000 units/ml) 5,000 units EVERY 12 HOURS SUBQ 02/02/19 21:00 03/04/19 20:59 Levothyroxine Sodium (Synthroid) 100 mcg Q24H ORAL 02/03/19 06:30 03/05/19 06:29 02/03/19 06:06 Metoprolol Succinate (Toprol XL) 25 mg DAILY ORAL 02/03/19 09:00 03/05/19 08:59 02/03/19 09:08 Mirtazapine (Remeron) 15 mg BEDTIME ORAL 02/02/19 21:00 03/04/19 20:59 02/02/19 21:34 Nitroglycerin (Ntg) 0.4 mg Q5M PRN SL Prn Chest Pain 02/02/19 17:45 03/04/19 17:44 Ondansetron HCl (Zofran) 4 mg Q6H PRN IVP Nausea & Vomiting 02/02/19 17:45 03/04/19 17:44 Polyethylene Glycol (Miralax) 17 gm DAILYPRN PRN ORAL Constipation 02/02/19 17:45 03/04/19 17:44 Regadenoson (Lexiscan) 0.4 mg ONCE PRN IV CARDIOLOGY 02/02/19 13:30 02/04/19 13:29 02/03/19 08:41 Temazepam (Restoril) 15 mg HSPRN PRN ORAL Insomnia 02/02/19 17:45 02/09/19 17:44 Terazosin HCl (Hytrin) 10 mg BEDTIME ORAL 02/02/19 23:15 03/04/19 23:14 02/02/19 23:27 Assessment/Plan Problem List: (1) ACS (acute coronary syndrome) ICD Codes: I24.9 - Acute ischemic heart disease, unspecified SNOMED: 431419048 (2) HTN (hypertension) ICD Codes: I10 - Essential (primary) hypertension SNOMED: 51029541 (3) Pancreatitis ICD Codes: K85.90 - Acute pancreatitis without necrosis or infection, unspecified SNOMED: 69104588 (4) Diabetes ICD Codes: E11.9 - Type 2 diabetes mellitus without complications SNOMED: 65879599 (5) Hx of CABG ICD Codes: Z95.1 - Presence of aortocoronary bypass graft SNOMED: 152976891, 691782086 Assessment/Plan: serial ekg, troponin, cardiology evaluation sliding scale diabetic diet dvt prophylaxis Chelsea Quigley MD Feb 03, 2019 14:58
--- NOTE | 2019-02-03 15:10 | NUR ---
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 98.8 HR 70 RR 16 B/P 134/57 TROP 0.016 D-DIMER 1.51 CXR= NO ACUTE PROCESS NM MYOCARD= NEGATIVE IS: ASA PO ADMITTED TO TELE TELE STATUS DCP RETURN HOME
[2019-02-03 16:00] VITALS: BP 112/61
--- NOTE | 2019-02-03 16:10 | NUR ---
NURSE NOTES: Communicated D-dimmer results form 02/[address] Garth Madrigal and Dr. Quigley. No orders at this time.
--- NOTE | 2019-02-03 19:25 | NUR ---
NURSE NOTES: Josey, social economist, informed Pt. has prescription ready at [facility]. To be confirmed with MD and given to Pt. upon discharge. Night nurse made aware.
--- NOTE | 2019-02-03 19:30 | NUR ---
HAND-OFF: Report given to ANYA Andrade. Patient watching TV. Denies any pain or SOB.
--- NOTE | 2019-02-03 19:30 | NUR ---
NURSE NOTES: Received patient from Tracee JOYNER. Patient standing at bedside watching TV. On room air, no s/s of respiratory distress. Patient is independent and ambulatory. Bed in low position, locked, call light within reach.
[2019-02-03 20:00] VITALS: BP 127/68
--- NOTE | 2019-02-03 21:15 | Progress Note ---
DATE: 02/03/2019 SUBJECTIVE: The patient is a 68-year-old male with chest pain, but he has a diagnosis of bipolar II, which has caused increased mood lability, worsened by stress of his medical illness. DIAGNOSIS: Bipolar II. PLAN: Treat him with Abilify 5 mg daily, Celexa 10 mg daily, and Remeron 15 mg at bedtime. Provide him with 20 minutes of cognitive behavioral therapy to help him identify his automatic negative thoughts and help convert negative thoughts to more positive thoughts to reduce depression, anxiety, mood lability. . Chart reviewed and discussed with staff. Chapincito Treadwell M.D. DR: Luz JOB#: [id number] CC:
[2019-02-04] VITALS: BP 122/71
[2019-02-04 04:00] VITALS: BP 125/69
[2019-02-04 06:50] LABS: BASOPHILS % (AUTO) 0.4 % (0.0-2.0); EOSINOPHILS % (AUTO) 1.7 % (0.0-3.0); HEMATOCRIT 36.3 % (42.0-52.0); MEAN CORPUSCULAR VOLUME 85 FL (80-99); MONOCYTES % (AUTO) 7.3 % (1.0-10.0); NEUTROPHILS % (AUTO) 63.7 % (45.0-75.0); PLATELET COUNT 193 K/UL (150-450); RED BLOOD COUNT 4.28 M/UL (4.70-6.10); WHITE BLOOD COUNT 6.4 K/UL (4.8-10.8)
[2019-02-04 06:58] LABS: ANION GAP 6 mmol/L (5-15); BLOOD UREA NITROGEN 20 mg/dL (7-18); CALCIUM 8.9 MG/DL (8.5-10.1); CARBON DIOXIDE 28 MMOL/L (21-32); CHLORIDE 103 MMOL/L (98-107); CREATININE 1.4 MG/DL (0.55-1.30); SODIUM 137 MMOL/L (136-145)
--- NOTE | 2019-02-04 07:25 | NUR ---
Report received from ANYA Andrade. AOx4. In RA. Denies any pain or SOB. Having breakfast at bedside. Bed on lowest position, side rails upx2, brakes engaged. Call light within easy reach.
[2019-02-04 08:00] VITALS: BP 116/63
[2019-02-04] MEDS: Heparin 5000 units/ml inj SUBQ SCH (09:00)
[2019-02-04] MEDS: Aspirin Baby 81mg ORAL SCH (09:21)
[2019-02-04] MEDS: Metoprolol Succinate XL 25mg tab ORAL SCH (09:22)
[2019-02-04] MEDS: Citalopram Hydrobromide 10mg Tab ORAL SCH (09:22)
[2019-02-04] MEDS: Flonase Nasal Inhaler 16gm NASAL SCH (09:25)
[2019-02-04] MEDS: Desmopressin Nasal 5ml NASAL SCH ×2 (09:25→17:49)
--- NOTE | 2019-02-04 10:49 | GI Progress Note ---
Assessment/Plan Problems: (1) ACS (acute coronary syndrome) ICD Codes: I24.9 - Acute ischemic heart disease, unspecified SNOMED: 259478304 (2) Diabetes ICD Codes: E11.9 - Type 2 diabetes mellitus without complications SNOMED: 63607532 (3) Anemia ICD Codes: D64.9 - Anemia, unspecified SNOMED: 690775881 (4) Pancreatitis ICD Codes: K85.90 - Acute pancreatitis without necrosis or infection, unspecified SNOMED: 38876129 Status: doing well, progressing Status Narrative Discussed with Dr. Herrera Assessment/Plan Follow-up cardiac recommendations No plans for endoscopy at this time. Patient may benefit from outpatient colonoscopy screening given last one was approximately 7 years ago pancreatitis resolved, lipid panel r/o hyperglycemia, negative PPI zofran prn pain mgmt Follow labs The patient was seen and examined at bedside and all new and available data was reviewed in the patients chart. I agree with the above findings, impression and plan. (Patient seen earlier today. Signature stamp does not reflect patient encounter time.). - Fan Herrera MD Subjective Subjective Patient denies any abdominal pain Denies any chest pain Objective Last 24 Hour Vital Signs Date Time Temp Pulse Resp B/P (MAP) Pulse Ox O2 Delivery O2 Flow Rate FiO2 02/04/19 09:22 67 116/63 02/04/19 09:21 67 116/63 02/04/19 08:00 69 02/04/19 08:00 97.7 67 18 116/63 (80) 98 02/04/19 06:45 67 16 95 Room Air 02/04/19 04:00 98.0 71 18 125/69 (87) 98 02/04/19 03:24 56 02/04/19 00:00 98.2 68 19 122/71 (88) 97 02/03/19 23:26 55 02/03/19 21:00 Room Air 02/03/19 20:00 98.1 66 18 127/68 (87) 98 66 02/03/19 19:45 66 02/03/19 19:40 68 18 96 Room Air 21 02/03/19 16:00 97.5 67 18 112/61 (78) 97 02/03/19 16:00 64 02/03/19 13:50 83 20 97 Room Air 02/03/19 12:00 98.1 66 18 101/58 (72) 98 02/03/19 12:00 67 Intake and Output 02/03/19 02/04/19 19:00 07:00 Intake Total 1150 ml Balance 1150 ml Intake Oral 1150 ml # Voids 4 5 Laboratory Tests Test 02/04/19 06:00 White Blood Count 6.4 K/UL (4.8-10.8) Red Blood Count 4.28 M/UL (4.70-6.10) L Hemoglobin 12.0 G/DL (14.2-18.0) L Hematocrit 36.3 % (42.0-52.0) L Mean Corpuscular Volume 85 FL (80-99) Mean Corpuscular Hemoglobin 27.9 PG (27.0-31.0) Mean Corpuscular Hemoglobin Concent 32.9 G/DL (32.0-36.0) Red Cell Distribution Width 12.0 % (11.6-14.8) Platelet Count 193 K/UL (150-450) Mean Platelet Volume 6.1 FL (6.5-10.1) L Neutrophils (%) (Auto) 63.7 % (45.0-75.0) Lymphocytes (%) (Auto) 27.0 % (20.0-45.0) Monocytes (%) (Auto) 7.3 % (1.0-10.0) Eosinophils (%) (Auto) 1.7 % (0.0-3.0) Basophils (%) (Auto) 0.4 % (0.0-2.0) Sodium Level 137 MMOL/L (136-145) Potassium Level 4.0 MMOL/L (3.5-5.1) Chloride Level 103 MMOL/L (98-107) Carbon Dioxide Level 28 MMOL/L (21-32) Anion Gap 6 mmol/L (5-15) Blood Urea Nitrogen 20 mg/dL (7-18) H Creatinine 1.4 MG/DL (0.55-1.30) H Estimat Glomerular Filtration Rate 50.2 mL/min (>60) Glucose Level 95 MG/DL (74-106) Calcium Level 8.9 MG/DL (8.5-10.1) Troponin I 0.000 ng/mL (0.000-0.056) Height (Feet): 5 Height (Inches): 3.00 Weight (Pounds): 193 General Appearance: WD/WN, no apparent distress, alert Cardiovascular: normal rate Respiratory/Chest: normal breath sounds, no respiratory distress Abdominal Exam: normal bowel sounds, non tender, soft Extremities: normal range of motion, non-tender Tom Ochoa NP Feb 04, 2019 10:49
--- NOTE | 2019-02-04 11:12 | Cardiac Electrophysiology PN ---
Assessment/Plan Assessment/Plan 1. Atypical chest pain in the patient with history of coronary artery bypass graft. EKG is nonischemic. Ruled out for CA . Had stress test that showed no ischemia. Echo Nl EF On aspirin 81 mg daily,Lipitor 10 mg daily and Toprol-XL 25 mg daily. 2. Hypertension. Continue Toprol-XL 25 and amlodipine 5 mg daily. 3. Benign prostatic hypertrophy. On terazosin. 4. Hypothyroidism. On Synthroid. 5. Diabetes insipidus. The patient is on desmopressin 10 mcg every 12 hours. 6. Depression. On citalopram and Abilify. PAULO RN OK to DC Subjective Subjective Had nuclear stress test yesterday that was nonischemic. Wants to go home.. Objective Last 24 Hour Vital Signs Date Time Temp Pulse Resp B/P (MAP) Pulse Ox O2 Delivery O2 Flow Rate FiO2 02/04/19 09:22 67 116/63 02/04/19 09:21 67 116/63 02/04/19 08:00 69 02/04/19 08:00 97.7 67 18 116/63 (80) 98 02/04/19 06:45 67 16 95 Room Air 21 02/04/19 04:00 98.0 71 18 125/69 (87) 98 02/04/19 03:24 56 02/04/19 00:00 98.2 68 19 122/71 (88) 97 02/03/19 23:26 55 02/03/19 21:00 Room Air 02/03/19 20:00 98.1 66 18 127/68 (87) 98 66 02/03/19 19:45 66 02/03/19 19:40 68 18 96 Room Air 21 02/03/19 16:00 97.5 67 18 112/61 (78) 97 02/03/19 16:00 64 02/03/19 13:50 83 20 97 Room Air 21 02/03/19 12:00 98.1 66 18 101/58 (72) 98 02/03/19 12:00 67 Intake and Output 02/03/19 02/04/19 19:00 07:00 Intake Total 1150 ml Balance 1150 ml Intake Oral 1150 ml # Voids 4 5 Laboratory Tests Test 02/04/19 06:00 White Blood Count 6.4 K/UL (4.8-10.8) Red Blood Count 4.28 M/UL (4.70-6.10) L Hemoglobin 12.0 G/DL (14.2-18.0) L Hematocrit 36.3 % (42.0-52.0) L Mean Corpuscular Volume 85 FL (80-99) Mean Corpuscular Hemoglobin 27.9 PG (27.0-31.0) Mean Corpuscular Hemoglobin Concent 32.9 G/DL (32.0-36.0) Red Cell Distribution Width 12.0 % (11.6-14.8) Platelet Count 193 K/UL (150-450) Mean Platelet Volume 6.1 FL (6.5-10.1) L Neutrophils (%) (Auto) 63.7 % (45.0-75.0) Lymphocytes (%) (Auto) 27.0 % (20.0-45.0) Monocytes (%) (Auto) 7.3 % (1.0-10.0) Eosinophils (%) (Auto) 1.7 % (0.0-3.0) Basophils (%) (Auto) 0.4 % (0.0-2.0) Sodium Level 137 MMOL/L (136-145) Potassium Level 4.0 MMOL/L (3.5-5.1) Chloride Level 103 MMOL/L (98-107) Carbon Dioxide Level 28 MMOL/L (21-32) Anion Gap 6 mmol/L (5-15) Blood Urea Nitrogen 20 mg/dL (7-18) H Creatinine 1.4 MG/DL (0.55-1.30) H Estimat Glomerular Filtration Rate 50.2 mL/min (>60) Glucose Level 95 MG/DL (74-106) Calcium Level 8.9 MG/DL (8.5-10.1) Troponin I 0.000 ng/mL (0.000-0.056) Objective HEAD AND NECK: No JVD. LUNGS: Clear. CARDIOVASCULAR: Regular S1 and S2 with no gallop or murmur. ABDOMEN: Soft and nontender. EXTREMITIES: No pitting edema. Henrique Braun MD Feb 04, 2019 11:12
[2019-02-04 12:00] VITALS: BP 118/66
--- NOTE | 2019-02-04 14:32 | General Progress Note ---
Assessment/Plan Problem List: (1) Edema ICD Codes: R60.9 - Edema, unspecified SNOMED: 436398180, 741797641 (2) Chest pain ICD Codes: R07.9 - Chest pain, unspecified SNOMED: 32538861 (3) HTN (hypertension) ICD Codes: I10 - Essential (primary) hypertension SNOMED: 44721459 (4) Diabetes ICD Codes: E11.9 - Type 2 diabetes mellitus without complications SNOMED: 94328350 (5) ACS (acute coronary syndrome) ICD Codes: I24.9 - Acute ischemic heart disease, unspecified SNOMED: 840879876 (6) Pancreatitis ICD Codes: K85.90 - Acute pancreatitis without necrosis or infection, unspecified SNOMED: 68509647 Status: stable, progressing Assessment/Plan: pain control abx cardio f/u dc if clear Subjective Constitutional: Reports: weakness Allergies: Coded Allergies: CODEINE (Verified Allergy, Unknown, 06/19/13) GRAPEFRUIT (Verified Allergy, Unknown, 05/10/17) All Systems: reviewed and negative except above Subjective sleepy calm Objective Last 24 Hour Vital Signs Date Time Temp Pulse Resp B/P (MAP) Pulse Ox O2 Delivery O2 Flow Rate FiO2 02/04/19 12:00 72 02/04/19 12:00 98.8 61 18 118/66 (83) 97 02/04/19 09:22 67 116/63 02/04/19 09:21 67 116/63 02/04/19 09:00 Room Air 02/04/19 08:00 69 02/04/19 08:00 97.7 67 18 116/63 (80) 98 02/04/19 06:45 67 16 95 Room Air 21 02/04/19 04:00 98.0 71 18 125/69 (87) 98 02/04/19 03:24 56 02/04/19 00:00 98.2 68 19 122/71 (88) 97 02/03/19 23:26 55 02/03/19 21:00 Room Air 02/03/19 20:00 98.1 66 18 127/68 (87) 98 66 02/03/19 19:45 66 02/03/19 19:40 68 18 96 Room Air 21 02/03/19 16:00 97.5 67 18 112/61 (78) 97 02/03/19 16:00 64 Intake and Output 02/03/19 02/04/19 19:00 07:00 Intake Total 1150 ml Balance 1150 ml Intake Oral 1150 ml # Voids 4 5 Laboratory Tests 02/04/19 06:00: White Blood Count 6.4, Red Blood Count 4.28L, Hemoglobin 12.0L, Hematocrit 36.3L , Mean Corpuscular Volume 85, Mean Corpuscular Hemoglobin 27.9, Mean Corpuscular Hemoglobin Concent 32.9, Red Cell Distribution Width 12.0, Platelet Count 193, Mean Platelet Volume 6.1L, Neutrophils (%) (Auto) 63.7, Lymphocytes ( %) (Auto) 27.0, Monocytes (%) (Auto) 7.3, Eosinophils (%) (Auto) 1.7, Basophils (%) (Auto) 0.4, Sodium Level 137, Potassium Level 4.0, Chloride Level 103, Carbon Dioxide Level 28, Anion Gap 6, Blood Urea Nitrogen 20H, Creatinine 1.4H, Estimat Glomerular Filtration Rate 50.2, Glucose Level 95, Calcium Level 8.9, Troponin I 0.000 Height (Feet): 5 Height (Inches): 3.00 Weight (Pounds): 193 General Appearance: lethargic EENT: PERRL/EOMI Neck: normal alignment Cardiovascular: normal peripheral pulses, normal rate, regular rhythm Respiratory/Chest: chest wall non-tender, lungs clear, normal breath sounds Abdomen: normal bowel sounds, non tender, soft Extremities: normal inspection Edema: no edema noted Arm (L), no edema noted Arm (R), no edema noted Leg (L), no edema noted Leg (R), no edema noted Pedal (L), no edema noted Pedal (R), no edema noted Generalized Neurologic: motor weakness Skin: normal pigmentation, warm/dry Garth Madrigal DO Feb 04, 2019 14:32
[2019-02-04 16:00] VITALS: BP 108/59
--- NOTE | 2019-02-04 16:02 | NUR ---
NURSE NOTES: Patient aware of DC planning. Clarified medication refill with [facility] pharmacy. Clarified HH information being communicated with [facility] by sr community manager (Yesika). Pt to notify family of discharge.
--- NOTE | 2019-02-04 18:00 | Progress Note ---
DATE: 02/04/2019 SUBJECTIVE: This is a 68-year-old male patient with chest pain, but this patient has for over 2 years of altered mental status and mood lability worsened by the stress of his medical illness. That is why, his attending physician has requested daily psychiatric consultation. MENTAL STATUS EXAMINATION: A 68-year-old male. Appearance is well groomed. Attitude, irritable and agitated. Affect, labile. Intellect poor. Mood, depressed and anxious. Motor activity, psychomotor agitation. Insight and judgment is poor. DIAGNOSIS: Bipolar 2. PLAN: Treat him with Abilify 5 mg a day, Celexa 10 mg daily, and Remeron 15 mg at bedtime. A 20 minutes of cognitive behavioral therapy to help him identify his automatic negative thoughts and help convert his negative thoughts to more positive thoughts to reduce depression, anxiety, and mood lability. Chart reviewed. Discussed with staff. Seen and assessed in his room. Chapincito Treadwell M.D. DR: LILY JOB#: [id number] CC:
--- NOTE | 2019-02-04 18:51 | Cardiology Report ---
APPROVED REPORT EKG Measurement Heart [id number] Sinus rhythm with 1st degree AV block Otherwise normal ECG
--- NOTE | 2019-02-04 19:00 | NUR ---
NURSE NOTES: Patient in stable condition. VS stable with BP 117/71, P 67, RR18, T 97.0. IV removed. log turner removed, cleaned and stored. Name band removed. Provided with ordered medication from [facility] pharmacy, list of meds copied and filed. Pt's own medication returned back to Pt. Belongings checked with Pt. signed and filed. Discharge instructions printed and provided. Left floor safe, via wheelchair, accompanied by REGISTERED DENTAL ASSISTANT. Patient provided with taxi voucher.
--- NOTE | 2019-02-05 10:08 | Discharge Summary ---
Discharge Summary Discharge Summary _ DATE OF ADMISSION: 02/02/2019 DATE OF DISCHARGE: 02/04/2019 DISCHARGED BY: Dr Madrigal REASON FOR ADMISSION: 68 years old male with past medical history of hypertension, diabetes insipidus , coronary artery disease with history of CABG, depression, hypercholesterolemia, presented with left-sided chest discomfort, intermittent in nature, nonradiating, moderate intensity, without associated exacerbating factors. Onset of discomfort happened during the rest. No leg swelling. No orthopnea. No dizziness, no palpitation, no diaphoresis. Upon evaluation vital signs were stable. Laboratory work-up revealed no leukocytosis, stable hemoglobin and hematocrit. D-dimer 1.51. Stable electrolytes. BUN 21, creatinine 1.3. Next glucose 119. Sodium 137. Urine toxicology screen was negative. Troponin negative, pro BNP 169. EKG revealed sinus rhythm, no acute ischemic changes. Lipase 564. Chest x-ray revealed no acute cardiopulmonary pathology. Patient admitted to telemetry floor for further management. CONSULTANTS: town administrator Dr. Byers pulmonary/critical care Dr. Quigley GI specialist Dr. Herrera psychiatrist Dr. Treadwell [facility] COURSE: Patient admitted to telemetry floor. Cardiology and pulmonology followed. Serial troponin were negative. EKG revealed no acute ischemic changes. Patient was ruled out for acute [place]. Echocardiogram revealed preserved ejection fraction 60 to 65% with mild left ventricular hypertrophy, no evidence of wall motion abnormality. Right ventricular systolic pressure of 18. Patient subsequently undergone a myocardial perfusion scan test which was negative . Antiplatelet therapy with aspirin continued. Beta-kimberley continued. Per town administrator chest pain was atypical . Serial troponin were negative. ECG revealed no acute ischemic changes. Patient was ruled out for acute TN. Patient was on antiplatelet therapy with aspirin , statin and beta blockage. Blood pressure was managed with beta-kimberley and calcium channel kimberley/ amlodipine. Terazosin continued. Patient was continue on desmopressin 10 mcg every 12 hours . Electrolytes remained stable. DVT prophylaxis provided. Supplemental oxygen and handheld nebulizing therapy were on board as needed. Pulse oximetry was stable on room air. GI specialist seen patient for pancreatitis and anemia. LFT and bilirubin remained stable. Lipase trended down to normal. No abdominal symptoms. Hemoglobin and hematocrit were closely monitored with goal to keep hemoglobin above 7. Hemoglobin and hematocrit remained at baseline; prior to discharge hemoglobin 12, hematocrit 36.3. Per GI specialist no plans for endoscopy at this time. Patient may benefit from outpatient colonoscopy screening , which was done once about 7 years ago. Supportive care provided. Patient started on PPI. Antiemetic provided as needed. Pain management was addressed as needed. Patient was able to tolerate diet. Psychiatrist seen and evaluated patient, and diagnosed patient with bipolar type II. Psychiatric medication regimen was optimized as per psychiatrist recommendation. Cognitive behavioral therapy provided. Patient clinically stabilized and was ready for discharge home with resuming home health services at [facility]. FINAL DIAGNOSES: Atypical chest pain Coronary artery disease with history of CABG Hypertension BPH Hypothyroidism Diabetes insipidus Pancreatitis Anemia DISCHARGE MEDICATIONS: See Medication Reconciliation list. DISCHARGE INSTRUCTIONS: Patient was discharged home with home health services Follow up with primary care provider in one week. I have been assigned to dictate discharge summary for this account. I was not involved in the patient's management. Sydnie Ceja NP Feb 05, 2019 10:08
--- NOTE | 2019-02-11 23:29 | Coder Physician Query ---
PLEASE COMPLETE THE DOCUMENT BEFORE SIGNING Dear Dr. Braun, Date: 02/11/19 X Ray Service Engineer/CDS' Name: ALEJO SINGLETARY [employer] Exercise your independent professional judgment when responding to query. Questions asked do not imply particular answer is desired or expected. We greatly appreciate your clarification on this issue. HOSPITAL COURSE: Cardiology and pulmonology followed. Serial troponin were negative. EKG revealed no acute ischemic changes. Patient was ruled out for acute [place]. Echocardiogram revealed preserved ejection fraction 60 to 65% with mild left ventricular hypertrophy, no evidence of wall motion abnormality. Right ventricular systolic pressure of 18. Patient subsequently undergone a myocardial perfusion scan test which was negative . Per roller embosser chest pain was atypical GI specialist seen patient for pancreatitis and anemia. LFT and bilirubin remained stable. Lipase trended down to normal. No abdominal symptoms. Hemoglobin and hematocrit were closely monitored with goal to keep hemoglobin above 7. FINAL DIAGNOSES: Atypical chest pain Please document the suspected etiology of Chest Pain: a.Type: []Cardiac []Non-cardiac []Unspecified b.Etiology - cardiac [] Aortic dissection []Mitral valve prolapsed [] Acute myocardial infarction []Spasm of coronary arteries [] Coronary Artery Disease []Pericarditis c.Etiology - non-cardiac [] Anxiety []Pleurisy [] Cancer []Pneumonia, type [] Costochondritis []Pneumothorax [] GERD/Esophagitis []Pulmonary embolism [] Unable to determine []Other: BRANT HAZEL D.O. DATE & [facility]
--- NOTE | 2019-02-16 19:28 | Cardiology Report ---
APPROVED REPORT EXAM: Two-dimensional and M-mode echocardiogram with Doppler and color Doppler. INDICATION Chest Pain M-Mode DIMENSIONS IVSd1.0 (0.7-1.1cm)Left Atrium (MM)4.4 (1.6-4.0cm) LVDd5.1 (3.5-5.6cm)Aortic Root2.8 (2.0-3.7cm) PWd0.8 (0.7-1.1cm)Aortic Cusp Exc.2.0 (1.5-2.0cm) IVSs1.4 cm LVDs3.9 (2.5-4.0cm) PWs1.0 cm Normal left ventricular chamber size, systolic function and wall motion . Left ventricular ejection fraction estimated to be 60-65%. Mild left ventricular hypertrophy by 2-D. No evidence of pericardial effusion. All other cardiac chamber sizes are within normal limits. Aortic valve calcification with normal cusp excursion . Mildly thickened mitral valve leaflets with normal excursion. Mild mitral annulus and aortic root calcification. Pulmonic valve not well visualized. IVC at size 2.3 cm with physiologic collapse . A color flow and spectral Doppler study was performed and revealed: Mild aortic insufficiency . Mitral diastolic velocities suggest reduced left ventricular relaxation c/w mild LV diastolic dysfunction (Grade I ) Mild mitral regurgitation. Trace tricuspid regurgitation. Tricuspid systolic velocities suggests peak right ventricular systolic pressure of 18mmHg.
== END 2019-02-04 19:00 | disposition home health service (06) | DRG 313 ==
LOC: EMR 11:24 → 2E 11:43 → EDBEDREQ 12:22 → 2E 12:59
DX: R07.89 Other chest pain (principal); K85.90 Acute pancreatitis without necrosis or infection, unspecified; E23.2 Diabetes insipidus; F31.81 Bipolar II disorder; I10 Essential (primary) hypertension; N40.0 Benign prostatic hyperplasia without lower urinary tract symptoms; E03.9 Hypothyroidism, unspecified; D64.9 Anemia, unspecified; Z88.6 Allergy status to analgesic agent; Z95.1 Presence of aortocoronary bypass graft; I25.10 Atherosclerotic heart disease of native coronary artery without angina pectoris; F41.9 Anxiety disorder, unspecified; R60.9 Edema, unspecified
CPT/HCPCS: 36415; 71045; 78452; 80048; 80053; 80061; 80307; 82550; 82553; 83690; 83880; 84439; 84443; 84484; 85025; 85379; 85610; 85730; 86140; 93005; 93017; 93306; 94664; 96372; 99285; J2785

== ENCOUNTER 2020-07-26 10:05 | Day surgery (SDC) | payer MEDICARE, OTHER, SELFPAY ==
[2020-07-26] VITALS (7 sets, daily range): BP systolic 148–166; BP diastolic 71–77
[~2020-07-26] VITALS: Ht 162.6 cm; Wt 83.9 kg
[~2020-07-26 10:05] MED LIST changes: +Cyclopentolate 2% Opth Sol ONE; +Phenylephrine 2.5% Op 2ml Soln ONE; +TERAZOSIN HCL1 MG ORAL; +Tetracaine 0.5% Opth 4ml Soln ONE; +Tetracaine 0.5% Opth 4ml Soln RIGHT EYE SCH; +VITAMIN D250000 UNI1 ORAL; +Vigamox Opth Soln 3ml ONE
[2020-07-26] MEDS: Cyclopentolate 2% Opth Sol RIGHT EYE SCH ×3 (10:26→10:39)
[2020-07-26] MEDS: Phenylephrine 2.5% Op 2ml Soln RIGHT EYE SCH ×3 (10:26→10:39)
[2020-07-26] MEDS: Vigamox Opth Soln 3ml RIGHT EYE SCH ×3 (10:26→10:39)
--- NOTE | 2020-07-26 11:57 | Anethesia Preoperative Eval ---
Anesthesia Pre-op PMH/ROS General Date of Evaluation: Jul 26, 2020 Time of Evaluation: 12:39 Anesthesiologist: Adali ASA Score: ASA 3 Mallampati Score Class I : Soft palate, uvula, fauces, pillars visible Class II: Soft palate, uvula, fauces visible Class III: Soft palate, base of uvula visible Class IV: Only hard plate visible Mallampati Classification: Class III Surgeon: Bello Diagnosis: Cataract OD Surgical Procedure: Cat Ext IOL OD Anesthesia History: none Family History: no anesthesia problems Allergies: Coded Allergies: CODEINE (Verified Allergy, Intermediate, UPSET STOMACH , 07/22/20) GRAPEFRUIT (Verified Adverse Reaction, Severe, 07/22/20) WEAKNESS, SHAKING Medications: see eMAR Patient NPO?: Yes Past Medical History Cardiovascular: Reports: HTN, CAD Gastrointestinal/Genitourinary: Reports: other - BPH,UTI Neurologic/Psychiatric: Reports: depression/anxiety Endocrine: Reports: DM HEENT: Reports: cataract (L), cataract (R) Musculoskeletal/Integumentary: Reports: other - Back Pain Other: obesity - BMI 33 PSxH Narrative: CABG, Hemorrhoidectomy Anesthesia Pre-op Phys. Exam Physician Exam Last Vital Signs Date Time Temp Pulse Resp B/P (MAP) Pulse Ox O2 Delivery O2 Flow Rate FiO2 07/26/20 10:40 Room Air 07/26/20 10:25 97.8 70 18 166/74 98 Constitutional: NAD Neurologic: CN 2-12 intact Cardiovascular: RRR Respiratory: CTA Gastrointestinal: S/NT/ND Airway Exam Mallampati Score: Class III MO: limited ROM: limited Teeth: missing, intact Anesthesia Pre-op A/P Risk Assessment & Plan Assessment: ASA 3 Plan: TIVA Status Change Before Surgery: No Davey Bro MD Jul 26, 2020 11:57
--- NOTE | 2020-07-26 11:58 | Immediate Post-Op Evaluation ---
Immediate Post-Op Evalulation Immediate Post-Op Evalulation Procedure: Cat Ext IOL OD Date of Evaluation: Jul 26, 2020 Time of Evaluation: 14:19 IV Fluids: 600 LR Blood Products: 0 Estimated Blood Loss: 2 Urinary Output: 0 Blood Pressure Systolic: 165 Blood Pressure Diastolic: 77 Pulse Rate: 61 Respiratory Rate: 16 O2 Sat by Pulse Oximetry: 100 Temperature (Fahrenheit): 97.1 Pain Score (1-10): 1 Nausea: No Vomiting: No Complications 0 Patient Status: awake, reacts, patent, none Hydration Status: adequate Davey Bro MD Jul 26, 2020 11:58
[2020-07-26] MEDS ORDERED: Labetalol 5mg/ml 20ml vial IV PRN (12:00)
[2020-07-26] MEDS ORDERED: LORazepam Inj 2mg/ml 1ml IV PRN (12:00)
[2020-07-26] MEDS ORDERED: fentaNYL 100 mcg/2 mL IV PRN (12:00)
[2020-07-26] MEDS ORDERED: Meperidine 25mg/1ml Inj (FOR RIGORS ONLY) IV PRN (12:00)
[2020-07-26] MEDS ORDERED: DiphenhydrAMINE 50mg/ml Inj IVP PRN (12:00)
[2020-07-26] MEDS ORDERED: Metoclopramide 10mg/2ml Inj IVP PRN (12:00)
[2020-07-26] MEDS ORDERED: LR 1000ml 1,000 ML IVLG SCH (12:00)
[2020-07-26] MEDS ORDERED: Midazolam 2mg/2ml Inj IVP PRN (12:00)
[2020-07-26] MEDS ORDERED: Ketorolac 30mg Inj IV PRN ×2 (12:00)
[2020-07-26] MEDS ORDERED: Atropine Sulfate 0.4mg/ml inj IVP PRN (12:00)
--- NOTE | 2020-07-26 12:00 | 48 Hour Post Anesthesia Eval ---
Post Anesthesia Evaluation Procedure: Cat Ext IOL OD Date of Evaluation: Jul 26, 2020 Time of Evaluation: 16:24 Blood Pressure Systolic: 163 0: 72 Pulse Rate: 62 Respiratory Rate: 18 Temperature (Fahrenheit): 97.4 O2 Sat by Pulse Oximetry: 98 Airway: patent Nausea: No Vomiting: No Pain Intensity: 1 Hydration Status: adequate Cardiopulmonary Status: Stable Mental Status/LOC: patient returned to baseline Follow-up Care/Observations: 0 Post-Anesthesia Complications: 0 Follow-up care needed: ready to discharge Davey Bro MD Jul 26, 2020 12:00
[2020-07-26] MEDS ORDERED: Midazolam 2mg/2ml Inj ONE (12:09)
[2020-07-26] MEDS ORDERED: Lidocaine 2% MPF 5ml Vial INJ ONE (12:15)
[2020-07-26] MEDS ORDERED: Maxitrol Opth Oint 3.5gm ONE (12:15)
[2020-07-26] MEDS ORDERED: BSS 15ml BTL ONE ×2 (12:16→14:10)
[2020-07-26] MEDS ORDERED: Lidocaine 1% MPF 10mg/ml 5ml ONE ×2 (12:16→12:30)
[2020-07-26] MEDS ORDERED: EPINEPHrine 1mg/1ml Amp ONE (12:16)
[2020-07-26] MEDS ORDERED: BSS 500ml btl ONE (12:16)
[2020-07-26] MEDS ORDERED: Povidone-Iodine 5% opth solution ONE (12:16)
[2020-07-26] MEDS ORDERED: Tetracaine 0.5% Opth 4ml Soln ONE (12:17)
[2020-07-26] MEDS ORDERED: Acetylcholine Injection (OR) ONE (12:17)
[2020-07-26] MEDS ORDERED: Healon Duet Dual Pack ONE (12:17)
[2020-07-26] MEDS ORDERED: NS Irrig 1000ml ONE (12:30)
[2020-07-26] MEDS ORDERED: LR 1000ml ONE (12:30)
[2020-07-26] MEDS ORDERED: Sterile Water Irrig 1000ml IRRIG ONE (12:30)
--- NOTE | 2020-07-26 12:37 | Pre-Procedure Note/Attestation ---
Pre-Procedure Note/Attestation Complete Prior to Procedure Planned Procedure: right Procedure Narrative: Phako and Toric IOL implant Indications for Procedure Pre-Operative Diagnosis: cataract right eye corneal astigmatism right eye Fuchs corneal dystrophy Attestation I attest that I discussed the nature of the procedure; its benefits; risks and complications; and alternatives (and the risks and benefits of such alternatives), prior to the procedure, with the patient (or the patient's legal wholesale representative). I attest that, if there was a reasonable possibility of needing a blood transfusion, the patient (or the patient's legal wholesale representative) was given the [facility] standardized written summary, pursuant to the [place] Blood Safety Act ([place] Health and Safety Code # 1645, as amended). I attest that I re-evaluated the patient just prior to the surgery and that there has been no change in the patient's H&P, except as documented below: Jamil Monsalve MD Jul 26, 2020 12:37
[2020-07-26] MEDS ORDERED: Lidocaine 4% Amp 5ml ONE (14:10)
--- NOTE | 2020-07-26 14:11 | Brief Operative Note ---
Immediate Post Operative Note Operative Note Chief Complaint: blurred vision affecting quality of life Pre-op Diagnosis: cataract right eye corneal astigmatism right eye Fuchs corneal dystrophy Procedure: Phako and Toric IOL OS Post-op Diagnosis: same Post-op Diagnosis: same as pre-op Surgeon: Jamil Monsalve Production Finisher: none Additional Surgeons: none Anesthesiologist: Adali Anesthesia: MAC Specimen: none Complications: none Condition: stable Fluids: LR TKO Estimated Blood Loss: none Drains: none Packing: none Implant(s) used?: Yes Jamil Monsalve MD Jul 26, 2020 14:11
--- NOTE | 2020-08-05 01:59 | Operative Note - Dictated ---
DATE OF OPERATION: 07/26/2020 PREOPERATIVE DIAGNOSES: 1. Degenerative cataract, combined, right eye. 2. Fuchs endothelial dystrophy. 3. Significant corneal astigmatism, right eye. POSTOPERATIVE DIAGNOSES: 1. Degenerative cataract, combined, right eye. 2. Fuchs endothelial dystrophy. 3. Significant corneal astigmatism, right eye. PROCEDURE: Right extracapsular cataract extraction by phacoemulsification and primary insertion of a Toric intraocular lens implant. SURGEON: Jamil Monsalve M.D. ANESTHESIA: MAC. ANESTHESIOLOGIST: Davey Bro M.D. INDICATIONS: The best corrected vision is 20/60. FINDINGS: See indications and diagnoses. DESCRIPTION OF PROCEDURE: The patient received preoperatively topical antibiotics, dilating drops, tetracaine, and was brought into the operating room and given satisfactory sedation. He was then given a total of 10 mL of a mixture of half and half Xylocaine 2% with epinephrine and Marcaine 0.5% as modified Parmer akinesia and peribulbar anesthesia (4 mL). The patient was then prepped and draped in the usual manner. A Gemma speculum was placed and axis marking system was introduced into the field. Based on previously made depths of the horizontal meridian for orientation, the 107-degree axis was marked was removed from the field. At this point, a vertical incision was made at the 230-degree position, 3 mm wide with a crescent blade. The anterior chamber was penetrated at the 6 o'clock position with a Superblade. Shugarcaine was used to increase pupil dilation and provide further anesthesia. The anterior chamber was then filled with viscoelastic. It was penetrated through the vertical incision with a 3 mm wide keratome. Capsulorrhexis was done followed by hydrodissection. The nucleus was uneventfully phacoemulsified with the [employer] INFINITI unit. Cortical remnants were removed with the I/A tip of the same unit. The intraocular lens was removed from its pack. It is a model [id number] from [employer]. The power is 8.0 D+4.50CYL. The serial number is [id number]. The lens was carefully inspected and loaded onto the [place] II delivery system and injected into the capsular bag with the haptics dialed to the vertical meridian and to the 107-degree axis and the stability of the lens was checked and was found to be adequate. Viscoelastic was then removed with the I/A tip of the Kelman unit. Miochol was injected to pupil smaller. The incisions were closed by hydration and were watertight. Dexamethasone was injected, 0.5 mL, into the inferior [place] space. Vigamox drops and TobraDex/Maxitrol ointment were applied. The eye was closed. The patch and shield were applied. The patient tolerated well procedure and left the operating room in a good condition. Final diagnoses and procedures are as above. Jamil Monsalve M.D. DR: Jack JOB#: [id number] CC:
== END 2020-07-26 14:50 | disposition home or self-care (01) ==
LOC: SUR 10:05
DX: H25.811 Combined forms of age-related cataract, right eye (principal); H18.511 Endothelial corneal dystrophy, right eye; H52.201 Unspecified astigmatism, right eye; Z88.6 Allergy status to analgesic agent; I11.9 Hypertensive heart disease without heart failure; I25.10 Atherosclerotic heart disease of native coronary artery without angina pectoris; E11.9 Type 2 diabetes mellitus without complications; F32.9 Major depressive disorder, single episode, unspecified; F41.9 Anxiety disorder, unspecified; E66.9 Obesity, unspecified; Z95.1 Presence of aortocoronary bypass graft; Z68.31 Body mass index [BMI] 31.0-31.9, adult
CPT/HCPCS: 66984; 94003; J0171; J2250; J2704; J3370; J7120; U0004; 94150